=== PATIENT | female | born 1970 | race Caucasian/White ===

== ENCOUNTER → 2018-01-24 08:54 | Outpatient (CLI) | payer MEDICARE, OTHER, SELFPAY ==
--- NOTE | 2018-01-24 08:56 | MM_ITS ---
MM Dig screening mamm BI w/CAD CAD Screening COMPARISON: Digital mammograms with CAD 01/12/2017 INDICATION: There is no personal or family history of breast cancer TECHNIQUE: Standard CC and MLO images were obtained. R2 CAD reviewed. FINDINGS: The breasts are composed primarily of fat with minimal scattered fibroglandular densities throughout each breast. There are scattered benign-appearing calcifications in each breast. There is minimal arterial calcification right breast. There is no suspicious lesion and there are no suspicious microcalcifications. IMPRESSION: Fatty type breast parenchyma with no suspicious lesion seen BI-RADS Category: 2 Benign Finding(s) RECOMMENDED FOLLOW-UP: 1YR - 1 YEAR FOLLOW-UP (A letter has been sent to the patient regarding results of the study.)
== END ==
PROVIDERS: PCP Emergency Medicine; Visit Provider Emergency Medicine
DX: Z12.31 Encounter for screening mammogram for malignant neoplasm of breast (principal)
CPT/HCPCS: 77067

== ENCOUNTER → 2019-02-15 09:43 | Outpatient (CLI) | payer MEDICARE, OTHER, SELFPAY ==
--- NOTE | 2019-02-15 09:43 | MM_ITS ---
PROCEDURE: MM DIG SCREENING MAMM BI W/CAD Patient Age:48Y CLINICAL INDICATION: screening 48-year-old female screening mammogram no hormones no new complaints noncontributory family history COMPARISON: [facility] DIG MAMM-SCREEN ACE W/CAD from 01/12/2017 [facility] MM Dig screening mamm BI w/CAD from 01/24/2018 TECHNIQUE: Standard CC and MLO images were obtained. R2 CAD reviewed. Large breast requiring additional CC and MLO views bilaterally so as to imaging entire breast FINDINGS: A generalized fatty replacement with minimal fibroglandular elements bilaterally. Scattered benign round dense calcifications bilateral. No new suspicious or dominant mass, no suspicious calcifications. No significant change since previous studies. The bilateral follow-up in 1 year recommended IMPRESSION: Stable bilateral mammogram. Bilateral follow-up1 year recommended. Low-density breast generalized fatty replacement with benign appearing calcifications bilaterally BI-RAD Category: 2 Benign Finding(s) FOLLOW-UP: 1YR 1 Year Follow-up (A letter has been sent to the patient regarding results of the study.) Dictated by: Ulysses Vaz MD 02/19/2019 17:49 Electronically signed by Ulysses Vaz MD in [place] 02/19/2019 17:49
== END ==
PROVIDERS: PCP Emergency Medicine; Visit Provider Emergency Medicine
DX: Z12.31 Encounter for screening mammogram for malignant neoplasm of breast (principal)
CPT/HCPCS: 77067

== ENCOUNTER → 2023-02-04 10:16 | Outpatient (CLI) | payer MEDICARE, OTHER, SELFPAY ==
--- NOTE | 2023-02-04 10:19 | MM_ITS ---
PROCEDURE INFORMATION: Exam: MG Bilateral Screening 3D Mammography Exam date and time: 02/04/2023 10:25 AM Age: 52 years old Clinical indication: Screening mammogram TECHNIQUE: Imaging protocol: Bilateral Screening tomosynthesis and 2D mammography including computer-aided detection (CAD) when performed. COMPARISON: 1. MG MM DIG SCREENING MAMM BI W/CAD 02/15/2019 9:53 AM 2. MG [facility] MM Dig screening mamm BI w/CAD 01/24/2018 9:19 AM 3. MG [facility] DIG MAMM-SCREEN ACE W/CAD 01/12/2017 3:41 PM FINDINGS: MAMMOGRAPHY: Breast composition: There are scattered areas of fibroglandular density. Mass: None. Architectural distortion: No new or suspicious architectural distortion. Calcifications: No new or suspicious calcifications are present Asymmetric density: No new or suspicious asymmetric density is present Skin thickening: None. Axillary adenopathy: None. IMPRESSION: No mammographic evidence of malignancy. Recommend annual screening mammography unless otherwise clinically indicated. ASSESSMENT: BI-RADS category 1: Negative
== END ==
PROVIDERS: PCP Internal Medicine; Visit Provider Internal Medicine
DX: Z12.31 Encounter for screening mammogram for malignant neoplasm of breast (principal)
CPT/HCPCS: 77063; 77067

== ENCOUNTER 2023-06-26 10:51 | Inpatient (IN) | payer MEDICARE, OTHER, SELFPAY ==
[2023-06-26] VITALS (22 sets, daily range): BP systolic 89–143; BP diastolic 33–82; PULSE 110–129; RESP 16–32; TEMP 36.4–37; O2SAT 88–98; BMI 47.7; BMI 46.2; BMI 46.3
--- NOTE | 2023-06-26 10:28 | PC.NURSE ---
DR KO AT BEDSIDE
--- NOTE | 2023-06-26 10:31 | ECG_ITS ---
APPROVED REPORT Exam: Resting ECG HR:129 bpm ECG Measurements Heart Rate 129 AXES MD 159 P -66 QRSd 161 QRS -60 QT 368 T 110 QTc 444 Conclusion ECTOPIC ATRIAL TACHYCARDIA INTRAVENTRICULAR CONDUCTION DELAY [130+ ms QRS DURATION] LATERAL MYOCARDIAL INFARCTION , PROBABLY RECENT [40+ ms Q WAVE AND/OR ST/T Left bundle branch block with borderline excessive discordance Electronically signed by : GIDEON KO, 06/26/2023 12:41:47
--- NOTE | 2023-06-26 10:37 | CT_ITS ---
PROCEDURE INFORMATION: Exam: CTA Chest With Contrast Exam date and time: 06/26/2023 11:19 AM Age: 53 years old Clinical indication: Pain; Radiating; Additional info: Prev cp to back, hypoxic/tachy TECHNIQUE: Imaging protocol: Computed tomographic angiography of the chest with contrast. Exam focused on the arteries. 3D rendering (Not supervised by radiologist): MIP and/or 3D reconstructed images were created by the technologist. Radiation optimization: All CT scans at this facility use at least one of these dose optimization techniques: automated exposure control; mA and/or kV adjustment per patient size (includes targeted exams where dose is matched to clinical indication); or iterative reconstruction. Contrast material: ISOVUE; Contrast volume: 100 ml; Contrast route: INTRAVENOUS (IV); COMPARISON: No relevant prior studies available. FINDINGS: Pulmonary arteries: Normal. No pulmonary emboli. Aorta: Unremarkable. No aortic aneurysm. No aortic dissection. Lungs: There is interstitial prominence in both lungs likely representing a component of interstitial edema. In addition there are subtle hazy opacities in the right upper lobe which could represent developing pneumonia. Pleural spaces: Small right pleural effusion. No pneumothorax. Heart: Unremarkable. No cardiomegaly. No pericardial effusion. Coronary arteries: Calcified coronary artery disease. Lymph nodes: Unremarkable. No enlarged lymph nodes. Bones/joints: Chronic degenerative disc disease of the midthoracic spine. Soft tissues: Unremarkable. IMPRESSION: 1. No evidence of PE 2. Calcified coronary artery disease 3. Small right pleural effusion 4. Interstitial prominence throughout both lungs concerning for mild interstitial edema 5. Subtle hazy opacities in the right upper lobe concerning for pneumonia
--- NOTE | 2023-06-26 10:40 | PC.NURSE ---
DR KO SPEAKING WITH DR BECERRA
[2023-06-26 10:41] LABS: VBG HCO3 16.9 mmol/L (23-30); VBG Oxygen Saturation 70.3 % (50-70); VBG PCO2 32.6 mmol/L (35-51); VBG PH 7.33 mmol/L (7.31-7.41); VBG PO2 41.2 mmol/L (28-40); VBG Total CO2 17.9 mmol/L (23-27)
--- NOTE | 2023-06-26 10:41 | HMH.EDCP ---
Discharge Plan Disposition Patient Disposition: Admitted Chief Complaint: Shortness of Breath/Dyspnea Prescriptions Prescriptions: No Action metformin 500 mg tablet 500 mg PO BID citalopram 40 mg tablet 40 mg PO DAILY simvastatin 20 mg tablet 20 mg PO DAILY levothyroxine 150 mcg tablet 150 mcg PO DAILY norethindrone acetate 5 mg tablet 5 mg PO DAILY ibuprofen 600 mg tablet 600 mg PO Q6HP PRN (Reason: Arthritis) Patient Comments: GIVE 1 TABLET BY MOUTH WITH FOOD EVERY 6 HOURS NEEDED bupropion HCl 300 mg tablet extended release 24 hr 300 mg PO DAILY lactulose 10 gram/15 mL solution 30 ml PO BID Patient Comments: GIVE 30ML BY MOUTH TWICE A DAY NEEDED FOR CONSTIPATION Icy Hot 30-10 % cream 1 applic TOPICAL BIDP PRN (Reason: Arthritis) Patient Comments: APPLY TO AFFECTED AREAS 2 TIMES A DAY NEEDED insulin glargine [Lantus Solostar U-100 Insulin] 100 unit/mL (3 mL) insulin pen 7 unit SQ DAILY Patient Comments: Inject 7 unit subcutaneously once a day Referrals Follow up/Referrals: Foreign Cotter DO [Primary Care Provider] - See instructions Clinical Impressions Clinical Impression: ACS (acute coronary syndrome), Pneumonia, Hyperosmolar hyperglycemic state (HHS), Acute hypoxic respiratory failure Discharge ED Provider: Cortes Hussein HPI General Chief Complaint: Shortness of Breath/Dyspnea Stated Complaint: SOA/ possible stemi Time Seen by Provider: 06/26/23 10:51 History of Present Illness HPI narrative: Patient is a 53-year-old female with past medical history of hypertension, hyperlipidemia, insulin-dependent diabetes who presents emergency department for evaluation of shortness of breath and chest pain. Patient had some chest pain on Tuesday, there was associated back pain. Since then she has not had chest pain however she has had persistent shortness of breath. She lives at [facility] and she was found to have pulse ox in the 50s at [facility], upon EMS arrival pulse ox was in the 80s requiring nonrebreather to get to greater than 90%. IV access obtained and patient was transferred here for continued evaluation. Patient denies current chest pain, abdominal pain, acute rashes or arthralgias, other symptoms at this time with the exception of her shortness of breath. She intermittently is compliant with her insulin and takes 7 units daily. She has taken her insulin this morning. Related Data Home Medications Medication Instructions Recorded Confirmed bupropion HCl 300 mg 24 hr tablet, 300 mg PO DAILY 06/26/23 06/26/23 extended release citalopram 40 mg tablet 40 mg PO DAILY 06/26/23 06/26/23 ibuprofen 600 mg tablet 600 mg PO Q6HP PRN Arthritis 06/26/23 06/26/23 insulin glargine 100 unit/mL (3 7 unit SQ DAILY 06/26/23 06/26/23 mL) subcutaneous pen (Lantus Solostar U-100 Insulin) lactulose 10 gram/15 mL oral 30 ml PO BID 06/26/23 06/26/23 solution levothyroxine 150 mcg tablet 150 mcg PO DAILY 06/26/23 06/26/23 metformin 500 mg tablet 500 mg PO BID 06/26/23 06/26/23 methyl salicylate 30 %-menthol 10 1 applic topical BIDP PRN Arthritis 06/26/23 06/26/23 % topical cream (Icy Hot) norethindrone acetate 5 mg tablet 5 mg PO DAILY 06/26/23 06/26/23 simvastatin 20 mg tablet 20 mg PO DAILY 06/26/23 06/26/23 Allergies Allergy/AdvReac Type Severity Reaction Status Date / Time No Known Allergies Allergy Verified 06/26/23 11:01 [facility] Disclaimer: The information contained in this section may have been updated after the patient was seen, as this information can be updated by other users. Medical History (Updated 06/26/23 @ 12:30 by Cortes Hussein MD) History of anemia Depressed Arthritis Hypothyroid Diabetes Social History Smoking Status: Light tobacco smoker alcohol intake: never current occupational status: other Travel in the last 8 weeks: None ROS Obtained: Yes Systems reviewed as appropriate & no additional complaints except as documented Physical Exam General General appearance: alert and in no apparent distress Head Head exam: atraumatic and normocephalic Eye Eye exam: Present PERRL and EOMI ENT ENT exam: Present mucous membranes moist Neck Neck exam: Present normal inspection Chest Chest inspection: Present normal inspection and symmetric chest wall rise Respiratory Respiratory exam: Present normal lung sounds bilaterally and other (Tachypneic); Absent respiratory distress Cardiovascular Cardiovascular exam: Present normal rhythm and tachycardia Abdominal Exam Abdominal exam: Present soft; Absent tenderness Extremities Exam Extremities exam: Present normal inspection and other (No pitting edema) Neurological Exam Neurological exam: Present alert Psychiatric Psychiatric exam: Present normal affect Skin Skin exam: Present warm and dry HEART Score HEART Score HEART Score assessment performed?: Yes History (anamnesis): Moderately suspicious ECG: Non-specific disturbance Age: 45-65 years Risk factors: 1-2 risk factors Troponin: > 3x normal limit HEART Score: 6 Procedures Miscellaneous Procedure Procedure Performed: Indication: Shortness of breath Identified cardiac views: Parasternal long and parasternal short axis Findings: Cardiac activity present, left ventricular hypokinesis present, no large pericardial effusion. Impression: -From above Images were saved to permanent archive The study was technically adequate CPT: 02884 This study was performed by me, and I personally interpreted all images/videos. Based on my clinical judgement, these images were adequate and did necessitate further imaging. Critical Care Critical Care Time Critical Care Time: Yes Attestation: On 06/26/23, the high probability of a clinically significant, sudden or life threatening deterioration of the following system(s) required my full and direct attention, intervention and personal management. The time I documented below is in addition to time spent performing reported procedures but includes the following listed in this critical care notation. Total Time Total Critical Care Time: 65 Medical Decision Making Paramjit Inquiry Pt receiving controlled substance: No Vital Signs Vital Signs: 06/26/23 10:51 06/26/23 11:00 06/26/23 11:31 Temperature 97.6 F Temperature Source Axillary Pulse Rate 116 H Pulse Rate [Right] 128 H Respiratory Rate 29 H 32 H 31 H Blood Pressure 89/58 L Blood Pressure [Right Arm] 104/78 L Blood Pressure Mean 67 Blood Pressure Mean [Right Arm] 86 Blood Pressure Source [Right Arm] Automatic Cuff 02 Sat by Pulse Oximetry 98 95 Oxygen Delivery Method Non-Rebreather 06/26/23 11:40 Temperature Temperature Source Pulse Rate 115 H Pulse Rate [Right] Respiratory Rate 32 H Blood Pressure 106/72 L Blood Pressure [Right Arm] Blood Pressure Mean Blood Pressure Mean [Right Arm] Blood Pressure Source [Right Arm] 02 Sat by Pulse Oximetry 92 L Oxygen Delivery Method Lab Data Labs: Lab Results 06/26/23 10:30: WBC 16.9 H, RBC 5.04, Hgb 15.3, Hct 50.0 H, MCV 99.2 H, MCH 30.4, MCHC 30.7 L, RDW 13.5, Plt Count 234, MPV 9.8, Neut % (Auto) 81.8 H, Lymph % (Auto) 13.5, [place] % (Auto) 3.8, Eos % (Auto) 0.6, Baso % (Auto) 0.4, Neut # (Auto) 13.8 H, Lymph # (Auto) 2.3, [place] # (Auto) 0.6, Eos # (Auto) 0.1, Baso # (Auto) 0.1, Total Counted 100, Neutrophils % (Manual) 83 H, Band Neutrophils % 5.0, Lymphocytes % (Manual) 7 L, Monocytes % (Manual) 5, Platelet Estimate Normal, RBC Morphology Normal, PT 11.5, INR 1.07, APTT 27.7, Sodium 127 L, Potassium 5.7 H, Chloride 95 L, Carbon Dioxide 20 L, Anion Gap 17.7 H, BUN 24 H, Creatinine 1.00, Estimated Creat Clear 56, Estimated GFR 58 L, Est GFR ( Amer) 70, Glucose 747 H*, Calcium 9.7, Total Bilirubin 1.5 H, AST 225 H, ALT 62, Alkaline Phosphatase 96, Troponin I 53.10 H, Total Protein 6.7, Albumin 3.8, Globulin 2.9, Albumin/Globulin Ratio 1.3, Lipase 70, Acetone Level Small 06/26/23 10:37: VBG pH 7.33, VBG pCO2 32.6 L, VBG pO2 41.2 H, VBG HCO3 16.9 L, VBG Total CO2 17.9 L, VBG O2 Saturation 70.3 H, VBG Base Excess -9.0 L, VBG Lactic Acid 3.9 H 06/26/23 10:44: Hemoglobin A1c 12.8 H, Phosphorus 5.6 H, Magnesium 1.6, Ammonia < 9 L 06/26/23 11:09: Urine RBC None, Urine WBC 3-5, Ur Squamous Epith Cells Occasional, Urine Bacteria 2+ 06/26/23 10:30 06/26/23 10:30 Response Orders (Tests/Meds): ED MEDICATIONS Generic Name Dose Route Start Last Admin Trade Name Freq PRN Reason Stop Dose Admin Sodium Chloride 1,000 mls @ 150 mls/hr 06/26/23 13:00 Sod Chlor 0.9% 1000ml Bag IV 07/26/23 12:59 .Q6H40M [facility] Insulin Human Regular 100 unit 101 mls @ 12.12 mls/hr 06/26/23 11:00 06/26/23 11:31 / Sodium Chloride IV 07/26/23 10:59 12 unit/hr .Q8H20M [facility] 12.12 mls/hr Administration Protocol 12 UNIT/HR Sodium Chloride 2,000 mls @ 999 mls/hr 06/26/23 11:33 Sod Chlor 0.9% 1000ml Bag IV 06/26/23 13:32 .Q2H1M ONE Heparin Sodium/Dextrose 500 mls @ 20 mls/hr 06/26/23 11:45 06/26/23 11:42 Heparin 25,000 Units In D5w 500ml Premix IV 07/26/23 11:44 20 mls/hr .Q25H [facility] Administration 1,000 UNITS/HR Ceftriaxone Sodium 1 gm/ 50 mls @ 100 mls/hr 06/26/23 12:30 Sodium Chloride IV 07/06/23 12:29 Q24H [facility] Azithromycin 500 mg/ Sodium 250 mls @ 250 mls/hr 06/26/23 12:25 Chloride IV 06/26/23 12:26 ONCE ONE Nitroglycerin 0.4 mg 06/26/23 10:37 Nitroglycerin 0.4mg Sl Tablet SL 06/27/23 10:38 Q5MINP PRN Chest Pain Discontinued Medications Generic Name Dose Route Start Last Admin Trade Name Freq PRN Reason Stop Dose Admin Aspirin 324 mg 06/26/23 10:37 06/26/23 10:47 Aspirin 81mg Chewable Tablet PO 06/26/23 10:38 162 mg ONCE ONE Administration Aspirin 81 mg 06/26/23 10:44 06/26/23 10:47 Aspirin 81mg Chewable Tablet PO 06/26/23 10:45 Not Given ONCE ONE Heparin Sodium (Porcine) 4,000 unit 06/26/23 11:45 06/26/23 11:42 Heparin Sodium 5,000 Unit/Ml Vial IV 06/26/23 11:46 4,000 unit ONCE ONE Administration Lactated Ringer's 1,000 mls @ 999 mls/hr 06/26/23 10:41 06/26/23 10:47 Lactated Ringer's 1000 Ml Bag IV 06/26/23 11:41 999 mls/hr .Q1H1M ONE Administration Sodium Chloride 2,000 mls @ 999 mls/hr 06/26/23 11:00 Sod Chlor 0.9% 1000ml Bag IV 07/26/23 10:59 .Q2H1M RACHEL Iopamidol 100 ml 06/26/23 11:29 06/26/23 11:31 Iopamidol-370 (76%);100ml Bottle IV 06/26/23 11:30 100 ml ONCE ONE Administration Miscellaneous 1 each 06/26/23 11:45 Heparin Drip Consult NOTAPPLIC 07/26/23 11:44 CONSULT PHARMACY [facility] Sodium Chloride 50 ml 06/26/23 11:29 06/26/23 11:30 0.9 % Sodium Chloride 50 Ml Vial IV 06/26/23 11:30 50 ml ONCE ONE Administration Sodium Chloride 10 ml 06/26/23 11:29 06/26/23 11:30 Sodium Chloride 0.9% 10ml Syr (Rad Only) IV 06/26/23 11:30 10 ml ONCE ONE Administration ORDERS Category Date Time Status CT angio chest - dissection Stat Cat Scan 06/26/23 10:37 Completed Cardiology Consult [Consult to Cardiology] [CONS] Cons 06/26/23 11:51 Active Routine POCUS Point of Care (ER Only) Stat Exams 06/26/23 11:43 Ordered Acetone, Serum (Rapid) Stat Lab 06/26/23 10:30 Completed Ammonia Stat Lab 06/26/23 10:44 Completed Complete Blood Count Auto Diff Stat Lab 06/26/23 10:30 Completed Comprehensive Metabolic Panel Stat Lab 06/26/23 10:30 Completed Hemoglobin A1C Stat Lab 06/26/23 10:44 Completed Lipase Stat Lab 06/26/23 10:30 Completed Magnesium Stat Lab 06/26/23 10:44 Completed PT INR [Prothrombin Time INR] Stat Lab 06/26/23 10:30 Completed PTT Heparin (inpatient only) Stat Lab 06/26/23 10:30 Completed Phosphorous Stat Lab 06/26/23 10:44 Completed Troponin I Q3H Lab 06/26/23 10:30 Completed Troponin I Q3H Lab 06/26/23 13:45 Ordered Troponin I Q3H Lab 06/26/23 16:45 Ordered UA [Urinalysis and Microscopic] Stat Lab 06/26/23 11:09 Results Blood Culture Stat Micro 06/26/23 10:45 Received Urine Culture Stat Micro 06/26/23 11:09 Received Venous Blood Gas Routine RT 06/26/23 10:37 Completed CA echo doppler complete Stat Y 06/26/23 11:51 Ordered ECG Data Tracing #1: ECG Narrative: Independently interpreted by me, rate is 129, rhythm is regular, left bundle branch block, negative Sgarbossa, QTc 444. Tracing #2: ECG Narrative: Independently interpreted by me, rate is 116, rhythm is regular, left bundle branch block, positive Sgarbossa in the anterior lateral leads. MDM Narrative Medical Decision Narrative: In summary patient is a 53-year-old female past medical history described above who presents emergency department for evaluation of shortness of breath. Patient is hemodynamically stable nontoxic-appearing upon arrival, tachycardic, tachypneic, on nonrebreather saturating 99%. Oxygen will be de-escalated to nasal cannula. Fingerstick blood glucose reads high. Differential includes DKA, aortic dissection, pulmonary embolism, ACS, among others. Workup will be conducted with hematologic labs, CTA chest, EKG, serial troponins, VBG, urinalysis. Initial inventions include crystalloid bolus, aspirin half dose given that patient had aspirin half dose prior to arrival with EMS. VBG interpreted by me, lactate 3.86, glucose 739, pH 7.33, sodium 129.2. Given this I suspect that patient has HHS, corrected sodium within normal limits. HHS protocol will be initiated, 2 L crystalloid followed by maintenance, insulin infusion initiated. Troponin resulted at 53.1, given history of chest pain on Tuesday and none currently I suspect patient had ACS on Tuesday given significantly elevated troponin. Case was discussed with cardiology Dr. Lara, we will use judicious fluid resuscitation with 1 L crystalloid bolus rather than 2 and maintenance fluid given suspected LV dysfunction that will manifest. No acute indication for Computer Graphics Illustrator at this time given timeframe, no hemodynamic instability, no electrical instability currently. Patient will be started on heparin drip. CT imaging shows subtle hazy opacities in right upper lobe concerning for pneumonia for which patient will be started on ceftriaxone and azithromycin given acute hypoxic respiratory failure. There is a small right pleural effusion, no evidence of PE, no evidence of aortic dissection. Aggressive fluid resuscitation with sepsis bolus fluids will be deferred given patient has ACS and this will likely be deleterious to her condition. The case was discussed with hospital medicine who admit the patient their service for continued evaluation at this time.
[2023-06-26 10:42] LABS: Lactate Venous 3.9 mmol/L (0.4-2.0)
[2023-06-26] MEDS: LACTATED RINGERS 1000ML 1,000 ML 999 ML IV (10:47)
[2023-06-26] MEDS: ASPIRIN 81MG CHEWABLE TABLET 324 MG PO (10:47)
[2023-06-26 10:48] LABS: Chloride 95 mmol/L (98-107)
[2023-06-26 10:49] LABS: Potassium 5.7 mmoL/L (3.5-5.1); Sodium 127 mmol/L (136-145)
[2023-06-26 10:51] LABS: Alanine Aminotransferase 62 U/L (12-78); Aspartate Amino Transferase 225 U/L (14-36); Blood Urea Nitrogen 24 mg/dl (7-17); Creatinine Clearance Estimated 56 mL/min (50-200); Estimated Glomerular Filt Rate 58 ml/min (>60); GFR (African American) 70 ML/MIN (>60)
[2023-06-26 10:52] LABS: Albumin Level 3.8 g/dl (3.5-5.0); Albumin/Globulin Ratio 1.3 (1.1-1.8); Alkaline Phosphatase 96 U/L (38-126); Anion Gap 17.7 mEq/L (5-15); Bilirubin,Total 1.5 mg/dl (0.2-1.3); Calcium 9.7 mg/dl (8.4-10.2); Carbon Dioxide 20 mmol/L (22.0-30.0); Globulin 2.9 g/dL (1.3-3.2); Total Protein,Serum 6.7 g/dl (6.3-8.2)
[2023-06-26 10:55] LABS: Basophils # 0.1 K/mm3 (0-0.2); Basophils % 0.4 % (0.1-2.0); Eosinophils # 0.1 K/mm3 (0.0-0.4); Eosinophils % 0.6 % (0.1-12.0); Hemoglobin 15.3 g/dL (12.2-16.2); Lymphocytes # 2.3 K/mm3 (0.7-4.5); Lymphocytes % 13.5 % (10-50); Mean Corpuscular HGB Conc 30.7 g/dL (31.8-35.4); Mean Corpuscular Hemoglobin 30.4 pg (27.0-31.2); Mean Corpuscular Volume 99.2 fl (81-99); Mean Platelet Volume 9.8 fl (7.4-10.4); Monocytes # 0.6 K/mm3 (0.1-1.0); Monocytes % 3.8 % (1.7-9.3); Neutrophils # 13.8 K/mm3 (1.8-7.8); Neutrophils % 81.8 % (37.0-80.0); Platelet Count 234 K/mm3 (142-424); Red Blood Count 5.04 M/mm3 (4.20-5.40); Red Cell Distribution Width 13.5 % (11.5-17.5); White Blood Count 16.9 K/mm3 (4.8-10.8)
[2023-06-26 10:57] LABS: MANUAL DIFFERENTIAL MANUAL DIFFERENTIAL (MANUAL DIFF)
[2023-06-26 10:58] LABS: Acetone, Serum (Rapid) Small (None Detect)
[2023-06-26 10:59] LABS: Phosphorous 5.6 mg/dl (2.5-4.5)
[2023-06-26 11:00] LABS: Glucose 747 mg/dl (74-100)
[2023-06-26 11:00] LABS: Magnesium 1.6 mg/dl (1.6-2.3)
--- NOTE | 2023-06-26 11:05 | PC.NURSE ---
Pt gone to RAD via wheelchair
[2023-06-26 11:13] LABS: Microscopic, Urine URINE MICROSCOPIC (MICROSCOPIC)
[2023-06-26 11:19] LABS: Appearance,Urine CLEAR (Clear); Bilirubin,Urine Negative (Negative); Blood, Urine TRACE-I (Negative); Color,Urine YELLOW (Yellow); Glucose,Urine (UA) 3+ (Negative); Ketones,Urine 1+ (Negative); Leukocyte Esterase,Urine TRACE (Negative); Nitrate,Urine POSITIVE (Negative); Protein,Urine Negative (Negative); Specific Gravity, Urine <= 1.005 (1.005-1.030); Urobilinogen,Urine 0.2 EU/dl (0.2)
[2023-06-26 11:20] LABS: Ammonia < 9 umol/L (9-30)
[2023-06-26 11:20] LABS: Lipase 70 U/L (23-300)
[2023-06-26] MEDS: SODIUM CHLORIDE 0.9% 10ML SYR (RAD ONLY) 10 ML IV (11:30)
[2023-06-26] MEDS: 0.9 % SODIUM CHLORIDE 50 ML VIAL IV (11:30)
[2023-06-26 11:31] LABS: Lymphocytes % 7 % (10-50); Monocytes % 5 % (2-9); Neutrophils % 83 % (42-76); Total Cells Counted 100
[2023-06-26] MEDS: IOPAMIDOL-370 (76%);100ML BOTTLE 100 ML IV (11:31)
[2023-06-26] MEDS: INSULIN REGULAR, HUMAN 100 UNIT in 0.9 % SODIUM CHLORIDE 100 ML 12.1199999999999992 UNIT IV ×2 (11:31→16:08)
[2023-06-26 11:32] LABS: Platelet Estimate Normal; RBC Morphology Normal
--- NOTE | 2023-06-26 11:35 | PC.NURSE ---
Pt returned to room
[2023-06-26 11:37] LABS: Bacteria,Urine 2+ /lpf; Squamous Epithelial Cell,Urine Occasional #/hpf (0-5)
--- NOTE | 2023-06-26 11:37 | ECG_ITS ---
APPROVED REPORT Exam: Resting ECG HR:116 bpm ECG Measurements Heart Rate 116 AXES GA 144 P -17 QRSd 166 QRS -60 QT 353 T 114 QTc 422 Conclusion SINUS TACHYCARDIA INTRAVENTRICULAR CONDUCTION DELAY [130+ ms QRS DURATION] LATERAL MYOCARDIAL INFARCTION , OF INDETERMINATE AGE [40+ ms Q WAVE AND/OR ST/T ABNORMALITY IN I/aVL/V5/V6] ABNORMAL ECG Electronically signed by : GIDEON KO, 06/26/2023 12:40:17
[2023-06-26] MEDS: HEPARIN 25,000 UNITS/D5W 500 ML 20 UNIT IV (11:42)
[2023-06-26] MEDS: HEPARIN SODIUM 5,000 UNIT/ML VIAL 4000 UNIT IV ×2 (11:42→19:14)
--- NOTE | 2023-06-26 11:47 | PC.NURSE ---
Pilar from [facility] called asking for an update on pt. Pilar was advised that pt would be getting admitted and if they needed further information the embedded software manager could call for an update. Pilar also advised, I checked her sugar this morning and it was 455. I also gave her a shot. When asked Pilar advised the shot was a, Amaral syringe
[2023-06-26 11:50] LABS: INR 1.07 (0.9-1.1); Prothrombin Time 11.5 seconds (10.1-12.5)
[2023-06-26 12:03] LABS: PTT Heparin (inpatient only) 27.7 Seconds (23.6-34.0)
[2023-06-26 12:04] LABS: Hemoglobin A1C 12.8 % (4.0-6.0)
--- NOTE | 2023-06-26 12:36 | PC.NURSE ---
CHAINER NOTIFIED OF ADMISSION
--- NOTE | 2023-06-26 12:44 | PC.NURSE ---
Dr. Hussein at BS to update pt on current POC
--- NOTE | 2023-06-26 12:44 | PC.NURSE ---
rechecked glucose. [address] Hussein notified.
--- NOTE | 2023-06-26 12:47 | PC.NURSE ---
waiting on orders from Dr Carlson. ER notified and will go get pt once orders are placed. Dr Carlson notified.
--- NOTE | 2023-06-26 12:47 | PC.NURSE ---
report given to evans carrillo
[2023-06-26] MEDS: CEFTRIAXONE 1 GM 1 GM in 0.9 % SODIUM CHLORIDE 50 ML IV (12:51)
--- NOTE | 2023-06-26 12:51 | PC.NURSE ---
Confirmed with Raffaele in Pharmacy compatibility with ABX, rocephin and azithromycin are y site compatibility with heparin gtt.
--- NOTE | 2023-06-26 13:10 | PC.NURSE ---
Pt arrived to the floor at this time via stretcher.
[2023-06-26] MEDS: INSULIN REGULAR, HUMAN 100 UNIT in 0.9 % SODIUM CHLORIDE 100 ML 14.1400000000000006 UNIT IV (13:15)
--- NOTE | 2023-06-26 13:19 | P.CONPHA_ITS ---
Pharmacy Intervention Comments: MEDICATION RECONCILIATION COMPLETED ON PATIENT USING MAR FROM [facility]. -PAULO MOYA, NUSRATD
--- NOTE | 2023-06-26 13:19 | HMH.PHAINT1 ---
Pharmacy Intervention Comments: MEDICATION RECONCILIATION COMPLETED ON PATIENT USING MAR FROM ASSISTED. -PAULO MOYA, NUSRATD
--- NOTE | 2023-06-26 13:22 | PC.NURSE ---
Ok to give normal saline at 75 ml/hr instead of 150 ml/hr per dr. reza due to plueral effusions and pneumonia
[2023-06-26] MEDS: AZITHROMYCIN 500 MG in 0.9 % SODIUM CHLORIDE 250 ML 250 MG IV (13:37)
[2023-06-26] MEDS: 0.9 % SODIUM CHLORIDE 1000ML 1,000 ML 75 ML IV (13:38)
[2023-06-26 13:59] LABS: POC Glucose,Bedside 452 (70-110)
[2023-06-26 14:13] LABS: POC Glucose,Bedside 367 (70-110)
[2023-06-26 14:23] LABS: Anion Gap 17.3 mEq/L (5-15); Blood Urea Nitrogen 23 mg/dl (7-17); Calcium 9.8 mg/dl (8.4-10.2); Carbon Dioxide 23 mmol/L (22.0-30.0); Chloride 96 mmol/L (98-107); Creatinine Clearance Estimated 70 mL/min (50-200); Estimated Glomerular Filt Rate 75 ml/min (>60); GFR (African American) 91 ML/MIN (>60); Glucose 357 mg/dl (74-100); Magnesium 1.7 mg/dl (1.6-2.3); Phosphorous 4.7 mg/dl (2.5-4.5); Potassium 4.3 mmoL/L (3.5-5.1); Sodium 132 mmol/L (136-145)
[2023-06-26 14:37] LABS: Reflex Lactic Add Lactic Reflex
[2023-06-26 15:20] LABS: Lactic Acid Follow Up (RFLX 1) 4.4 mmol/L (0.7-2.1)
[2023-06-26 16:18] LABS: POC Glucose,Bedside 233 (70-110)
[2023-06-26 16:18] LABS: POC Glucose,Bedside 304 (70-110)
[2023-06-26 16:43] LABS: Procalcitonin 0.424 ng/mL (0.0-2.0)
[2023-06-26] MEDS: CEFEPIME HCL 2 GM in 0.9 % SODIUM CHLORIDE 100 ML IV (16:46)
[2023-06-26] MEDS: VANCOMYCIN CONSULT REQUEST 1 EACH NOTAPPLIC (16:52)
[2023-06-26 17:05] LABS: Reflex Lactic (2 hrs) Add Lactic Reflex
[2023-06-26 17:26] LABS: Chloride 102 mmol/L (98-107); Sodium 134 mmol/L (136-145)
[2023-06-26 17:29] LABS: Blood Urea Nitrogen 23 mg/dl (7-17); Carbon Dioxide 24 mmol/L (22.0-30.0); Creatinine Clearance Estimated 70 mL/min (50-200); Estimated Glomerular Filt Rate 75 ml/min (>60); GFR (African American) 91 ML/MIN (>60); Phosphorous 3.7 mg/dl (2.5-4.5)
[2023-06-26 17:30] LABS: Calcium 9.7 mg/dl (8.4-10.2); Glucose 112 mg/dl (74-100); Magnesium 1.7 mg/dl (1.6-2.3)
[2023-06-26 17:34] LABS: POC Glucose,Bedside 148 (70-110)
[2023-06-26] MEDS: VANCOMYCIN HCL 2,500 MG in 0.9 % SODIUM CHLORIDE 250 ML 125 MG IV (17:51)
--- NOTE | 2023-06-26 17:59 | PC.NURSE ---
attempted to call Dr Carlson at 17:59 and 1817 to report critical values. was able to reach him at 1826 with new orders placed.
[2023-06-26 18:27] LABS: Lactic Acid Follow up (RFLX 2) 5.8 mmol/L (0.7-2.1)
[2023-06-26 18:50] LABS: PTT Heparin (inpatient only) 30.6 Seconds (23.6-34.0)
[2023-06-26 18:59] LABS: POC Glucose,Bedside 125 (70-110)
[2023-06-26 18:59] LABS: POC Glucose,Bedside 156 (70-110)
--- NOTE | 2023-06-26 19:00 | PC.NURSE ---
erika called with overnight pharmacy. she said to increase to 1,350 units/hr. rate of 27ml/hr for heparin drop. 4,000 unit bolus as well.
[2023-06-26] MEDS: D5W/0.9% NaCl w/20mEq KCL 1,000 ML 75 ML IV (20:27)
[2023-06-26] MEDS: 0.9% NaCl w/20mEq KCL 1,000 ML 150 ML IV (20:36)
[2023-06-26 20:49] LABS: POC Glucose,Bedside 162 (70-110)
[2023-06-26 21:58] LABS: Chloride 111 mmol/L (98-107); Potassium 5.4 mmoL/L (3.5-5.1); Sodium 135 mmol/L (136-145)
[2023-06-26 22:00] LABS: Blood Urea Nitrogen 23 mg/dl (7-17); Creatinine Clearance Estimated 80 mL/min (50-200); Estimated Glomerular Filt Rate 88 ml/min (>60); GFR (African American) 106 ML/MIN (>60)
[2023-06-26 22:01] LABS: Anion Gap 11.4 mEq/L (5-15); Calcium 9.3 mg/dl (8.4-10.2); Carbon Dioxide 18 mmol/L (22.0-30.0); Glucose 162 mg/dl (74-100); Magnesium 1.6 mg/dl (1.6-2.3); Phosphorous 3.7 mg/dl (2.5-4.5)
[2023-06-26 22:25] LABS: POC Glucose,Bedside 164 (70-110)
[2023-06-26] MEDS: INSULIN GLARGINE 100 UNITS/ML 3ML FLEXPEN 10 UNIT SQ (22:42)
[2023-06-27] VITALS (35 sets, daily range): BP systolic 81–139; BP diastolic 52–85; PULSE 60–142; RESP 16–31; TEMP 36.6–37.2; O2SAT 4–100; BMI 46.3
[2023-06-27 00:49] LABS: POC Glucose,Bedside 171 (70-110)
[2023-06-27 00:49] LABS: POC Glucose,Bedside 176 (70-110)
--- NOTE | 2023-06-27 01:43 | ECG_ITS ---
APPROVED REPORT Exam: Resting ECG HR:120 bpm ECG Measurements Heart Rate 120 AXES VA 164 P -2 QRSd 151 QRS -69 QT 296 T 104 QTc 367 Conclusion SINUS TACHYCARDIA INTRAVENTRICULAR CONDUCTION DELAY [130+ ms QRS DURATION] LATERAL MYOCARDIAL INFARCTION , PROBABLY RECENT [40+ ms Q WAVE AND/OR ST/T ABNORMALITY IN I/aVL/V5/V6] ACUTE [place] UNCONFIRMED REPORT Electronically signed by : Adelso Munoz MD 06/28/2023 21:37:20
--- NOTE | 2023-06-27 02:00 | ECG_ITS ---
APPROVED REPORT Exam: Resting ECG HR:62 bpm ECG Measurements Heart Rate 62 AXES OH 318 P 64 QRSd 153 QRS -79 QT 269 T 0 QTc 274 Conclusion SINUS RHYTHM WITH FIRST DEGREE AV BLOCK INTRAVENTRICULAR CONDUCTION DELAY [130+ ms QRS DURATION] LATERAL MYOCARDIAL INFARCTION , OF INDETERMINATE AGE [40+ ms Q WAVE AND/OR ST/T ABNORMALITY IN I/aVL/V5/V6] ABNORMAL ECG UNCONFIRMED REPORT Electronically signed by : Adelso Munoz MD 06/28/2023 21:36:53
--- NOTE | 2023-06-27 02:49 | EXP.RR ---
Acute Rapid Response Note Subjective Date Responded: 06/27/23 Time Responded: 02:49 Provider Note: bedside RN called for patient evaluation. patient found to be diaphoretic, clammy and pale. New EKG was ordered with repeated troponin. EKG showed ST elevation om aVL V5-V6. troponin around 50. patient does not have chest pain. anion gap was closed around 9.10p. cardiology was notified. patient is outside the 48 hrs windows of her first chest pain episode. Therefore is hard to determine if this a new STEMI or superimposed.,or part of the first. was also consulted for transfer to a highest level of care. patient does not qualify for emergency cath. therefore was placed on medicine bed waiting list. discussed with cardiology business systems manager at . they recommended [facility]. add aspirin and statin patient continue on heparin continuos infusion. On vancomycin and cefepime DKA resolved. Continue cardiac monitoring last VS 110/68 HR 120 93% O2 sat @4L NC. CTA from earlier does not showed signs of PE. mild interstitial edema. Objective Findings: Vital Signs - Last 4 Hours Temperature 98.4 F 06/26/23 20:00 Temperature Source Oral 06/26/23 20:00 Pulse Rate 110 H 06/27/23 00:00 Respiratory Rate 22 06/26/23 20:00 Blood Pressure 143/62 H 06/26/23 20:00 Blood Pressure Mean 89 06/26/23 20:00 Blood Pressure Source Automatic Cuff 06/26/23 20:00 Blood Pressure Position Sitting 06/26/23 19:09 02 Sat by Pulse Oximetry 91 L 06/26/23 20:00 Oxygen Delivery Method Nasal Cannula 06/26/23 20:37 Oxygen Flow Rate (LPM) 2 06/26/23 20:37 Lab Results for Past 12 Hours 06/27/23 02:00: Troponin I 50.30 H 06/27/23 00:42: POC Glucose 176 H 06/26/23 22:18: POC Glucose 164 H 06/26/23 21:30: Sodium 135 L, Potassium 5.4 H, Chloride 111 H, Carbon Dioxide 18 L, Anion Gap 11.4, BUN 23 H, Creatinine 0.70, Estimated Creat Clear 80, Estimated GFR 88, Est GFR ( Amer) 106, Glucose 162 H D, Calcium 9.3, Phosphorus 3.7, Magnesium 1.6 06/26/23 21:19: POC Glucose 171 H 06/26/23 20:05: POC Glucose 162 H 06/26/23 18:51: POC Glucose 125 H 06/26/23 18:10: APTT 30.6 06/26/23 17:56: POC Glucose 156 H 06/26/23 17:16: POC Glucose 148 H 06/26/23 17:10: Sodium 134 L, Potassium 5.0, Chloride 102, Carbon Dioxide 24, Anion Gap 13.0, BUN 23 H, Creatinine 0.80, Estimated Creat Clear 70, Estimated GFR 75, Est GFR ( Amer) 91, Glucose 112 H D, Lactate 5.8 H, Calcium 9.7, Phosphorus 3.7, Magnesium 1.7, Troponin I 49.20 H 06/26/23 16:05: POC Glucose 233 H 06/26/23 15:02: POC Glucose 304 H* 06/26/23 14:55: Lactate 4.4 H 06/26/23 13:30: Sodium 132 L, Potassium 4.3 D, Chloride 96 L, Carbon Dioxide 23, Anion Gap 17.3 H, BUN 23 H, Creatinine 0.80, Estimated Creat Clear 70, Estimated GFR 75, Est GFR ( Amer) 91 D, Glucose 357 H D, Calcium 9.8, Phosphorus 4.7 H, Magnesium 1.7, Troponin I 45.40 H, Procalcitonin 0.424 My Orders Category Date Time Status Diabetic Diet Diet 06/27/23 Breakfast Active PTT Heparin (inpatient only) Stat Lab 06/27/23 02:30 Received Trop I [Troponin I] Stat Lab 06/27/23 02:00 Completed 0.9% NaCl w/20mEq KCL [KCL 20 mEq in NS 1,000 ml IV Med 06/26/23 20:45 Discontinued Soln] 1,000 ml IV 150 mls/hr D5W/0.9% NaCl w/20mEq KCL [KCL 20 mEq in D5W-NS] 1,000 Med 06/26/23 20:15 Discontinued ml IV 75 mls/hr Insulin Glargine,Hum.rec.anlog [Lantus Solostar 100 Med 06/26/23 22:27 Once Units/mL 3mL flexpen] 10 unit SQ ONCE ONE Insulin Lispro [humaLOG 100 units/mL 3mL vial (SSI)] Med 06/27/23 06:00 Ordered See Protocol SQ ACHS 12-lead EKG Request [ECG Request] Stat Y 06/27/23 01:43 Ordered ECG Data Tracing #1: Attestation EKG: I reviewed this ECG and interpreted as documented below: ECG initial impression date: 06/27/23 ECG initial impression time: 02:11 Arrhythmias present: sinus tach Ischemic changes: acute STEMI and ST elevation Conduction abnormalities present: LBBB EKG compared to prior tracings: there are no significant changes Other Other Findings: troponin 50.3 Rapid Response Exam General General appearance: alert, obtunded and obese Head Head exam: atraumatic, normocephalic and normal inspection Eye Eye exam: Present normal appearance, PERRL and EOMI ENT ENT exam: Present normal exam Neck Neck exam: Present normal inspection and full ROM Chest Chest inspection: Present normal inspection and symmetric chest wall rise Respiratory Respiratory exam: Present normal lung sounds bilaterally Expanded Respiratory Exam Location: Left: rales and Right: rales Cardiovascular Cardiovascular exam: Present tachycardia and normal heart sounds Abdominal Exam Abdominal exam: Present soft and distention External exam: Present normal external exam Extremities Exam Extremities exam: Present normal inspection, full ROM and edema Back Exam Back exam: Present normal inspection Neurological Exam Neurological exam: Present alert Psychiatric Psychiatric exam: Present flat affect Skin Skin exam: Present diaphoresis and pallor; Absent normal color RR Procedures/Assess/Plan (1) ACS (acute coronary syndrome): Status: Acute (2) Hyperosmolar hyperglycemic state (HHS): Status: Acute (3) Acute hypoxic respiratory failure: Status: Acute (4) UTI (urinary tract infection): Status: Acute Qualifiers: Hematuria presence: without hematuria Urinary tract infection type: site unspecified Qualified Code(s): N39.0 - Urinary tract infection, site not specified Assessment and plan all Dx Assessment and Plan for all problems:: dd aspirin and statin will give her lasix 40mg one time dose patient continue on heparin continuos infusion. On vancomycin and cefepime DKA resolved. continue monitoring glucose. started lantus 10units baseline, on sliding scale Continue cardiac monitoring
[2023-06-27 02:56] LABS: PTT Heparin (inpatient only) 39.3 Seconds (23.6-34.0)
[2023-06-27] MEDS: HEPARIN SODIUM 5,000 UNIT/ML VIAL 4000 UNIT IV (03:36)
[2023-06-27] MEDS: HEPARIN 25,000 UNITS/D5W 500 ML 34 UNIT IV ×2 (03:37→09:22)
[2023-06-27] MEDS: FUROSEMIDE 40MG/4ML VIAL 40 MG IV ×2 (04:05→15:38)
[2023-06-27] MEDS: CEFEPIME HCL 2 GM in 0.9 % SODIUM CHLORIDE 100 ML IV ×3 (04:05→17:11)
--- NOTE | 2023-06-27 04:46 | PC.NURSE ---
@0130 THIS RN NOTIFIED ELECTROSTATIC PAINTER THAT PT IS DIAPHOREITC, CLAMMY, AND COLD; FSBS STABLE @ 176 ELECTROSTATIC PAINTER ORDERED STAT EKG EKG RESULTS GIVEN TO ELECTROSTATIC PAINTER; ELECTROSTATIC PAINTER NOTIFIED HERNAN OF RESULTS @ 0214 AND HERNAN GAVE A VERBAL ORDER TO HAVE PT TX TO [facility] [place] @ 0250 @0322 [facility] GAVE THIS RN NEW ORDERS D/T PTT RESULTS
[2023-06-27] MEDS: DEFINITY US ECHO CONTRAST 2ML INJ 2 MG IV (07:23)
--- NOTE | 2023-06-27 08:06 | HMH.PHAHEP ---
[facility] Pharmacy Heparin Dosing Demographic Data Admission date:: 06/26/23 Date: 06/27/23 Time: 08:06 Allergies Allergy/AdvReac Type Severity Reaction Status Date / Time No Known Allergies Allergy Verified 06/26/23 11:01 Height: 1.65 m Weight: 126.08 kg Indication Medication therapy:: Heparin Current Indications:: ACS-LOW DOSE PROTOCOL Current Active Problems (Updated 06/27/23 @ 13:47 by Marissa Mullins APRN) Heart failure with reduced ejection fraction (Acute) Dyspnea (Acute) STEMI (ST elevation myocardial infarction) (Acute) Pleural effusion on right (Acute) UTI (urinary tract infection) (Acute) Acute hypoxic respiratory failure (Acute) Hyperosmolar hyperglycemic state (HHS) (Acute) Pneumonia (Acute) ACS (acute coronary syndrome) (Acute) CVA?: No Bleeding problem?: No Kidney disease?: No [place]?: Yes Desired PTT range:: 50-75 seconds Comments:: BASELINE PTT: 27.7 SECONDS Labs Anticoagulation Lab Results:: 06/26/23 10:30 Hgb 15.3 Hct 50.0 H Plt Count 234 Monitoring Dose Monitor 1: Date: 06/26/23 Time: 11:42 PTT Result:: 27.7 SECONDS (BASELINE) Infusion Rate:: RECOMMEND INITIATING HEPARIN DRIP AT 1000 UNITS/HOUR = 20 ML/HOUR AND BOLUSED 4000 UNITS IV HEPARIN. Dose Monitor 2: Date: 06/26/23 Time: 17:45 PTT Result:: 30.6 SECONDS Infusion Rate:: CONSUELO RECOMMENDED INCREASING HEPARIN DRIP TO 1350 UNITS/HOUR = 27 ML/HOUR AND BOLUSING 4000 UNITS HEPARIN IV. Dose Monitor 3: Date: 06/27/23 Time: 01:00 PTT Result:: 39.3 SECONDS Infusion Rate:: CONSUELO RECOMMENDED INCREASING HEPARIN DRIP TO 1700 UNITS/HOUR = 34 ML/HOUR AND BOLUSING 4000 UNITS HEPARIN IV. Dose Monitor 4: Date: 06/27/23 Time: 09:30 PTT Result:: 57.0 SECONDS Infusion Rate:: RECOMMENDED CONTINUING CURRENT HEPARIN DRIP RATE OF 1700 UNITS/HOUR = 34 ML/HOUR. Core Measures Is INR > or = 2 at discharge?: No Most Recent Labs:: Laboratory Results - last 24 hr 06/26/23 10:30: WBC 16.9 H, RBC 5.04, Hgb 15.3, Hct 50.0 H, MCV 99.2 H, MCH 30.4, MCHC 30.7 L, RDW 13.5, Plt Count 234, MPV 9.8, Neut % (Auto) 81.8 H, Lymph % (Auto) 13.5, [place] % (Auto) 3.8, Eos % (Auto) 0.6, Baso % (Auto) 0.4, Neut # (Auto) 13.8 H, Lymph # (Auto) 2.3, [place] # (Auto) 0.6, Eos # (Auto) 0.1, Baso # (Auto) 0.1, Total Counted 100, Neutrophils % (Manual) 83 H, Band Neutrophils % 5.0, Lymphocytes % (Manual) 7 L, Monocytes % (Manual) 5, Platelet Estimate Normal, RBC Morphology Normal, PT 11.5, INR 1.07, APTT 27.7, Sodium 127 L, Potassium 5.7 H, Chloride 95 L, Carbon Dioxide 20 L, Anion Gap 17.7 H, BUN 24 H, Creatinine 1.00, Estimated Creat Clear 56, Estimated GFR 58 L, Est GFR ( Amer) 70, Glucose 747 H*, Calcium 9.7, Total Bilirubin 1.5 H, AST 225 H, ALT 62, Alkaline Phosphatase 96, Troponin I 53.10 H, Total Protein 6.7, Albumin 3.8, Globulin 2.9, Albumin/Globulin Ratio 1.3, Lipase 70, Acetone Level Small 06/26/23 10:37: VBG pH 7.33, VBG pCO2 32.6 L, VBG pO2 41.2 H, VBG HCO3 16.9 L, VBG Total CO2 17.9 L, VBG O2 Saturation 70.3 H, VBG Base Excess -9.0 L, VBG Lactic Acid 3.9 H 06/26/23 10:44: Hemoglobin A1c 12.8 H, Phosphorus 5.6 H, Magnesium 1.6, Ammonia < 9 L 06/26/23 11:09: Urine Color Yellow, Urine Appearance Clear, Urine pH 6.0, Ur Specific [place] <= 1.005, Urine Protein Negative, Urine Glucose (UA) 3+, Urine Ketones 1+, Urine Blood Trace-i, Urine Nitrate Positive, Urine Bilirubin Negative, Urine Urobilinogen 0.2, Ur Leukocyte Esterase Trace, Urine RBC None, Urine WBC 3-5, Ur Squamous Epith Cells Occasional, Urine Bacteria 2+ 06/26/23 13:17: POC Glucose 452 H* 06/26/23 13:30: Sodium 132 L, Potassium 4.3 D, Chloride 96 L, Carbon Dioxide 23, Anion Gap 17.3 H, BUN 23 H, Creatinine 0.80, Estimated Creat Clear 70, Estimated GFR 75, Est GFR ( Amer) 91 D, Glucose 357 H D, Calcium 9.8, Phosphorus 4.7 H, Magnesium 1.7, Troponin I 45.40 H, Procalcitonin 0.424 06/26/23 14:04: POC Glucose 367 H* 06/26/23 14:55: Lactate 4.4 H 06/26/23 15:02: POC Glucose 304 H* 06/26/23 16:05: POC Glucose 233 H 06/26/23 17:10: Sodium 134 L, Potassium 5.0, Chloride 102, Carbon Dioxide 24, Anion Gap 13.0, BUN 23 H, Creatinine 0.80, Estimated Creat Clear 70, Estimated GFR 75, Est GFR ( Amer) 91, Glucose 112 H D, Lactate 5.8 H, Calcium 9.7, Phosphorus 3.7, Magnesium 1.7, Troponin I 49.20 H 06/26/23 17:16: POC Glucose 148 H 06/26/23 17:56: POC Glucose 156 H 06/26/23 18:10: APTT 30.6 06/26/23 18:51: POC Glucose 125 H 06/26/23 20:05: POC Glucose 162 H 06/26/23 21:19: POC Glucose 171 H 06/26/23 21:30: Sodium 135 L, Potassium 5.4 H, Chloride 111 H, Carbon Dioxide 18 L, Anion Gap 11.4, BUN 23 H, Creatinine 0.70, Estimated Creat Clear 80, Estimated GFR 88, Est GFR ( Amer) 106, Glucose 162 H D, Calcium 9.3, Phosphorus 3.7, Magnesium 1.6 06/26/23 22:18: POC Glucose 164 H 06/27/23 00:42: POC Glucose 176 H 06/27/23 02:00: Troponin I 50.30 H 06/27/23 02:30: APTT 39.3 H If INR was < than 2.0 why was therapy stopped?: 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 Were Heparin and Warfarin started on the same day?: No
[2023-06-27] MEDS: humaLOG 100 UNITS/ML 3ML VIAL (SSI) SQ ×4 (08:16→21:35)
[2023-06-27] MEDS: VANCOMYCIN/WATER FOR INJ (PEG) 1.5 GM/300 ML PIGGYBACK IV (08:16)
--- NOTE | 2023-06-27 08:22 | PC.NURSE ---
THIS PT TOLD THIS RN THAT SHE IS HAVING CP 04/30; DAYSHIFT RN NOTIFIED BY THIS RN
--- NOTE | 2023-06-27 08:26 | EXP.HP ---
History of Present Illness *Admission Date: 06/26/23 *Reason for visit:: not feeling well, nausea vomiting [facility] Disclaimer: The information contained in this section may have been updated after the patient was seen, as this information can be updated by other users. Medical History (Updated 06/27/23 @ 03:16 by Boris Chinchilla APRN) History of anemia Depressed Arthritis Hypothyroid Diabetes Social History (Updated 06/26/23 @ 12:30 by Cortes Hussein MD) Smoking Status: Light tobacco smoker alcohol intake: never current occupational status: other Travel in the last 8 weeks: None Review of Systems Review of Systems Review of systems:: pertinent systems reviewed and negative unless documented below Meds Home Medications and Allergies Home Medications Medication Instructions Recorded Confirmed Type bupropion HCl 150 mg 24 hr tablet, 150 mg PO DAILY 06/26/23 06/26/23 History extended release citalopram 40 mg tablet 40 mg PO DAILY 06/26/23 06/26/23 History ibuprofen 600 mg tablet 600 mg PO Q6HP PRN Mild Pain 06/26/23 06/26/23 History (Scale Score 1-4) insulin glargine 100 unit/mL (3 7 unit SQ DAILY 06/26/23 06/26/23 History mL) subcutaneous pen (Lantus Solostar U-100 Insulin) lactulose 10 gram/15 mL oral 30 ml PO BIDP PRN Constipation 06/26/23 06/26/23 History solution levothyroxine 175 mcg tablet 175 mcg PO DAILY 06/26/23 06/26/23 History metformin 500 mg tablet 500 mg PO BIDWMEAL 06/26/23 06/26/23 History norethindrone acetate 5 mg tablet 5 mg PO DAILY 06/26/23 06/26/23 History simvastatin 20 mg tablet 20 mg PO HS 06/26/23 06/26/23 History New Prescriptions to Start Prescriptions: Allergies Allergy/AdvReac Type Severity Reaction Status Date / Time No Known Allergies Allergy Verified 06/26/23 11:01 Exam Data for Last 24 hours Vital signs and Labs for Last 24 Hours: Temp Pulse Resp BP Pulse Ox O2 Del Method O2 Flow Rate 99 F 118 H 16 95/69 L 95 Nasal Cannula 4 06/27/23 04:00 06/27/23 06:00 06/27/23 06:00 06/27/23 06:00 06/27/23 06:00 06/27/23 06:00 06/27/23 04:00 Laboratory Results - last 24 hr 06/26/23 10:30: WBC 16.9 H, RBC 5.04, Hgb 15.3, Hct 50.0 H, MCV 99.2 H, MCH 30.4, MCHC 30.7 L, RDW 13.5, Plt Count 234, MPV 9.8, Neut % (Auto) 81.8 H, Lymph % (Auto) 13.5, [place] % (Auto) 3.8, Eos % (Auto) 0.6, Baso % (Auto) 0.4, Neut # (Auto) 13.8 H, Lymph # (Auto) 2.3, [place] # (Auto) 0.6, Eos # (Auto) 0.1, Baso # (Auto) 0.1, Total Counted 100, Neutrophils % (Manual) 83 H, Band Neutrophils % 5.0, Lymphocytes % (Manual) 7 L, Monocytes % (Manual) 5, Platelet Estimate Normal, RBC Morphology Normal, PT 11.5, INR 1.07, APTT 27.7, Sodium 127 L, Potassium 5.7 H, Chloride 95 L, Carbon Dioxide 20 L, Anion Gap 17.7 H, BUN 24 H, Creatinine 1.00, Estimated Creat Clear 56, Estimated GFR 58 L, Est GFR ( Amer) 70, Glucose 747 H*, Calcium 9.7, Total Bilirubin 1.5 H, AST 225 H, ALT 62, Alkaline Phosphatase 96, Troponin I 53.10 H, Total Protein 6.7, Albumin 3.8, Globulin 2.9, Albumin/Globulin Ratio 1.3, Lipase 70, Acetone Level Small 06/26/23 10:37: VBG pH 7.33, VBG pCO2 32.6 L, VBG pO2 41.2 H, VBG HCO3 16.9 L, VBG Total CO2 17.9 L, VBG O2 Saturation 70.3 H, VBG Base Excess -9.0 L, VBG Lactic Acid 3.9 H 06/26/23 10:44: Hemoglobin A1c 12.8 H, Phosphorus 5.6 H, Magnesium 1.6, Ammonia < 9 L 06/26/23 11:09: Urine Color Yellow, Urine Appearance Clear, Urine pH 6.0, Ur Specific [place] <= 1.005, Urine Protein Negative, Urine Glucose (UA) 3+, Urine Ketones 1+, Urine Blood Trace-i, Urine Nitrate Positive, Urine Bilirubin Negative, Urine Urobilinogen 0.2, Ur Leukocyte Esterase Trace, Urine RBC None, Urine WBC 3-5, Ur Squamous Epith Cells Occasional, Urine Bacteria 2+ 06/26/23 13:17: POC Glucose 452 H* 06/26/23 13:30: Sodium 132 L, Potassium 4.3 D, Chloride 96 L, Carbon Dioxide 23, Anion Gap 17.3 H, BUN 23 H, Creatinine 0.80, Estimated Creat Clear 70, Estimated GFR 75, Est GFR ( Amer) 91 D, Glucose 357 H D, Calcium 9.8, Phosphorus 4.7 H, Magnesium 1.7, Troponin I 45.40 H, Procalcitonin 0.424 06/26/23 14:04: POC Glucose 367 H* 06/26/23 14:55: Lactate 4.4 H 06/26/23 15:02: POC Glucose 304 H* 06/26/23 16:05: POC Glucose 233 H 06/26/23 17:10: Sodium 134 L, Potassium 5.0, Chloride 102, Carbon Dioxide 24, Anion Gap 13.0, BUN 23 H, Creatinine 0.80, Estimated Creat Clear 70, Estimated GFR 75, Est GFR ( Amer) 91, Glucose 112 H D, Lactate 5.8 H, Calcium 9.7, Phosphorus 3.7, Magnesium 1.7, Troponin I 49.20 H 06/26/23 17:16: POC Glucose 148 H 06/26/23 17:56: POC Glucose 156 H 06/26/23 18:10: APTT 30.6 06/26/23 18:51: POC Glucose 125 H 06/26/23 20:05: POC Glucose 162 H 06/26/23 21:19: POC Glucose 171 H 06/26/23 21:30: Sodium 135 L, Potassium 5.4 H, Chloride 111 H, Carbon Dioxide 18 L, Anion Gap 11.4, BUN 23 H, Creatinine 0.70, Estimated Creat Clear 80, Estimated GFR 88, Est GFR ( Amer) 106, Glucose 162 H D, Calcium 9.3, Phosphorus 3.7, Magnesium 1.6 06/26/23 22:18: POC Glucose 164 H 06/27/23 00:42: POC Glucose 176 H 06/27/23 02:00: Troponin I 50.30 H 06/27/23 02:30: APTT 39.3 H I & O for Last 24 hours: Intake & Output 06/24/23 06/25/23 06/26/23 06/27/23 23:59 23:59 23:59 23:59 Intake Total 1050.131 / 1050.131 Output Total 0 / 0 1050 / 1050 Balance 1050.131 / 1050.131 -1050 / -1050 Weight 126.099 kg 126.08 kg Constitutional Comments: dry mucous membranes *Routine HEENT Exam Head: Present normocephalic Eye: Present EOMI and PERRL ENT: Present mucous membranes moist *Routine Neck Exam Neck: Present supple; Absent lymphadenopathy *Routine Respiratory Exam Respiratory: Present CTA bilaterally *Routine Cardiovascular Exam Cardiovascular: Present tachycardia *Routine Abdominal Exam Abdominal: Present soft and normoactive bowel sounds; Absent tenderness *Routine Rectal Exam Rectal:: deferred *Routine Genitalia Exam Genitalia:: deferred *Routine Extremities Exam Extremities: Absent cyanosis, clubbing or edema *Routine Skin Exam Skin: Present warm; Absent rash *Routine Neurological Exam Neurological: Present alert and oriented X3 Assessment and Plan *Assessment and plan (1) UTI (urinary tract infection): Status: Acute Qualifiers: Hematuria presence: without hematuria Urinary tract infection type: site unspecified Qualified Code(s): N39.0 - Urinary tract infection, site not specified Category: Medical Code(s): N39.0 - Urinary tract infection, site not specified (2) Acute hypoxic respiratory failure: Status: Acute Category: Medical Code(s): J96.01 - Acute respiratory failure with hypoxia (3) Hyperosmolar hyperglycemic state (HHS): Status: Acute Category: Medical Code(s): E11.00 - Type 2 diabetes mellitus with hyperosmolarity without nonketotic hyperglycemic-hyperosmolar coma (NKHHC) (4) Pneumonia: Status: Acute Category: Medical Code(s): J18.9 - Pneumonia, unspecified organism (5) ACS (acute coronary syndrome): Status: Acute Category: Medical Code(s): I24.9 - Acute ischemic heart disease, unspecified Plan Patient is a 53-year-old female who presents to the hospital due to complaints of shortness of breath dyspnea. Patient has past medical history of hypertension hyperlipidemia diabetes mellitus, CAD. According to patient she had chest pains on Tuesday which resolved however she started feeling short of breath after that. Patient mention she has not been compliant with diabetic medications. At time of my evaluation patient denies chest pain nausea vomiting diarrhea constipation dysuria fevers and chills. She endorses shortness of breath with exertion. On further evaluation patient was found to have been HHS and elevated troponin. 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
[2023-06-27 08:28] LABS: POC Glucose,Bedside 313 (70-110)
[2023-06-27] MEDS: MIDODRINE HCL 5 MG TABLET PO ×3 (09:23→21:35)
[2023-06-27] MEDS: LEVOTHYROXINE 175MCG (0.175MG) TAB 175 MCG PO (09:23)
--- NOTE | 2023-06-27 09:54 | P.CONS_ITS ---
History of Present Illness History of present illness: Ms. Denton is a 53-year-old female with no significant smoking history, no prior respiratory complaints, not using oxygen at baseline presented to the ER with worsening respiratory distress and chest discomfort and pulmonary was called for further evaluation and management. Patient is patient is a scheduled on resident, found to be hypoxic with O2 sats at 50% initially needing nonrebreather to get her sats to 90% and above. [facility] Disclaimer: The information contained in this section may have been updated after the patient was seen, as this information can be updated by other users. Medical History (Updated 06/27/23 @ 11:10 by Giulia Salas MD) Pleural effusion on right History of anemia Depressed Arthritis Hypothyroid Diabetes Social History (Updated 06/26/23 @ 12:30 by Cortes Hussein MD) Smoking Status: Light tobacco smoker alcohol intake: never current occupational status: other Travel in the last 8 weeks: None Review of Systems Constitutional Constitutional: Reports anorexia and Reports fatigue Eyes Eyes: Denies eye discharge, Denies dry eyes, Denies irritation and Denies itchy eyes ENT Ears, Nose, Mouth, and Throat: Denies epistaxis, Denies facial pain, Denies lip swelling and Denies throat swelling *Cardiovascular Cardiovascular: Reports dyspnea, Reports dyspnea on exertion and Reports orthopnea *Respiratory Respiratory: Denies change in phlegm color, Reports chest congestion, Reports cough, Reports dyspnea, Reports dyspnea on exertion, Denies excessive phlegm production, Denies hemoptysis, Denies pain on inspiration, Denies pain with cough and Denies wheezing *Gastrointestinal Gastrointestinal: Denies abdominal pain, Denies belching and Denies cramping *Musculoskeletal Musculoskeletal: Reports back pain, Reports myalgias and Reports other (No small joint swelling or Pain) Psychiatric Psychiatric: Denies homicidal ideation and Denies suicidal ideation Endocrine Endocrine: Reports fatigue and Denies heat intolerance Hematologic/Lymphatic Hematologic/Lymphatic: Denies easy bleeding and Denies lymphadenopathy Allergic/Immunologic Allergic/Immunologic: Denies itchy eyes, Denies lip swelling, Denies throat swelling and Denies wheezing Pulmonology Exam Inpatient Vital signs and Labs for Last 24 Hours: Temp Pulse Resp BP Pulse Ox O2 Del Method O2 Flow Rate 98.2 F 111 H 22 115/80 96 Nasal Cannula 4 06/27/23 08:47 06/27/23 09:30 06/27/23 09:30 06/27/23 09:30 06/27/23 08:00 06/27/23 09:44 06/27/23 09:44 Laboratory Results - last 24 hr 06/26/23 10:30: WBC 16.9 H, RBC 5.04, Hgb 15.3, Hct 50.0 H, MCV 99.2 H, MCH 30.4, MCHC 30.7 L, RDW 13.5, Plt Count 234, MPV 9.8, Neut % (Auto) 81.8 H, Lymph % (Auto) 13.5, [place] % (Auto) 3.8, Eos % (Auto) 0.6, Baso % (Auto) 0.4, Neut # (Auto) 13.8 H, Lymph # (Auto) 2.3, [place] # (Auto) 0.6, Eos # (Auto) 0.1, Baso # (Auto) 0.1, Total Counted 100, Neutrophils % (Manual) 83 H, Band Neutrophils % 5.0, Lymphocytes % (Manual) 7 L, Monocytes % (Manual) 5, Platelet Estimate Normal, RBC Morphology Normal, PT 11.5, INR 1.07, APTT 27.7, Sodium 127 L, P otassium 5.7 H, Chloride 95 L, Carbon Dioxide 20 L, Anion Gap 17.7 H, BUN 24 H, Creatinine 1.00, Estimated Creat Clear 56, Estimated GFR 58 L, Est GFR ( Amer) 70, Glucose 747 H*, Calcium 9.7, Total Bilirubin 1.5 H, AST 225 H, ALT 62, Alkaline Phosphatase 96, Troponin I 53.10 H, Total Protein 6.7, Albumin 3.8, Globulin 2.9, Albumin/Globulin Ratio 1.3, Lipase 70, Acetone Level Small 06/26/23 10:37: VBG pH 7.33, VBG pCO2 32.6 L, VBG pO2 41.2 H, VBG HCO3 16.9 L, V BG Total CO2 17.9 L, VBG O2 Saturation 70.3 H, VBG Base Excess -9.0 L, VBG Lactic Acid 3.9 H 06/26/23 10:44: Hemoglobin A1c 12.8 H, Phosphorus 5.6 H, Magnesium 1.6, Ammonia < 9 L 06/26/23 11:09: Urine Color Yellow, Urine Appearance Clear, Urine pH 6.0, Ur Specific [place] <= 1.005, Urine Protein Negative, Urine Glucose (UA) 3+, Urine Ketones 1+, Urine Blood Trace-i, Urine Nitrate Positive, Urine Bilirubin Negative, Urine Urobilinogen 0.2, Ur Leukocyte Esterase Trace, Urine RBC None, Urine WBC 3-5, Ur Squamous Epith Cells Occasional, Urine Bacteria 2+ 06/26/23 13:17: POC Glucose 452 H* 06/26/23 13:30: Sodium 132 L, Potassium 4.3 D, Chloride 96 L, Carbon Dioxide 23, Anion Gap 17.3 H, BUN 23 H, Creatinine 0.80, Estimated Creat Clear 70, Estimated GFR 75, Est GFR ( Amer) 91 D, Glucose 357 H D, Calcium 9.8, P hosphorus 4.7 H, Magnesium 1.7, Troponin I 45.40 H, Procalcitonin 0.424 06/26/23 14:04: POC Glucose 367 H* 06/26/23 14:55: Lactate 4.4 H 06/26/23 15:02: POC Glucose 304 H* 06/26/23 16:05: POC Glucose 233 H 06/26/23 17:10: Sodium 134 L, Potassium 5.0, Chloride 102, Carbon Dioxide 24, Anion Gap 13.0, BUN 23 H, Creatinine 0.80, Estimated Creat Clear 70, Estimated GFR 75, Est GFR ( Amer) 91, Glucose 112 H D, Lactate 5.8 H, Calcium 9.7, Phosphorus 3.7, Magnesium 1.7, Troponin I 49.20 H 06/26/23 17:16: POC Glucose 148 H 06/26/23 17:56: POC Glucose 156 H 06/26/23 18:10: APTT 30.6 06/26/23 18:51: POC Glucose 125 H 06/26/23 20:05: POC Glucose 162 H 06/26/23 21:19: POC Glucose 171 H 06/26/23 21:30: Sodium 135 L, Potassium 5.4 H, Chloride 111 H, Carbon Dioxide 18 L, Anion Gap 11.4, BUN 23 H, Creatinine 0.70, Estimated Creat Clear 80, Estimated GFR 88, Est GFR ( Amer) 106, Glucose 162 H D, Calcium 9.3, Phosphorus 3.7, Magnesium 1.6 06/26/23 22:18: POC Glucose 164 H 06/27/23 00:42: POC Glucose 176 H 06/27/23 02:00: Troponin I 50.30 H 06/27/23 02:30: APTT 39.3 H 06/27/23 08:10: POC Glucose 313 H* I & O for Labs for Last 24 Hours: Intake & Output 06/24/23 06/25/23 06/26/23 06/27/23 23:59 23:59 23:59 23:59 Intake Total 1050.131 / 3282.896 8455 / 1108 Output Total 0 / 0 1050 / 1050 Balance 1050.131 / 1050.131 58 / 58 Weight 278 lb 277 lb 15.341 oz Constitutional: Present moderate distress Head: Present normocephalic and atraumatic ENT: Present normal exam, normal oropharynx and mucous membranes moist Neck: Present normal inspection and full ROM Respiratory: Present respiratory distress, crackles, diminished air movement and able to speak in complete sentences; Absent prolonged expiratory phase, rhonchi or wheezes Cardiac: Present S1/S2, Tachycardia and radial pulses present GI: Present soft and distention; Absent tenderness or guarding Rectal (female): Present deferred (female): Present deferred Skin: Present intact; Absent cyanosis or jaundice Neuro: Present alert, awake and oriented x 3 Extremities: Present normal inspection; Absent clubbing or cyanosis Psychiatric: Present normal affect and cooperative Meds Home Medications and Allergies Home Medications Medication Instructions Recorded Confirmed Type bupropion HCl 150 mg 24 hr tablet, 150 mg PO DAILY 06/26/23 06/26/23 History extended release citalopram 40 mg tablet 40 mg PO DAILY 06/26/23 06/26/23 History ibuprofen 600 mg tablet 600 mg PO Q6HP PRN Mild Pain 06/26/23 06/26/23 History (Scale Score 1-4) insulin glargine 100 unit/mL (3 7 unit SQ DAILY 06/26/23 06/26/23 History mL) subcutaneous pen (Lantus Solostar U-100 Insulin) lactulose 10 gram/15 mL oral 30 ml PO BIDP PRN Constipation 06/26/23 06/26/23 History solution levothyroxine 175 mcg tablet 175 mcg PO DAILY 06/26/23 06/26/23 History metformin 500 mg tablet 500 mg PO BIDWMEAL 06/26/23 06/26/23 History norethindrone acetate 5 mg tablet 5 mg PO DAILY 06/26/23 06/26/23 History simvastatin 20 mg tablet 20 mg PO HS 06/26/23 06/26/23 History New Prescriptions to Start Prescriptions: Allergies Allergy/AdvReac Type Severity Reaction Status Date / Time No Known Allergies Allergy Verified 06/26/23 11:01 Results Laboratory Findings 06/26/23 10:30 06/27/23 09:15 PT/INR, D-dimer PT 11.5 seconds (10.1-12.5) 06/26/23 10:30 INR 1.07 (0.9-1.1) 06/26/23 10:30 Abnormal lab findings: Abnormal Labs 06/26/23 06/26/23 06/26/23 10:30 10:37 10:44 WBC 16.9 H Hct 50.0 H MCV 99.2 H MCHC 30.7 L Neut % (Auto) 81.8 H Neut # (Auto) 13.8 H Neutrophils % (Manual) 83 H Lymphocytes % (Manual) 7 L APTT VBG pCO2 32.6 L VBG pO2 41.2 H VBG HCO3 16.9 L VBG Total CO2 17.9 L VBG O2 Saturation 70.3 H VBG Base Excess -9.0 L VBG Lactic Acid 3.9 H Sodium 127 L Potassium 5.7 H Chloride 95 L Carbon Dioxide 20 L Anion Gap 17.7 H BUN 24 H Estimated GFR 58 L Glucose 747 H* POC Glucose Hemoglobin A1c 12.8 H Lactate Phosphorus 5.6 H Total Bilirubin 1.5 H AST 225 H Ammonia < 9 L Troponin I 53.10 H 06/26/23 06/26/23 06/26/23 13:17 13:30 14:04 WBC Hct MCV MCHC Neut % (Auto) Neut # (Auto) Neutrophils % (Manual) Lymphocytes % (Manual) APTT VBG pCO2 VBG pO2 VBG HCO3 VBG Total CO2 VBG O2 Saturation VBG Base Excess VBG Lactic Acid Sodium 132 L Potassium Chloride 96 L Carbon Dioxide Anion Gap 17.3 H BUN 23 H Estimated GFR Glucose 357 H D POC Glucose 452 H* 367 H* Hemoglobin A1c Lactate Phosphorus 4.7 H Total Bilirubin AST Ammonia Troponin I 45.40 H 06/26/23 06/26/23 06/26/23 14:55 15:02 16:05 WBC Hct MCV MCHC Neut % (Auto) Neut # (Auto) Neutrophils % (Manual) Lymphocytes % (Manual) APTT VBG pCO2 VBG pO2 VBG HCO3 VBG Total CO2 VBG O2 Saturation VBG Base Excess VBG Lactic Acid Sodium Potassium Chloride Carbon Dioxide Anion Gap BUN Estimated GFR Glucose POC Glucose 304 H* 233 H Hemoglobin A1c Lactate 4.4 H Phosphorus Total Bilirubin AST Ammonia Troponin I 06/26/23 06/26/23 06/26/23 17:10 17:16 17:56 WBC Hct MCV MCHC Neut % (Auto) Neut # (Auto) Neutrophils % (Manual) Lymphocytes % (Manual) APTT VBG pCO2 VBG pO2 VBG HCO3 VBG Total CO2 VBG O2 Saturation VBG Base Excess VBG Lactic Acid Sodium 134 L Potassium Chloride Carbon Dioxide Anion Gap BUN 23 H Estimated GFR Glucose 112 H D POC Glucose 148 H 156 H Hemoglobin A1c Lactate 5.8 H Phosphorus Total Bilirubin AST Ammonia Troponin I 49.20 H 06/26/23 06/26/23 06/26/23 18:51 20:05 21:19 WBC Hct MCV MCHC Neut % (Auto) Neut # (Auto) Neutrophils % (Manual) Lymphocytes % (Manual) APTT VBG pCO2 VBG pO2 VBG HCO3 VBG Total CO2 VBG O2 Saturation VBG Base Excess VBG Lactic Acid Sodium Potassium Chloride Carbon Dioxide Anion Gap BUN Estimated GFR Glucose POC Glucose 125 H 162 H 171 H Hemoglobin A1c Lactate Phosphorus Total Bilirubin AST Ammonia Troponin I 06/26/23 06/26/23 06/27/23 21:30 22:18 00:42 WBC Hct MCV MCHC Neut % (Auto) Neut # (Auto) Neutrophils % (Manual) Lymphocytes % (Manual) APTT VBG pCO2 VBG pO2 VBG HCO3 VBG Total CO2 VBG O2 Saturation VBG Base Excess VBG Lactic Acid Sodium 135 L Potassium 5.4 H Chloride 111 H Carbon Dioxide 18 L Anion Gap BUN 23 H Estimated GFR Glucose 162 H D POC Glucose 164 H 176 H Hemoglobin A1c Lactate Phosphorus Total Bilirubin AST Ammonia Troponin I 06/27/23 06/27/23 06/27/23 02:00 02:30 08:10 WBC Hct MCV MCHC Neut % (Auto) Neut # (Auto) Neutrophils % (Manual) Lymphocytes % (Manual) APTT 39.3 H VBG pCO2 VBG pO2 VBG HCO3 VBG Total CO2 VBG O2 Saturation VBG Base Excess VBG Lactic Acid Sodium Potassium Chloride Carbon Dioxide Anion Gap BUN Estimated GFR Glucose POC Glucose 313 H* Hemoglobin A1c Lactate Phosphorus Total Bilirubin AST Ammonia Troponin I 50.30 H Assessment and Plan *Assessment and plan (1) Acute hypoxic respiratory failure: Status: Acute Category: Medical Code(s): J96.01 - Acute respiratory failure with hypoxia (2) Pneumonia: Status: Acute Category: Medical Code(s): J18.9 - Pneumonia, unspecified organism (3) Pleural effusion on right: Status: Acute Category: Medical Code(s): J90 - Pleural effusion, not elsewhere classified Plan Ms. Denton is a 53-year-old female with no significant smoking history, no prior respiratory complaints, not using oxygen at baseline presented to the ER with worsening respiratory distress and chest discomfort and pulmonary was called for further evaluation and management. Patient is patient is a scheduled on resident, found to be hypoxic with O2 sats at 50% initially needing nonrebreather to get her sats to 90% and above. CTA upon admission reviewed, no evidence of pulmonary embolism, small right pleural effusion along with groundglass opacities. No dense consolidation/airspace disease appreciated. Afebrile afebrile. Neutrophilic leukocytosis upon admission. Tachycardia. VBG upon admission did not show any evidence of hypoxic/hypercarbic respiratory failure. Patient glucose was significantly elevated upon admission with no evidence of acidosis and she was initiated on HHS protocol. Patient was also initiated on heparin drip for NSTEMI. Cardiology following. Examination patient appeared to be in moderate respiratory distress. Bibasilar crackles on auscultation. No significant wheezing appreciated. Plan: Abx can be weaned to Ceftriaxone and Azithromycin from pulmonary stand point Duo Nrbs Q 6 PRN Continue NC oxygen supplementation to maintain O2 sat goal of 90 to 95% Follow with comprehensive respiratory viral PCR panel F/U MRSA PCR and sputum Gram stain culture sensitivities # Thank you for involving pulmonary in this patient care. Will continue to follow.
[2023-06-27 10:18] LABS: Anion Gap 14.7 mEq/L (5-15); Blood Urea Nitrogen 25 mg/dl (7-17); Calcium 8.3 mg/dl (8.4-10.2); Carbon Dioxide 20 mmol/L (22.0-30.0); Chloride 102 mmol/L (98-107); Creatinine Clearance Estimated 70 mL/min (50-200); Estimated Glomerular Filt Rate 75 ml/min (>60); GFR (African American) 91 ML/MIN (>60); Glucose 329 mg/dl (74-100); Magnesium 1.5 mg/dl (1.6-2.3); Phosphorous 4.3 mg/dl (2.5-4.5); Potassium 4.7 mmoL/L (3.5-5.1); Sodium 132 mmol/L (136-145)
[2023-06-27 10:31] LABS: Adenovirus,PCR Not Detected (NotDetected); Bordetella Pertussis Not Detected (NotDetected); Chlamydophila Pneumoniae, PCR Not Detected (NotDetected); Coronavirus 19, PCR Not Detected (NotDetected); Coronavirus 229E Not Detected (NotDetected); Coronavirus NL63 Not Detected (NotDetected); Coronavirus OC43 Not Detected (NotDetected); Coronovirus HKU1,PCR Not Detected (NotDetected); Human Metapneumovirus Not Detected (NotDetected); Influenza A, PCR Not Detected (NotDetected); Influenza AH1, 2009 Not Detected (NotDetected); Influenza AH1, PCR Not Detected (NotDetected); Influenza AH3,PCR Not Detected (NotDetected); Influenza B, PCR Not Detected (NotDetected); Mycoplasma Pneumoniae, PCR Not Detected (NotDetected); Parainfluenza 1, PCR Not Detected (NotDetected); Parainfluenza 2, PCR Not Detected (NotDetected); Parainfluenza 3, PCR Not Detected (NotDetected); Parainfluenza 4, PCR Not Detected (NotDetected); Respiratory Syncytial Virus Not Detected (NotDetected); Rhinovirus/Enterovirus Not Detected (NotDetected)
--- NOTE | 2023-06-27 10:31 | PC.NURSE ---
1030 Called and spoke with [facility] in pharmacy. pt PTT is 57.0. no change in heparin drip at this time. drip to remain at 1700units
--- NOTE | 2023-06-27 11:00 | EXP.CARD.CON ---
History of Present Illness History of Present Illness Consult date: 06/27/23 Requesting physician: Diana Carlson Consult reason: chest pain Chief complaint: shortness of breath History of present illness: This is a 53-year-old white female with past medical history of hypertension, hyperlipidemia and diabetes mellitus who presented to emergency department with complaints of shortness of breath. Patient reports she started having pain in between shouldeblades on Tuesday which eventually resolved. Patient states on Tuesday she started having shortness of breath which progressed throughout the weekend prompting her to go to the emergency department. Upon presentation to ER initial fingerstick read as high, other labs as follow: WBC 16.9, hemoglobin 15.3, sodium 127, potassium 5.7, creatinine 1, glucose 747, total bili 1.5 and AST 225. HHS protocol was initiated. Initial troponin was elevated at 53.1. Chest CTA obtained and was negative for PE with mild interstitial edema and RUL opacity concerning for pneumonia. Patient was admitted for HHS and late presentation stemi. Patient currently on Hep drip. Echo is pending. [facility] Disclaimer: The information contained in this section may have been updated after the patient was seen, as this information can be updated by other users. Medical History (Updated 06/27/23 @ 13:47 by Marisas Mullins APRN) Pleural effusion on right History of anemia Depressed Arthritis Hypothyroid Diabetes Social History (Updated 06/26/23 @ 12:30 by Cortes Hussein MD) Smoking Status: Light tobacco smoker alcohol intake: never current occupational status: other Travel in the last 8 weeks: None Review of Systems Review of Systems Review of systems:: pertinent systems reviewed and negative unless documented below *Cardiovascular Cardiovascular: Reports dyspnea *Respiratory Respiratory: Reports dyspnea Exam Data for Last 24 hours Vital signs and Labs for Last 24 Hours: Temp Pulse Resp BP Pulse Ox O2 Del Method O2 Flow Rate 98.2 F 114 H 26 H 93/67 L 94 L Nasal Cannula 4 06/27/23 08:47 06/27/23 10:00 06/27/23 10:00 06/27/23 10:00 06/27/23 09:30 06/27/23 09:44 06/27/23 09:44 Laboratory Results - last 24 hr 06/26/23 10:30: Total Counted 100, Neutrophils % (Manual) 83 H, Band Neutrophils % 5.0, Lymphocytes % (Manual) 7 L, Monocytes % (Manual) 5, Platelet Estimate Normal, RBC Morphology Normal, PT 11.5, INR 1.07, APTT 27.7, Glucose 747 H*, Troponin I 53.10 H, Lipase 70 06/26/23 10:44: Hemoglobin A1c 12.8 H, Phosphorus 5.6 H, Magnesium 1.6, Ammonia < 9 L 06/26/23 11:09: Urine Color Yellow, Urine Appearance Clear, Urine pH 6.0, Ur Specific [place] <= 1.005, Urine Protein Negative, Urine Glucose (UA) 3+, Urine Ketones 1+, Urine Blood Trace-i, Urine Nitrate Positive, Urine Bilirubin Negative, Urine Urobilinogen 0.2, Ur Leukocyte Esterase Trace, Urine RBC None, Urine WBC 3-5, Ur Squamous Epith Cells Occasional, Urine Bacteria 2+ 06/26/23 13:17: POC Glucose 452 H* 06/26/23 13:30: Sodium 132 L, Potassium 4.3 D, Chloride 96 L, Carbon Dioxide 23, Anion Gap 17.3 H, BUN 23 H, Creatinine 0.80, Estimated Creat Clear 70, Estimated GFR 75, Est GFR ( Amer) 91 D, Glucose 357 H D, Calcium 9.8, Phosphorus 4.7 H, Magnesium 1.7, Troponin I 45.40 H, Procalcitonin 0.424 06/26/23 14:04: POC Glucose 367 H* 06/26/23 14:55: Lactate 4.4 H 06/26/23 15:02: POC Glucose 304 H* 06/26/23 16:05: POC Glucose 233 H 06/26/23 17:10: Sodium 134 L, Potassium 5.0, Chloride 102, Carbon Dioxide 24, Anion Gap 13.0, BUN 23 H, Creatinine 0.80, Estimated Creat Clear 70, Estimated GFR 75, Est GFR ( Amer) 91, Glucose 112 H D, Lactate 5.8 H, Calcium 9.7, Phosphorus 3.7, Magnesium 1.7, Troponin I 49.20 H 06/26/23 17:16: POC Glucose 148 H 06/26/23 17:56: POC Glucose 156 H 06/26/23 18:10: APTT 30.6 06/26/23 18:51: POC Glucose 125 H 06/26/23 20:05: POC Glucose 162 H 06/26/23 21:19: POC Glucose 171 H 06/26/23 21:30: Sodium 135 L, Potassium 5.4 H, Chloride 111 H, Carbon Dioxide 18 L, Anion Gap 11.4, BUN 23 H, Creatinine 0.70, Estimated Creat Clear 80, Estimated GFR 88, Est GFR ( Amer) 106, Glucose 162 H D, Calcium 9.3, Phosphorus 3.7, Magnesium 1.6 06/26/23 22:18: POC Glucose 164 H 06/27/23 00:42: POC Glucose 176 H 06/27/23 02:00: Troponin I 50.30 H 06/27/23 02:30: APTT 39.3 H 06/27/23 08:10: POC Glucose 313 H* 06/27/23 09:15: APTT 57.0 H*, Sodium 132 L, Potassium 4.7, Chloride 102, Carbon Dioxide 20 L, Anion Gap 14.7, BUN 25 H, Creatinine 0.80, Estimated Creat Clear 70, Estimated GFR 75, Est GFR ( Amer) 91, Glucose 329 H D, Calcium 8.3 L, Phosphorus 4.3, Magnesium 1.5 L I & O for Last 24 hours: Intake & Output 06/24/23 06/25/23 06/26/23 06/27/23 23:59 23:59 23:59 23:59 Intake Total 1050.131 / 2297.577 5965 / 1108 Output Total 0 / 0 1050 / 1050 Balance 1050.131 / 1050.131 58 / 58 Weight 278 lb 277 lb 15.341 oz Constitutional Constitutional: no acute distress *Routine Respiratory Exam Respiratory: Present CTA bilaterally and symmetric chest movement *Routine Cardiovascular Exam Cardiovascular: Present RRR, Normal S1 and Normal S2; Absent murmur *Routine Abdominal Exam Abdominal: Present soft and normoactive bowel sounds; Absent tenderness *Routine Extremities Exam Extremities: Present full ROM and normal capillary refill; Absent edema *Routine Skin Exam Skin: Present intact, dry and warm Detailed Neck Exam: Thyroids Thyroid: Absent bruit Meds Home Medications and Allergies Home Medications Medication Instructions Recorded Confirmed Type bupropion HCl 150 mg 24 hr tablet, 150 mg PO DAILY 06/26/23 06/26/23 History extended release citalopram 40 mg tablet 40 mg PO DAILY 06/26/23 06/26/23 History ibuprofen 600 mg tablet 600 mg PO Q6HP PRN Mild Pain 06/26/23 06/26/23 History (Scale Score 1-4) insulin glargine 100 unit/mL (3 7 unit SQ DAILY 06/26/23 06/26/23 History mL) subcutaneous pen (Lantus Solostar U-100 Insulin) lactulose 10 gram/15 mL oral 30 ml PO BIDP PRN Constipation 06/26/23 06/26/23 History solution levothyroxine 175 mcg tablet 175 mcg PO DAILY 06/26/23 06/26/23 History metformin 500 mg tablet 500 mg PO BIDWMEAL 06/26/23 06/26/23 History norethindrone acetate 5 mg tablet 5 mg PO DAILY 06/26/23 06/26/23 History simvastatin 20 mg tablet 20 mg PO HS 06/26/23 06/26/23 History New Prescriptions to Start Prescriptions: Allergies Allergy/AdvReac Type Severity Reaction Status Date / Time No Known Allergies Allergy Verified 06/26/23 11:01 Assessment and Plan *Assessment and plan (1) STEMI (ST elevation myocardial infarction): Status: Acute Category: Medical Code(s): I21.3 - ST elevation (STEMI) myocardial infarction of unspecified site (2) Dyspnea: Status: Acute Category: Medical Code(s): R06.00 - Dyspnea, unspecified (3) Heart failure with reduced ejection fraction: Status: Acute Category: Medical Code(s): I50.20 - Unspecified systolic (congestive) heart failure Plan Late presentation STEMI -Troponin 53.10 -EKG reviewed, significant ST changes noted -On Hep drip -C pending. Discussed risks vs. benefits with patient, she is agreeable Acute HFrEF -Dyspnea -Preliminary Echo shows an estimated EF of 20-25% with wall motion abnormalities noted. Official read is pending. CV summary: Patient was taken to [facility] for late presentation stemi and received one JUAN JOSE to LAD. Patient also underwent a right sided heart cath, see report. Patient will be started on milrinone and bumex drips for acute heart failure.
[2023-06-27 11:11] LABS: Basophils % 0.4 % (0.1-2.0); Eosinophils # 0.1 K/mm3 (0.0-0.4); Eosinophils % 1.2 % (0.1-12.0); Hematocrit 37.3 % (37.0-47.0); Hemoglobin 12.4 g/dL (12.2-16.2); Lymphocytes # 2.3 K/mm3 (0.7-4.5); Lymphocytes % 18.2 % (10-50); Mean Corpuscular HGB Conc 33.4 g/dL (31.8-35.4); Mean Corpuscular Hemoglobin 30.9 pg (27.0-31.2); Mean Corpuscular Volume 92.6 fl (81-99); Mean Platelet Volume 9.3 fl (7.4-10.4); Monocytes # 0.4 K/mm3 (0.1-1.0); Monocytes % 3.4 % (1.7-9.3); Neutrophils # 9.5 K/mm3 (1.8-7.8); Neutrophils % 76.9 % (37.0-80.0); Platelet Count 172 K/mm3 (142-424); Red Blood Count 4.03 M/mm3 (4.20-5.40); Red Cell Distribution Width 13.9 % (11.5-17.5); White Blood Count 12.4 K/mm3 (4.8-10.8)
--- NOTE | 2023-06-27 11:39 | P.PN_ITS ---
Subjective *Date: 06/27/23 *Time: 11:39 Interval history: patient is seen at bedside, she denied active chest pain, SOB, N/V, she had Chest pains last night and troponin elevation on heparin drip Exam Data for Last 24 hours Vital signs and Labs for Last 24 Hours: Temp Pulse Resp BP Pulse Ox O2 Del Method O2 Flow Rate 98.2 F 110 H 24 103/70 L 92 L Nasal Cannula 4 06/27/23 08:47 06/27/23 11:00 06/27/23 11:00 06/27/23 11:00 06/27/23 11:00 06/27/23 11:05 06/27/23 11:05 Laboratory Results - last 24 hr 06/26/23 10:30: PT 11.5, INR 1.07, APTT 27.7 06/26/23 10:44: Hemoglobin A1c 12.8 H 06/26/23 11:09: Urine Color Yellow, Urine Appearance Clear, Urine pH 6.0, Ur Specific [place] <= 1.005, Urine Protein Negative, Urine Glucose (UA) 3+, Urine Ketones 1+, Urine Blood Trace-i, Urine Nitrate Positive, Urine Bilirubin Negative, Urine Urobilinogen 0.2, Ur Leukocyte Esterase Trace 06/26/23 13:17: POC Glucose 452 H* 06/26/23 13:30: Sodium 132 L, Potassium 4.3 D, Chloride 96 L, Carbon Dioxide 23, Anion Gap 17.3 H, BUN 23 H, Creatinine 0.80, Estimated Creat Clear 70, Estimated GFR 75, Est GFR ( Amer) 91 D, Glucose 357 H D, Calcium 9.8, Phosphorus 4.7 H, Magnesium 1.7, Troponin I 45.40 H, Procalcitonin 0.424 06/26/23 14:04: POC Glucose 367 H* 06/26/23 14:55: Lactate 4.4 H 06/26/23 15:02: POC Glucose 304 H* 06/26/23 16:05: POC Glucose 233 H 06/26/23 17:10: Sodium 134 L, Potassium 5.0, Chloride 102, Carbon Dioxide 24, Anion Gap 13.0, BUN 23 H, Creatinine 0.80, Estimated Creat Clear 70, Estimated GFR 75, Est GFR ( Amer) 91, Glucose 112 H D, Lactate 5.8 H, Calcium 9.7, Phosphorus 3.7, Magnesium 1.7, Troponin I 49.20 H 06/26/23 17:16: POC Glucose 148 H 06/26/23 17:56: POC Glucose 156 H 06/26/23 18:10: APTT 30.6 06/26/23 18:51: POC Glucose 125 H 06/26/23 20:05: POC Glucose 162 H 06/26/23 21:19: POC Glucose 171 H 06/26/23 21:30: Sodium 135 L, Potassium 5.4 H, Chloride 111 H, Carbon Dioxide 18 L, Anion Gap 11.4, BUN 23 H, Creatinine 0.70, Estimated Creat Clear 80, Estimated GFR 88, Est GFR ( Amer) 106, Glucose 162 H D, Calcium 9.3, Phosphorus 3.7, Magnesium 1.6 06/26/23 22:18: POC Glucose 164 H 06/27/23 00:42: POC Glucose 176 H 06/27/23 02:00: Troponin I 50.30 H 06/27/23 02:30: APTT 39.3 H 06/27/23 08:10: POC Glucose 313 H* 06/27/23 09:15: APTT 57.0 H*, Sodium 132 L, Potassium 4.7, Chloride 102, Carbon Dioxide 20 L, Anion Gap 14.7, BUN 25 H, Creatinine 0.80, Estimated Creat Clear 70, Estimated GFR 75, Est GFR ( Amer) 91, Glucose 329 H D, Calcium 8.3 L, Phosphorus 4.3, Magnesium 1.5 L 06/27/23 10:55: WBC 12.4 H D, RBC 4.03 L, Hgb 12.4, Hct 37.3, MCV 92.6, MCH 30.9, MCHC 33.4, RDW 13.9, Plt Count 172 D, MPV 9.3, Neut % (Auto) 76.9, Lymph % (Auto) 18.2, [place] % (Auto) 3.4, Eos % (Auto) 1.2, Baso % (Auto) 0.4, Neut # (Auto) 9.5 H, Lymph # (Auto) 2.3, [place] # (Auto) 0.4, Eos # (Auto) 0.1, Baso # (Auto) 0.0 I & O for Last 24 hours: Intake & Output 06/24/23 06/25/23 06/26/23 06/27/23 23:59 23:59 23:59 23:59 Intake Total 1050.131 / 7878.380 9061 / 1328 Output Total 0 / 0 1050 / 1050 Balance 1050.131 / 1050.131 278 / 278 Weight 126.099 kg 126.08 kg Constitutional Constitutional: no acute distress *Routine HEENT Exam Head: Present normocephalic Eye: Present EOMI and PERRL ENT: Present mucous membranes moist *Routine Neck Exam Neck: Present supple; Absent lymphadenopathy *Routine Respiratory Exam Respiratory: Present CTA bilaterally *Routine Cardiovascular Exam Cardiovascular: Present RRR *Routine Abdominal Exam Abdominal: Present soft and normoactive bowel sounds; Absent tenderness *Routine Extremities Exam Extremities: Absent cyanosis, clubbing or edema *Routine Skin Exam Skin: Present warm; Absent rash *Routine Neurological Exam Neurological: Present alert and oriented X3 Assessment and Plan *Assessment and plan (1) UTI (urinary tract infection): Status: Acute Qualifiers: Hematuria presence: without hematuria Urinary tract infection type: site unspecified Qualified Code(s): N39.0 - Urinary tract infection, site not specified Category: Medical Code(s): N39.0 - Urinary tract infection, site not specified (2) Acute hypoxic respiratory failure: Status: Acute Category: Medical Code(s): J96.01 - Acute respiratory failure with hypoxia (3) Hyperosmolar hyperglycemic state (HHS): Status: Acute Category: Medical Code(s): E11.00 - Type 2 diabetes mellitus with hyperosmolarity without nonketotic hyperglycemic-hyperosmolar coma (NKHHC) (4) Pneumonia: Status: Acute Category: Medical Code(s): J18.9 - Pneumonia, unspecified organism (5) ACS (acute coronary syndrome): Status: Acute Category: Medical Code(s): I24.9 - Acute ischemic heart disease, unspecified Plan Patient is a 53-year-old female who presents to the hospital due to complaints of shortness of breath dyspnea. Patient has past medical history of hypertension hyperlipidemia diabetes mellitus, CAD. According to patient she had chest pains on Tuesday which resolved however she started feeling short of breath after that. Patient mention she has not been compliant with diabetic medications. At time of my evaluation patient denies chest pain nausea vomiting diarrhea constipation dysuria fevers and chills. She endorses shortness of breath with exertion. On further evaluation patient was found to have been HHS and elevated troponin. 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 results Lactic acidosis Monitor Acute hypoxic respiratory failure satting less than 90% on room air - improving Right upper lobe opacity concerning for pneumonia Interstitial edema Leukocytosis, hypotension, lactic acidosis suspect severe sepsis present on admission - improved UA suggestive of UTI Started vancomycin, cefepime, wean to azithromycin and rocephin Check blood cultures, urine culture - pending Check PCT - pending Wean oxygen as tolerated, currently on 2 L nasal cannula Consult pulmonary DVT prophylaxis-heparin plan for cardiac cath today, wean down o2 needs, f/u on echo, cosnult PT/OT
[2023-06-27 11:50] LABS: POC Glucose,Bedside 328 (70-110)
--- NOTE | 2023-06-27 11:51 | CA_ITS ---
APPROVED REPORT EXAM: Comprehensive 2D, Doppler, and color-flow Echocardiogram Suction Plate Carrier Cleaner: Char Peterson CRT Ht: 5 ft 4 in Wt: 278lbs BSA: 2.25 BP: 95/69 mmHg Indications: Chest Pain, Shortness of Breath, Diabetes, Hyperlipidemia, Hypertension/HDD M-Mode Dimensions RVDd 2.22 cm (0.9-2.6) LA Diam 2.26 cm (1.9-4.0) LVDd 6.59 cm (3.5-5.7) LVDs 5.20 cm (3.5-5.7) IVSd 1.04 cm (0.6-1.1) PWd 0.84 cm (0.6-1.1) EF (Teich) 41.90% FS 21.10% EDV (Teich) 222.80 mL TAPSE 2.00 (<1.7) ESV (Teich) 129.50 mL LV Diastology E Decel Time 90 (160-240 msec) E/A Ratio 2.19 MED A' 7.50 cm/s LAT A' 8.20 cm/s Aortic Valve AI PHT 304.00 ms AO Peak GR. 5.00 mmHg Mitral Valve MV E Max Vivek. 79.0 (40-130 cm/s) MV A Velocity 36.0 (40-130 cm/s) E/A Ratio 2.19 MV PHT 26.0 ms Pulmonary Valve PV Peak Velocity 113.0 (50-150 cm/s) Tricuspid Valve TR P. Velocity 126.00 cm/s RAP Estimate 10.00 mmHg RVSP 16.30 mmHg Left Ventricle The left ventricle is normal size. Left ventricular systolic function is severely decreased. There is increased LV wall thickness. There is severe global hypokinesis present. The septal, anteroseptal, and inferoseptal LV acosta are akinetic. Grade 3 diastolic dysfunction. No left ventricle thrombus noted on this study. LVEF is 25%. Right Ventricle The right ventricle is normal size. The right ventricular systolic function is normal. Atria Left atrium is mildly dilated. The right atrium size is normal. There is no Doppler evidence of interatrial shunt. Aortic Valve The aortic valve opens well. There is no aortic valvular stenosis. Trace aortic regurgitation. Mitral Valve The mitral valve is normal in structure. No evidence of mitral valve stenosis. Trace mitral regurgitation. Tricuspid Valve The tricuspid valve leaflets are thin and pliable. There is insufficient TR jet to estimate RVSP. Pulmonic Valve The pulmonary valve is normal in structure. Trace pulmonic regurgitation. Great Vessels The aortic root is normal in size. The ascending aorta is normal in size. IVC is normal in size and collapses >50% with inspiration. Pericardium There is no pericardial effusion. Other Information Study Quality: Technically Difficult Conclusion Technically difficult study due to poor accoustic windows. Severely reduced LV systolic function (LVEF 25%). The septal, anteroseptal, and inferoseptal LV acosta are akinetic. Mild LA dilation. No significant valvular stenosis or regurgitation. Electronically signed by : Demetria Dinero MD 06/28/2023 21:40:12
--- NOTE | 2023-06-27 11:54 | HMH.PTEV ---
Physical Therapy Evaluation Rehab PT IP Evaluation Start: 06/27/23 10:09 Freq: ONCE Status: Active Protocol: Document 06/27/23 11:32 TESSAWALTER (Rec: 06/27/23 11:53 TESSAWALTER [id number]) Subjective/History History History Pt is a 53 y/o female who presented to [facility] on 06/26/23 with complaint of dyspnea. Per history & physical note, according to the patient she had chest pains on Tuesday which resolved however she started feeling short of breath after that. Patient mentioned she has not been compliant with diabetic medications. At time of my evaluation patient denies chest pain nausea vomiting diarrhea constipation dysuria fevers and chills. She endorses shortness of breath with exertion. On further evaluation patient was found to have been HHS and elevated troponin. Medical History: History of anemia, Depressed, Arthritis, Hypothyroid, Diabetes Subjective Subjective Pt reports she feels short of breath, deniess nausea or dizziness. Pt required rest breaks to provide subjective history due to dyspnea. Pt reports she resides at [facility] and is independent with all ADLs and ambulation. Denies use of an AD or recent falls. Pt denies use of supplemental oxygen at baseline, currently on 4L NC. Pt's oxygen saturation and HR fluctuating througout the evaluation, nursing stated pt was getting a heart cath today , therefore ambulation assessment held at this time. Will assess at next appropriate time. New diagnosis of cancer in past 12 No months? Rehab PT IP Eval Objective Appearance Patient Behavior Appropriate,Cooperative Patient Orientation Place,Name,Birthday Difficulty following instructions none Speech Pattern Clear,Appropriate Balance Ability to Arise Able, uses arms to help Sitting Balance Steady, safe Standing Balance Steady, wide stance Dynamic Sitting Balance Ability Good Dynamic Standing Balance Ability Good Transfers Bed Transfer Ability Supervision/Stand by Sit to Stand Bed Transfer Ability Contact Guard/Hand Hold Rehab PT IP prob,goals,plan Problems Date of Evaluation: 06/27/23 PT IP Problems Transfers,Gait,Balance,Self care,Safety Rehab Potential Rehab Potential Good Equipment Needs Assistive Devices Rolling / Wheeled Walker Plan PT Intervention Plan Transfers,Gait,Balance,Self care,Safety,Therapeutic Exercise PT Plan Frequency BID Duration LOS Discharge Goals Bed Transfer Ability Independent Sit to Stand Chair Transfer Ability Supervision/Stand by Ambulation Assistive Device None Ambulation Distance (feet) 30 Discharge Plan PT Discharge Plan Pt will benefit from skilled PT while at [facility] to improve overall strength, endurance and mobility. Pt is currently most appropriate to discharge back to [facility] with HHPT to address muscular strength and endurance once deemed medically stable by MD. PT to assess ambulation ability s/p [facility] cath at next available/ appropriate time and determine if there are any further needs such as DME. Eval Complexity Eval Charge Codes 79092 - Moderate Complexity PHYSICIAN CERTIFICATION: I certify the specified therapy services for Bernice Denton (Dottie) are required, authorized, and reviewed every 30 days.
--- NOTE | 2023-06-27 12:01 | HMH.OTEV ---
OT Inpatient Evaluation Rehab OT IP Evaluation Start: 06/27/23 10:09 Freq: ONCE Status: Active Protocol: Document 06/27/23 11:53 GALEMERIDEN (Rec: 06/27/23 12:01 [facility] [id number]) Rehab OT IP Assessment Subjective History Pt oriented x 2 on arrival. Pt agreeable to engage in therapy evaluation. Pt admitted on 06/26/23 due to DKA, PNA, and ACS. History and Physical: Patient is a 53-year-old female who presents to the hospital due to complaints of shortness of breath dyspnea. Patient has past medical history of hypertension hyperlipidemia diabetes mellitus, CAD. According to patient she had chest pains on Tuesday which resolved however she started feeling short of breath after that. Patient mention she has not been compliant with diabetic medications. At time of my evaluation patient denies chest pain nausea vomiting diarrhea constipation dysuria fevers and chills. She endorses shortness of breath with exertion. On further evaluation patient was found to have been HHS and elevated troponin. Subjective I still just can't breath, but they said my lungs are good. Pt resting in bed. Pt reports prior to being in the hosptial, she lived at [facility]. Pt claims normally she is independent with functional transfers and ADL independence. She normally does not require any type of AE during functional transfers . Pt is normally not on o2, but is currently on 4L. Pt was dependent upon staff for most IADLs, but she was able to clean her room . Objective Patient Orientation Person,Birthday Right Upper Extremity Gross ROM WFL Left Upper Extremity Gross ROM WFL Bed Mobility bed mobility-scooting,bed mobility - supine/sit Assist Level Supervision/Stand by Transfer Training Sit/Stand Transfer Assist Level Contact Guard/Hand Hold Rehab OT IP prob,goals,plan Problems Date of Evaluation: 06/27/23 OT IP Problems Bed Mobility,Transfers,Balance ,Self care,Safety Rehab Potential Rehab Potential Good Equipment Needs Assistive Devices Rolling / Wheeled Walker Plan OT intervention Plan Bed Mobility,Transfers,Balance ,Self care,Safety,Therapeutic Exercise OT Plan Frequency Daily Duration LOS Discharge Goals Bed Mobility Ability Standby Assistance Sit to Stand Chair Transfer Ability Contact Guard/Hand Hold Chair Transfer Ability Contact Guard/Hand Hold Chair Transfer Technique Sit to/from Ambulatory Chair Transfer Assistive Devices Rolling Walker Feeding Ability Assist with Tray Set Up Lower Body Dressing Ability Contact Guard Upper Body Dressing Ability Standby Assistance Bathing Ability Contact Guard Performing Toilet Hygiene Ability Standby Assistance Overall Commode/Toilet Transfer Ability Standby Assistance Commode/Toilet Transfer Technique Sit to/from Ambulatory Commode/Toilet Transfer Assistive Grab Bars Devices Oral Care Assist Standby Assistance Decrease in Endurance Yes Discharge Plan OT Discharge Plan Pt will benefit from skilled OT while at [facility] to improve overall strength, endurance, functional transfers, and ADL independence. Pt is [facility] to address deficits once deemed medically stable by MD. OT to assess functional transfer ability s/p hearth cath at next available/ appropriate time and determine if there are any further needs such as DME. Eval Complexity Eval Charge Codes 39362 - Moderate Complexity PHYSICIAN CERTIFICATION: I certify the specified therapy services for Bernice KayliePayton) Bertin are required, authorized, and reviewed every 30 days.
--- NOTE | 2023-06-27 12:28 | IR_ITS ---
APPROVED REPORT Patient Location: Inpatient Data Technical Lead: RAMU Nina RT (R) PROCEDURES Right heart catheterization Selective coronary angiogram Drug-eluting stent deployment to the ostial proximal mid left anterior descending artery Intravascular ultrasound to the LAD INDICATION Delayed presentation to an acute anterior ST elevation myocardial infarction, Coronary artery disease Informed consent was obtained prior to the procedure. COMPLICATIONS NONE Estimated Blood Loss: LESS THAN 10 ML TECHNIQUE One percent lidocaine used to anesthetize the right anterior aspect of the wrist. The right radial artery was accessed via the Seldinger technique. A 6 Ghanaian sheath was placed in the right radial artery. 2.5 mg of Verapamil, 800 mcg of nitroglycerin, 1mg Lidocaine and 5000 U Heparin were given through the arterial sheath. The papa catheter was also used to perform selective coronary angiogram. At the end of the diagnostic angiogram therapeutic heparin was administered giving a therapeutic ACT and the guide catheter was placed in the left main artery followed by Choice PT extra-support wire pushing through the occluded LAD. A 2.5 x 12 mm noncompliant balloon was deployed in the proximal and mid LAD which restored flow. A 3 mm x 38 mm Michael frontier stent was placed in the ostial proximal portion of the LAD and deployed at 20 patrick. An additional 2.5 x 12 mm [place] frontier stent was deployed distal to the for stent yet still overlapping and deployed at 20 patrick. 40 mcg of intracoronary nitroglycerin was administered. Intravascular ultrasound probe was advanced which demonstrated there was good mid to distal transitioning and apposition of the stent however the proximal portion was under deployed. A 4 mm x 8 mm noncompliant balloon was placed in the ostial proximal segment deployed at 20 patrick to post dilate. An additional 3.25 x 15 mm noncompliant balloon was deployed at 24 patrick in the proximal to midportion to further dilate the stent and give better stent expansion. At the end of the procedure 1% lidocaine was used anesthetize the right anterior aspect of the neck the right internal jugular vein was accessed via the center technique and a 7 Ghanaian sheath is placed in the right internal jugular vein. Right heart catheterization was performed. At the end the procedure the apparatus was removed the sheath was removed and hemostasis was achieved using manual pressure and the right IJ and the right radial sheath was removed with good hemostasis being achieved via TR banding patient was transferred to the postoperative in stable addition ANGIOGRAPHIC RESULTS The left main artery Normal The left anterior descending artery Initially ostially thrombosed. Following revascularization there was wide patency of the ostial proximal mid segment accompanied by ALVINA II flow distally. The circumflex artery Nondominant large normal. M moderate sized ramus intermedius originates off the distal left main artery and is patent The right coronary artery Dominant normal The ALMAZAN ventriculogram reveals Was not performed The left ventricular end-diastolic pressure Not measured Right atrial pressure 20 mmHg Pulmonary pressure 55/45 mmHg Pulmonary artery occlusion pressure 40 mmHg Right atrial saturation 33% Pulmonary artery saturation 31% Aortic saturation 86% Hemoglobin 15.3 Cardiac output 2.6 L/min Cardiac index 1.1 IMPRESSION Late presentation to the hospital with an acute anterior ST elevation myocardial infarction Cardiogenic shock Successful stenting of the ostial proximal mid LAD 1% occlusion reduced to 0% with 1 drug-eluting stent initially with ALVINA 0 flow accompanied by ALVINA II flow at the end of stenting IVUS guided percutaneous revascularization Elevated pulmonary pressures consistent with cardiogenic shock PLAN 1. Effient 10 mg daily plus aspirin 81 mg daily 2. Supportive care 3. Diuresis 4. Recommend transferring the patient to [facility] for possible mechanical support should patient's symptoms and numbers continue to deteriorate 5. Start Entresto once hemodynamically stable 6. Tight glycemic control 7. LDL less than 55 to proceed with high intensity statin Electronically signed by : Monroe Lara MD 06/27/2023 15:40:08
[2023-06-27] MEDS: SODIUM CHLORIDE 3% 15ML NEB 3 ML IH (13:08)
--- NOTE | 2023-06-27 14:13 | PC.NURSE ---
pt off unit with Pavan from laboratory tech [id number]
[2023-06-27] MEDS: VERAPAMIL 2.5MG/ML 2ML VIAL 2.5 MG IV (14:37)
[2023-06-27] MEDS: LIDOCAINE 1% 10ML MDV 20 ML IJ (14:37)
[2023-06-27] MEDS: NITROGLYCERIN 800MCG/8ML SYR (CATH LAB) 800 MCG IA (14:37)
[2023-06-27] MEDS: diphenhydrAMINE 50MG/ML VIAL 50 MG IV (14:37)
[2023-06-27] MEDS: HEPARIN 1,000 UNITS/ML 10ML VIAL (CATH LAB) 10000 UNIT IV (14:37)
[2023-06-27] MEDS: 0.9 % SODIUM CHLORIDE 500 ML 25 ML IV (14:38)
[2023-06-27] MEDS: HEPARIN 1,000 UNITS/500ML NS (CATH LAB) 3000 UNIT IV (14:38)
[2023-06-27] MEDS: MIDAZOLAM HCL 1MG/1ML 5ML VIAL 1 MG IV (14:39)
[2023-06-27] MEDS: FENTANYL 100MCG/2ML VIAL 50 MCG IV (14:39)
[2023-06-27] MEDS: PRASUGREL 10MG TAB 60 MG PO (15:43)
[2023-06-27] MEDS: IOPAMIDOL-370 (76%);100ML BOTTLE 130 ML IV (16:00)
[2023-06-27 16:02] LABS: CATHL Activated Clotting Time 306 SEC (74-125); CATHL Arterial O2 SAT 32 % (90-100); CATHL Venous O2 SAT 33 % (75-80)
[2023-06-27] MEDS: BUMETANIDE 10 MG in 0.9 % SODIUM CHLORIDE 60 ML IV (17:11)
[2023-06-27] MEDS: MILRINONE LACTATE 20 MG in 0.9 % SODIUM CHLORIDE 80 ML 4.73000000000000043 MG IV (17:11)
[2023-06-27 17:23] LABS: POC Glucose,Bedside 288 (70-110)
[2023-06-27] MEDS: PRAVASTATIN 40MG TAB 40 MG PO (21:35)
[2023-06-27] MEDS: VANCOMYCIN HCL 2,000 MG in 0.9 % SODIUM CHLORIDE 250 ML 125 MG IV (21:35)
[2023-06-27 23:53] LABS: POC Glucose,Bedside 368 (70-110)
[2023-06-28] VITALS (24 sets, daily range): BP systolic 99–149; BP diastolic 38–80; PULSE 104–120; RESP 18–29; TEMP 36.4–37.3; O2SAT 92–109; BMI 44.5
[2023-06-28] MEDS: CEFEPIME HCL 2 GM in 0.9 % SODIUM CHLORIDE 100 ML IV ×3 (01:11→16:08)
[2023-06-28] MEDS: BUMETANIDE 10 MG in 0.9 % SODIUM CHLORIDE 60 ML IV ×3 (01:11→22:03)
--- NOTE | 2023-06-28 03:23 | PC.NURSE ---
[facility] called for update on pt status. Currently no beds available at this time.
[2023-06-28] MEDS: humaLOG 100 UNITS/ML 3ML VIAL (SSI) SQ ×4 (06:19→20:41)
[2023-06-28] MEDS: LEVOTHYROXINE 175MCG (0.175MG) TAB 175 MCG PO (06:19)
[2023-06-28 06:22] LABS: POC Glucose,Bedside 340 (70-110)
[2023-06-28 06:43] LABS: Basophils # 0.1 K/mm3 (0-0.2); Basophils % 0.4 % (0.1-2.0); Eosinophils % 0.2 % (0.1-12.0); Hematocrit 38.9 % (37.0-47.0); Hemoglobin 12.5 g/dL (12.2-16.2); Lymphocytes # 1.7 K/mm3 (0.7-4.5); Lymphocytes % 16.5 % (10-50); Mean Corpuscular HGB Conc 32.1 g/dL (31.8-35.4); Mean Corpuscular Hemoglobin 30.4 pg (27.0-31.2); Mean Corpuscular Volume 94.9 fl (81-99); Mean Platelet Volume 8.7 fl (7.4-10.4); Monocytes # 0.5 K/mm3 (0.1-1.0); Monocytes % 4.7 % (1.7-9.3); Neutrophils % 78.1 % (37.0-80.0); Platelet Count 187 K/mm3 (142-424); Red Cell Distribution Width 13.8 % (11.5-17.5); White Blood Count 10.3 K/mm3 (4.8-10.8)
[2023-06-28 06:55] LABS: Anion Gap 11.1 mEq/L (5-15); Blood Urea Nitrogen 24 mg/dl (7-17); Calcium 7.9 mg/dl (8.4-10.2); Carbon Dioxide 26 mmol/L (22.0-30.0); Chloride 101 mmol/L (98-107); Creatinine Clearance Estimated 56 mL/min (50-200); Estimated Glomerular Filt Rate 58 ml/min (>60); GFR (African American) 70 ML/MIN (>60); Glucose 337 mg/dl (74-100); Potassium 3.1 mmoL/L (3.5-5.1); Sodium 135 mmol/L (136-145)
[2023-06-28] MEDS: CITALOPRAM 40MG TABLET 40 MG PO (07:47)
[2023-06-28] MEDS: MIDODRINE HCL 5 MG TABLET PO (07:47)
[2023-06-28] MEDS: buPROPion HCl SR 150MG TAB 150 MG PO (07:47)
[2023-06-28] MEDS: PRASUGREL 10MG TAB 10 MG PO (07:48)
[2023-06-28] MEDS: ASPIRIN EC 81MG TABLET 81 MG PO (07:48)
--- NOTE | 2023-06-28 08:01 | P.PN_ITS ---
Subjective *Date: 06/28/23 *Time: 16:36 Interval history: Patient states she is feeling some better today. Really wants to get home to her cat. Weaned to room air during morning rounds. No nausea or vomiting. Tolerating p.o. intake. Getting up to the bathroom with minimal assistance. Afebrile and hemodynamically stable. Medical Exam Vital signs and Labs for Last 24 Hours: Vital Signs Temp Pulse Pulse Resp BP BP Pulse Ox 06/28/23 06:59 06/28/23 06:00 115 H 28 H 113/74 95 06/28/23 05:00 06/28/23 05:00 114 H 26 H 113/74 95 06/28/23 04:00 06/28/23 04:00 99 F 117 H 26 H 113/77 96 06/28/23 03:00 06/28/23 03:00 116 H 28 H 116/68 95 06/28/23 02:00 113 H 26 H 101/60 L 95 06/28/23 01:00 115 H 29 H 114/67 95 06/28/23 01:00 06/28/23 00:00 114 H 06/28/23 00:00 06/28/23 00:00 98.7 F 113 H 28 H 110/63 95 06/27/23 23:00 117 H 29 H 113/69 94 L 06/27/23 23:00 117 H 29 H 113/69 94 L 06/27/23 23:00 06/27/23 22:00 112 H 31 H 110/68 98 06/27/23 22:00 112 H 31 H 110/68 98 06/27/23 21:00 122 H 31 H 110/70 95 06/27/23 21:00 06/27/23 21:00 122 H 31 H 110/70 95 06/27/23 20:00 112 H 30 H 109/52 L 100 06/27/23 20:00 142 H 06/27/23 20:00 06/27/23 20:00 98.8 F 132 H 30 H 109/52 L 100 06/27/23 19:00 125 H 20 109/62 L 95 06/27/23 18:57 06/27/23 18:30 120 H 18 109/75 L 97 06/27/23 18:00 118 H 20 115/77 100 06/27/23 17:30 120 H 18 116/84 100 06/27/23 17:00 115 H 18 114/85 100 06/27/23 17:00 06/27/23 16:45 119 H 20 114/77 90 L 06/27/23 16:30 122 H 18 118/82 94 L 06/27/23 16:15 125 H 91 L 06/27/23 16:10 115 H 20 123/79 91 L 06/27/23 16:00 110 H 06/27/23 15:55 98 F 116 H 18 136/70 95 06/27/23 15:50 98 F 112 H 16 139/72 96 06/27/23 15:48 98 F 114 H 16 125/70 88 L 06/27/23 15:48 98 F 114 H 114 H 16 125/70 4 L 06/27/23 15:45 98 F 114 H 123/74 88 L 06/27/23 14:00 107 H 20 103/54 L 99 06/27/23 13:51 06/27/23 13:08 121 H 18 06/27/23 13:00 114 H 20 96/67 L 98 06/27/23 12:00 60 06/27/23 12:00 63 97 06/27/23 12:00 63 22 96/67 L 93 L 06/27/23 11:56 97.9 F 06/27/23 11:05 06/27/23 11:00 110 H 24 103/70 L 92 L 06/27/23 10:00 114 H 26 H 93/67 L 06/27/23 09:44 06/27/23 09:30 111 H 94 L 06/27/23 09:30 111 H 22 115/80 06/27/23 08:47 98.2 F O2 Del Method O2 Flow Rate 06/28/23 06:59 Nasal Cannula 06/28/23 06:00 Nasal Cannula 4 06/28/23 05:00 Nasal Cannula 06/28/23 05:00 Nasal Cannula 4 06/28/23 04:00 Nasal Cannula 4 06/28/23 04:00 Nasal Cannula 4 06/28/23 03:00 Nasal Cannula 06/28/23 03:00 Nasal Cannula 4 06/28/23 02:00 Nasal Cannula 4 06/28/23 01:00 Nasal Cannula 4 06/28/23 01:00 Nasal Cannula 06/28/23 00:00 06/28/23 00:00 Nasal Cannula 4 06/28/23 00:00 Nasal Cannula 06/27/23 23:00 Nasal Cannula 4 06/27/23 23:00 Nasal Cannula 4 06/27/23 23:00 Nasal Cannula 06/27/23 22:00 Nasal Cannula 4 06/27/23 22:00 Nasal Cannula 4 06/27/23 21:00 Nasal Cannula 2 06/27/23 21:00 Nasal Cannula 2 06/27/23 21:00 Nasal Cannula 2 06/27/23 20:00 Nasal Cannula 2 06/27/23 20:00 06/27/23 20:00 Nasal Cannula 2 06/27/23 20:00 Nasal Cannula 2 06/27/23 19:00 Nasal Cannula 2 06/27/23 18:57 Nasal Cannula 2 06/27/23 18:30 Nasal Cannula 2 06/27/23 18:00 Nasal Cannula 2 06/27/23 17:30 Nasal Cannula 2 06/27/23 17:00 Nasal Cannula 2 06/27/23 17:00 Nasal Cannula 2 06/27/23 16:45 Room Air 06/27/23 16:30 Room Air 06/27/23 16:15 Room Air 06/27/23 16:10 Room Air 06/27/23 16:00 06/27/23 15:55 Nasal Cannula 4 06/27/23 15:50 Nasal Cannula 4 06/27/23 15:48 Nasal Cannula 4 06/27/23 15:48 Nasal Cannula 88 06/27/23 15:45 Nasal Cannula 4 06/27/23 14:00 Nasal Cannula 4 06/27/23 13:51 Nasal Cannula 4 06/27/23 13:08 06/27/23 13:00 Nasal Cannula 4 06/27/23 12:00 06/27/23 12:00 Nasal Cannula 4 06/27/23 12:00 Nasal Cannula 4 06/27/23 11:56 06/27/23 11:05 Nasal Cannula 4 06/27/23 11:00 Nasal Cannula 2 06/27/23 10:00 06/27/23 09:44 Nasal Cannula 4 06/27/23 09:30 Nasal Cannula 4 06/27/23 09:30 06/27/23 08:47 Intake and Output 06/27/23 06/28/23 06/28/23 23:59 07:59 15:59 Intake Total 595.676 / 2021.676 580 / 580 Output Total 3816 / 5783 2033 Balance -3220.324 / -3761.324 -1454 / -1454 Intake: Intake, Oral Amount 480 / 960 Intake, Total IV Amount 115.676 / 1061.676 580 / 580 Bumetanide 10 mg In 0.9 % 110 / 110 Sodium Chloride 60 ml @ 1 MG/HR 10 mls/hr IV .Q10H RACHEL Rx#: [id number] Cefepime HCl 2 gm In 0.9 % 100 / 200 100 / 100 Sodium Chloride 100 ml @ 200 mls/hr IV Q8H RACHEL Rx#:[id number] Milrinone Lactate 20 mg In 0.9 52 / 52 % Sodium Chloride 80 ml @ 0.125 MCG/KG/MIN 4.728 mls/hr IV . [id number] RACHEL Rx#:[id number] Vancomycin HCl 2,000 mg In 0.9 250 / 250 % Sodium Chloride 250 ml @ 125 mls/hr IV Q12H RCAHEL Rx#:[id number] Output: Output, Urine Amount 3816 / 5783 2033 Other: Number of Unmeasured Voids 0 0 Weight 121.245 kg Patient Weight 06/28/23 23:59 Weight 121.245 kg Laboratory Results - last 24 hr 06/27/23 08:10: POC Glucose 313 H* 06/27/23 09:15: APTT 57.0 H*, Sodium 132 L, Potassium 4.7, Chloride 102, Carbon Dioxide 20 L, Anion Gap 14.7, BUN 25 H, Creatinine 0.80, Estimated Creat Clear 70, Estimated GFR 75, Est GFR ( Amer) 91, Glucose 329 H D, Calcium 8.3 L, Phosphorus 4.3, Magnesium 1.5 L 06/27/23 10:24: Chlamy pneumoniae PCR Not detected, Adenovirus (PCR) Not detected, B. pertussis DNA (PCR) Not detected, Coronavirus OC43 (PCR) Not detected, Coronavirus HKU1 (PCR) Not detected, Coronavirus 229E (PCR) Not detected, SARS-CoV-2 (PCR) Not detected, Coronavirus NL63 (PCR) Not detected, Human Metapneumovir PCR Not detected, Influenza A (H1) PCR Not detected, Influ A (H1N1/09) PCR Not detected, Influenza A (H3) PCR Not detected, Influenza Type A (PCR) Not detected, Influenza Type B (PCR) Not detected, M. pneumoniae (PCR) Not detected, Parainfluenza 1 (PCR) Not detected, Parainfluenza 2 (PCR) Not detected, Parainfluenza 3 (PCR) Not detected, Parainfluenza 4 (PCR) Not detected, RSV (PCR) Not detected, Entero/Rhino (PCR) Not detected 06/27/23 10:55: WBC 12.4 H D, RBC 4.03 L, Hgb 12.4, Hct 37.3, MCV 92.6, MCH 30.9, MCHC 33.4, RDW 13.9, Plt Count 172 D, MPV 9.3, Neut % (Auto) 76.9, Lymph % (Auto) 18.2, [place] % (Auto) 3.4, Eos % (Auto) 1.2, Baso % (Auto) 0.4, Neut # (Auto) 9.5 H, Lymph # (Auto) 2.3, [place] # (Auto) 0.4, Eos # (Auto) 0.1, Baso # (Auto) 0.0 06/27/23 11:37: POC Glucose 328 H* 06/27/23 15:12: Activated Clotting Time 306 H*, ABG O2 Sat (Measured) 32 L, POC VBG O2 Sat (Og) 33 L 06/27/23 17:14: POC Glucose 288 H 06/27/23 21:28: POC Glucose 368 H* 06/28/23 05:43: WBC 10.3, RBC 4.10 L, Hgb 12.5, Hct 38.9, MCV 94.9, MCH 30.4, MCHC 32.1, RDW 13.8, Plt Count 187, MPV 8.7, Neut % (Auto) 78.1, Lymph % (Auto) 16.5, [place] % (Auto) 4.7, Eos % (Auto) 0.2, Baso % (Auto) 0.4, Neut # (Auto) 8.0 H, Lymph # (Auto) 1.7, [place] # (Auto) 0.5, Eos # (Auto) 0.0, Baso # (Auto) 0.1, Sodium 135 L, Potassium 3.1 L D, Chloride 101, Carbon Dioxide 26, Anion Gap 11.1, BUN 24 H, Creatinine 1.00 D, Estimated Creat Clear 56, Estimated GFR 58 L , Est GFR ( Amer) 70 D, Glucose 337 H, Calcium 7.9 L 06/28/23 06:15: POC Glucose 340 H* I & O for Labs for Last 24 Hours: Intake & Output 06/25/23 06/26/23 06/27/23 06/28/23 23:59 23:59 23:59 23:59 Intake Total 1050.131 / 6760.960 9180.676 / 2021.676 580 / 580 Output Total 0 / 0 5316 / 5783 2033 Balance 1050.131 / 1050.131 -3294.324 / -3761.324 -1454 / -1454 Weight 126.099 kg 126.08 kg 121.245 kg Microbiology Reports for the Last 24 Hours: Microbiology 06/26/23 10:44 Blood Blood Culture - Preliminary Constitutional: Present no acute distress, morbidly obese, chronically ill appearing and cooperative Head: Present atraumatic and normocephalic ENT: Present normal exam Comment:: Poor dentition Respiratory: Present crackles (Mild bilateral bases posterior lung valdivia) and normal respiratory effort; Absent rhonchi or wheezes Cardiac: Present Regular Rhythm and Tachycardia GI: Present soft and normal bowel sounds; Absent distention or tenderness Extremities: Present normal inspection, full ROM and edema (1+ edema to knees) Skin: Present intact; Absent erythema Neuro: Present Grossly Intact, alert, awake, oriented x 3 and moves all extremities Assessment and Plan *Assessment and plan (1) STEMI (ST elevation myocardial infarction): Status: Acute Category: Medical Code(s): I21.3 - ST elevation (STEMI) myocardial infarction of unspecified site (2) Hyperosmolar hyperglycemic state (HHS): Status: Acute Category: Medical Code(s): E11.00 - Type 2 diabetes mellitus with hyperosmolarity without nonketotic hyperglycemic-hyperosmolar coma (NKHHC) (3) Pleural effusion on right: Status: Acute Category: Medical Code(s): J90 - Pleural effusion, not elsewhere classified (4) Heart failure with reduced ejection fraction: Status: Acute Category: Medical Code(s): I50.20 - Unspecified systolic (congestive) heart failure (5) ACS (acute coronary syndrome): Status: Acute Category: Medical Code(s): I24.9 - Acute ischemic heart disease, unspecified (6) UTI (urinary tract infection): Status: Acute Qualifiers: Hematuria presence: without hematuria Urinary tract infection type: site unspecified Qualified Code(s): N39.0 - Urinary tract infection, site not specified Category: Medical Code(s): N39.0 - Urinary tract infection, site not specified (7) Acute hypoxic respiratory failure: Status: Acute Category: Medical Code(s): J96.01 - Acute respiratory failure with hypoxia (8) Pneumonia: Status: Acute Category: Medical Code(s): J18.9 - Pneumonia, unspecified organism (9) Dyspnea: Status: Acute Category: Medical Code(s): R06.00 - Dyspnea, unspecified (10) Class 3 obesity: Status: Chronic Category: Medical Code(s): E66.01 - Morbid (severe) obesity due to excess calories (11) Gram-positive bacteremia: Status: Acute Category: Medical Code(s): R78.81 - Bacteremia Plan Patient is a 53-year-old female who presents to the hospital due to complaints of shortness of breath dyspnea. Patient has past medical history of hypertension hyperlipidemia diabetes mellitus, CAD. According to patient she had chest pains on Tuesday which resolved however she started feeling short of breath after that. Patient mentions she has not been compliant with diabetic medications. Patient admitted for HHS, late presentation of STEMI, respiratory failure. Found to be in cardiogenic shock with acute heart failure with reduced ejection fraction and pulmonary edema. Her HHS is improving. Status post cath on 06/26 with successful stenting. Continues to require ICU level care due to milrinone drip and Bumex drip. Anticipate discharge in the coming days if continues to progress at current rate. Prognosis fair, condition serious. Pulmonology and cardiology assisting with care. Problems addressed as follows: HHS/DKA Uncontrolled diabetes -A1c 12.8 - Transitioned to basal bolus regimen. Will initiate long-acting Lantus this morning with 15 units. Continue 25 units nightly. Continue sliding scale as needed, required 40 units yesterday -Adjust needs pending daily insulin requirements. Morning glucose of 337, goal less than 150 Late presentation of STEMI Acute heart failure with reduced ejection fraction/ischemic cardiomyopathy Pulmonary edema -Cardiology consulted, assisting with care. Discussed case today. Continue Bumex drip as patient is still frankly volume overloaded. No bump in creatinine yet. Creatinine 1.0, BUN 24. Repeat CBC, CMP, magnesium ordered for the morning. -Potassium low at 3.1, will replace orally. Repeat BMP at 5 PM -Troponin peaked at 53 - Left heart cath 06/27/2023: Successful stenting of the ostial proximal mid LAD with 1 drug-eluting stent. - Continue Effient 10 mg daily plus aspirin 81 mg daily. Statin on hold awaiting liver enzymes. No beta-zion at this time due to low cardiac output state. - Preliminary Echo shows an estimated EF of 20-25% with wall motion abnormalities noted. Official read is pending. May necessitate LifeVest -Will continue Beckham for strict monitoring of output with diuresis. Anticipate discharge of Beckham tomorrow Bacteremia: - Blood cultures positive for gram-positive cocci. Unclear the significance. In the setting of her presentation with DKA, STEMI, hypotension, will continue vancomycin IV. Monitoring for toxicity. -Repeat blood cultures pending Hypothyroid: Continue levothyroxine 175 mcg daily Suspected pneumonia versus pulmonary edema -CT of chest with right upper lobe opacity. Pulmonology was consulted. Will continue ceftriaxone and azithromycin to cover for community-acquired pneumonia for 3 days. -Discussed case with pulmonology, wean oxygen as tolerated. Weaned to room air today. Continue DuoNebs every 6 hours as needed Full code Diabetic diet DVT prophylaxis-heparin
[2023-06-28] MEDS: MILRINONE LACTATE 20 MG in 0.9 % SODIUM CHLORIDE 80 ML 4.73000000000000043 MG IV (08:15)
--- NOTE | 2023-06-28 08:29 | SW/DCPLANNER ---
Addendum entered by Lexis Davidson 07/01/23 11:07: I have updated Elke Jackson that patient will return today. Addendum entered by Lexis Davidson 06/29/23 12:06: Elke Jackson was onsite to evaluate this patient today. Elke stated that patient can return once medically stable for discharge w/ emmett LifeVest. Addendum entered by Lexisnayana Davidson 06/28/23 10:30: Per patient is now on RA and will not require transfer. Patient may be able to return to [facility] once medically stable for discharge. Discharge date is unknown at this time. I will continue to follow up w/ MD baljinder and Pérez Jackson. Original Note: This patient currently resides at [facility]. I have updated Elke Jackson that patient may require a transfer or need placement at time of discharge. Discharge date is unknown at this time.
[2023-06-28] MEDS: KCl 10mEq/100ml 100 ML 100 MEQ IV ×3 (09:00→11:17)
[2023-06-28] MEDS: VANCOMYCIN HCL 2,000 MG in 0.9 % SODIUM CHLORIDE 250 ML 125 MG IV ×2 (09:00→20:48)
[2023-06-28] MEDS: INSULIN GLARGINE 100 UNITS/ML 3ML FLEXPEN 15 UNIT SQ (09:00)
[2023-06-28] MEDS: POTASSIUM CHLORIDE 20MEQ TAB 20 MEQ PO ×3 (09:39→20:40)
--- NOTE | 2023-06-28 09:39 | EXP.CARD.PN ---
Subjective Subjective Date: 06/28/23 Time: 08:00 Principal diagnosis: Late presentation STEMI Interval history: Patient is status post left heart catheterization yesterday see report below. Patient reports she is feeling okay denies chest pain or shortness of breath patient is asking to take a shower this morning. Patient remains on milrinone and Bumex drip and has diuresed over 4 L. Exam Data for Last 24 hours Vital signs and Labs for Last 24 Hours: Temp Pulse Resp BP Pulse Ox O2 Del Method O2 Flow Rate 97.6 F 115 H 28 H 113/74 95 Nasal Cannula 4 06/28/23 08:00 06/28/23 06:00 06/28/23 06:00 06/28/23 06:00 06/28/23 06:00 06/28/23 06:59 06/28/23 06:00 Laboratory Results - last 24 hr 06/27/23 09:15: APTT 57.0 H*, Sodium 132 L, Potassium 4.7, Chloride 102, Carbon Dioxide 20 L, Anion Gap 14.7, BUN 25 H, Creatinine 0.80, Estimated Creat Clear 70, Estimated GFR 75, Est GFR ( Amer) 91, Glucose 329 H D, Calcium 8.3 L, Phosphorus 4.3, Magnesium 1.5 L 06/27/23 10:24: Chlamy pneumoniae PCR Not detected, Adenovirus (PCR) Not detected, B. pertussis DNA (PCR) Not detected, Coronavirus OC43 (PCR) Not detected, Coronavirus HKU1 (PCR) Not detected, Coronavirus 229E (PCR) Not detected, SARS-CoV-2 (PCR) Not detected, Coronavirus NL63 (PCR) Not detected, Human Metapneumovir PCR Not detected, Influenza A (H1) PCR Not detected, Influ A (H1N1/09) PCR Not detected, Influenza A (H3) PCR Not detected, Influenza Type A (PCR) Not detected, Influenza Type B (PCR) Not detected, M. pneumoniae (PCR) Not detected, Parainfluenza 1 (PCR) Not detected, Parainfluenza 2 (PCR) Not detected, Parainfluenza 3 (PCR) Not detected, Parainfluenza 4 (PCR) Not detected, RSV (PCR) Not detected, Entero/Rhino (PCR) Not detected 06/27/23 10:55: WBC 12.4 H D, RBC 4.03 L, Hgb 12.4, Hct 37.3, MCV 92.6, MCH 30.9, MCHC 33.4, RDW 13.9, Plt Count 172 D, MPV 9.3, Neut % (Auto) 76.9, Lymph % (Auto) 18.2, [place] % (Auto) 3.4, Eos % (Auto) 1.2, Baso % (Auto) 0.4, Neut # (Auto) 9.5 H, Lymph # (Auto) 2.3, [place] # (Auto) 0.4, Eos # (Auto) 0.1, Baso # (Auto) 0.0 06/27/23 11:37: POC Glucose 328 H* 06/27/23 15:12: Activated Clotting Time 306 H*, ABG O2 Sat (Measured) 32 L, POC VBG O2 Sat (Og) 33 L 06/27/23 17:14: POC Glucose 288 H 06/27/23 21:28: POC Glucose 368 H* 06/28/23 05:43: WBC 10.3, RBC 4.10 L, Hgb 12.5, Hct 38.9, MCV 94.9, MCH 30.4, MCHC 32.1, RDW 13.8, Plt Count 187, MPV 8.7, Neut % (Auto) 78.1, Lymph % (Auto) 16.5, [place] % (Auto) 4.7, Eos % (Auto) 0.2, Baso % (Auto) 0.4, Neut # (Auto) 8.0 H, Lymph # (Auto) 1.7, [place] # (Auto) 0.5, Eos # (Auto) 0.0, Baso # (Auto) 0.1, Sodium 135 L, Potassium 3.1 L D, Chloride 101, Carbon Dioxide 26, Anion Gap 11.1, BUN 24 H, Creatinine 1.00 D, Estimated Creat Clear 56, Estimated GFR 58 L, Est GFR ( Amer) 70 D, Glucose 337 H, Calcium 7.9 L 06/28/23 06:15: POC Glucose 340 H* I & O for Last 24 hours: Intake & Output 06/25/23 06/26/23 06/27/23 06/28/23 23:59 23:59 23:59 23:59 Intake Total 1050.131 / 9549.035 3388.676 / 2021.676 645.589 / 645.589 Output Total 0 / 0 5316 / 5783 2033 Balance 1050.131 / 1050.131 -3294.324 / -3761.324 -1388.411 / -1388.411 Weight 278 lb 277 lb 15.341 oz 267 lb 4.8 oz Microbiology Reports for the Last 24 Hours: Microbiology 06/26/23 10:44 Blood Blood Culture - Preliminary Constitutional Constitutional: no acute distress *Routine Respiratory Exam Respiratory: Present CTA bilaterally and symmetric chest movement *Routine Cardiovascular Exam Cardiovascular: Present RRR, Normal S1 and Normal S2 *Routine Abdominal Exam Abdominal: Present soft and normoactive bowel sounds; Absent tenderness *Routine Extremities Exam Extremities: Present full ROM and normal capillary refill; Absent edema *Routine Skin Exam Skin: Present intact, dry and warm Detailed Neck Exam: Thyroids Thyroid: Absent bruit Progress Note: A&P Assessment and plan (1) STEMI (ST elevation myocardial infarction): Status: Acute (2) Dyspnea: Status: Acute (3) Heart failure with reduced ejection fraction: Status: Acute Assessment and Plan Assessment and Plan for All Diagnoses:: Late presentation STEMI Troponin 53.10 EKG reviewed, significant ST changes noted [facility] 06/27/2023: Successful stenting of the ostial proximal mid LAD with 1 drug-eluting stent. Continue Effient 10 mg daily plus aspirin 81 mg daily. Statin on hold awaiting liver enzymes. No beta-zion at this time due to low cardiac output state. Acute HFrEF/ischemic cardiomyopathy CTA chest-small right pleural effusion with interstitial prominence throughout both lungs concerning for mild interstitial edema Preliminary Echo shows an estimated EF of 20-25% with wall motion abnormalities noted. Official read is pending. Continue milrinone and Bumex for diuresis Patient is diuresed over 4 L Patient will need LifeVest prior to discharge. Order has been placed. CTA chest -opacity in right upper lobe concerning for pneumonia Pulmonology is following. Will defer treatment and antibiotic selection to pulmonology. CV summary 06/28/2023: Patient is diuresing well. Will continue milrinone and Bumex drip. Liver enzymes are pending.
--- NOTE | 2023-06-28 09:41 | EXP.PULM.PN ---
Subjective *Date: 06/28/23 *Time: 16:22 Interval history: No acute respiratory events overnight. Patient denies any new respiratory complaints. Pulmonology Exam Inpatient Vital signs and Labs for Last 24 Hours: Temp Pulse Resp BP Pulse Ox O2 Del Method O2 Flow Rate 97.6 F 115 H 28 H 113/74 95 Nasal Cannula 4 06/28/23 08:00 06/28/23 06:00 06/28/23 06:00 06/28/23 06:00 06/28/23 06:00 06/28/23 06:59 06/28/23 06:00 Laboratory Results - last 24 hr 06/27/23 09:15: APTT 57.0 H*, Sodium 132 L, Potassium 4.7, Chloride 102, Carbon Dioxide 20 L, Anion Gap 14.7, BUN 25 H, Creatinine 0.80, Estimated Creat Clear 70, Estimated GFR 75, Est GFR ( Amer) 91, Glucose 329 H D, Calcium 8.3 L, Phosphorus 4.3, Magnesium 1.5 L 06/27/23 10:24: Chlamy pneumoniae PCR Not detected, Adenovirus (PCR) Not detected, B. pertussis DNA (PCR) Not detected, Coronavirus OC43 (PCR) Not detected, Coronavirus HKU1 (PCR) Not detected, Coronavirus 229E (PCR) Not detected, SARS-CoV-2 (PCR) Not detected, Coronavirus NL63 (PCR) Not detected, Human Metapneumovir PCR Not detected, Influenza A (H1) PCR Not detected, Influ A (H1N1/09) PCR Not detected, Influenza A (H3) PCR Not detected, Influenza Type A (PCR) Not detected, Influenza Type B (PCR) Not detected, M. pneumoniae (PCR) Not detected, Parainfluenza 1 (PCR) Not detected, Parainfluenza 2 (PCR) Not detected, Parainfluenza 3 (PCR) Not detected, Parainfluenza 4 (PCR) Not detected, RSV (PCR) Not detected, Entero/Rhino (PCR) Not detected 06/27/23 10:55: WBC 12.4 H D, RBC 4.03 L, Hgb 12.4, Hct 37.3, MCV 92.6, MCH 30.9, MCHC 33.4, RDW 13.9, Plt Count 172 D, MPV 9.3, Neut % (Auto) 76.9, Lymph % (Auto) 18.2, [place] % (Auto) 3.4, Eos % (Auto) 1.2, Baso % (Auto) 0.4, Neut # (Auto) 9.5 H, Lymph # (Auto) 2.3, [place] # (Auto) 0.4, Eos # (Auto) 0.1, Baso # (Auto) 0.0 06/27/23 11:37: POC Glucose 328 H* 06/27/23 15:12: Activated Clotting Time 306 H*, ABG O2 Sat (Measured) 32 L, POC VBG O2 Sat (Og) 33 L 06/27/23 17:14: POC Glucose 288 H 06/27/23 21:28: POC Glucose 368 H* 06/28/23 05:43: WBC 10.3, RBC 4.10 L, Hgb 12.5, Hct 38.9, MCV 94.9, MCH 30.4, MCHC 32.1, RDW 13.8, Plt Count 187, MPV 8.7, Neut % (Auto) 78.1, Lymph % (Auto) 16.5, [place] % (Auto) 4.7, Eos % (Auto) 0.2, Baso % (Auto) 0.4, Neut # (Auto) 8.0 H, Lymph # (Auto) 1.7, [place] # (Auto) 0.5, Eos # (Auto) 0.0, Baso # (Auto) 0.1, Sodium 135 L, Potassium 3.1 L D, Chloride 101, Carbon Dioxide 26, Anion Gap 11.1, BUN 24 H, Creatinine 1.00 D, Estimated Creat Clear 56, Estimated GFR 58 L, Est GFR ( Amer) 70 D, Glucose 337 H, Calcium 7.9 L 06/28/23 06:15: POC Glucose 340 H* Temp Pulse Resp BP Pulse Ox O2 Del Method O2 Flow Rate 98.2 F 111 H 22 115/80 96 Nasal Cannula 4 06/27/23 08:47 06/27/23 09:30 06/27/23 09:30 06/27/23 09:30 06/27/23 08:00 06/27/23 09:44 06/27/23 09:44 Laboratory Results - last 24 hr 06/26/23 10:30: WBC 16.9 H, RBC 5.04, Hgb 15.3, Hct 50.0 H, MCV 99.2 H, MCH 30.4, MCHC 30.7 L, RDW 13.5, Plt Count 234, MPV 9.8, Neut % (Auto) 81.8 H, Lymph % (Auto) 13.5, [place] % (Auto) 3.8, Eos % (Auto) 0.6, Baso % (Auto) 0.4, Neut # (Auto) 13.8 H, Lymph # (Auto) 2.3, [place] # (Auto) 0.6, Eos # (Auto) 0.1, Baso # (Auto) 0.1, Total Counted 100, Neutrophils % (Manual) 83 H, Band Neutrophils % 5.0, Lymphocytes % (Manual) 7 L, Monocytes % (Manual) 5, Platelet Estimate Normal, RBC Morphology Normal, PT 11.5, INR 1.07, APTT 27.7, Sodium 127 L, Potassium 5.7 H, Chloride 95 L, Carbon Dioxide 20 L, Anion Gap 17.7 H, BUN 24 H, Creatinine 1.00, Estimated Creat Clear 56, Estimated GFR 58 L, Est GFR ( Amer) 70, Glucose 747 H*, Calcium 9.7, Total Bilirubin 1.5 H, AST 225 H, ALT 62, Alkaline Phosphatase 96, Troponin I 53.10 H, Total Protein 6.7, Albumin 3.8, Globulin 2.9, Albumin/Globulin Ratio 1.3, Lipase 70, Acetone Level Small 06/26/23 10:37: VBG pH 7.33, VBG pCO2 32.6 L, VBG pO2 41.2 H, VBG HCO3 16.9 L, VBG Total CO2 17.9 L, VBG O2 Saturation 70.3 H, VBG Base Excess -9.0 L, VBG Lactic Acid 3.9 H 06/26/23 10:44: Hemoglobin A1c 12.8 H, Phosphorus 5.6 H, Magnesium 1.6, Ammonia < 9 L 06/26/23 11:09: Urine Color Yellow, Urine Appearance Clear, Urine pH 6.0, Ur Specific [place] <= 1.005, Urine Protein Negative, Urine Glucose (UA) 3+, Urine Ketones 1+, Urine Blood Trace-i, Urine Nitrate Positive, Urine Bilirubin Negative, Urine Urobilinogen 0.2, Ur Leukocyte Esterase Trace, Urine RBC None, Urine WBC 3-5, Ur Squamous Epith Cells Occasional, Urine Bacteria 2+ 06/26/23 13:17: POC Glucose 452 H* 06/26/23 13:30: Sodium 132 L, Potassium 4.3 D, Chloride 96 L, Carbon Dioxide 23, Anion Gap 17.3 H, BUN 23 H, Creatinine 0.80, Estimated Creat Clear 70, Estimated GFR 75, Est GFR ( Amer) 91 D, Glucose 357 H D, Calcium 9.8, Phosphorus 4.7 H, Magnesium 1.7, Troponin I 45.40 H, Procalcitonin 0.424 06/26/23 14:04: POC Glucose 367 H* 06/26/23 14:55: Lactate 4.4 H 06/26/23 15:02: POC Glucose 304 H* 06/26/23 16:05: POC Glucose 233 H 06/26/23 17:10: Sodium 134 L, Potassium 5.0, Chloride 102, Carbon Dioxide 24, Anion Gap 13.0, BUN 23 H, Creatinine 0.80, Estimated Creat Clear 70, Estimated GFR 75, Est GFR ( Amer) 91, Glucose 112 H D, Lactate 5.8 H, Calcium 9.7, Phosphorus 3.7, Magnesium 1.7, Troponin I 49.20 H 06/26/23 17:16: POC Glucose 148 H 06/26/23 17:56: POC Glucose 156 H 06/26/23 18:10: APTT 30.6 06/26/23 18:51: POC Glucose 125 H 06/26/23 20:05: POC Glucose 162 H 06/26/23 21:19: POC Glucose 171 H 06/26/23 21:30: Sodium 135 L, Potassium 5.4 H, Chloride 111 H, Carbon Dioxide 18 L, Anion Gap 11.4, BUN 23 H, Creatinine 0.70, Estimated Creat Clear 80, Estimated GFR 88, Est GFR ( Amer) 106, Glucose 162 H D, Calcium 9.3, Phosphorus 3.7, Magnesium 1.6 06/26/23 22:18: POC Glucose 164 H 06/27/23 00:42: POC Glucose 176 H 06/27/23 02:00: Troponin I 50.30 H 06/27/23 02:30: APTT 39.3 H 06/27/23 08:10: POC Glucose 313 H* I & O for Labs for Last 24 Hours: Intake & Output 06/25/23 06/26/23 06/27/23 06/28/23 23:59 23:59 23:59 23:59 Intake Total 1050.131 / 5454.520 2392.676 / 2021.676 645.589 / 645.589 Output Total 0 / 0 5316 / 5783 2033 Balance 1050.131 / 1050.131 -3294.324 / -3761.324 -1388.411 / -1388.411 Weight 278 lb 277 lb 15.341 oz 267 lb 4.8 oz Intake & Output 06/24/23 06/25/23 06/26/23 06/27/23 23:59 23:59 23:59 23:59 Intake Total 1050.131 / 9789.606 6616 / 1108 Output Total 0 / 0 1050 / 1050 Balance 1050.131 / 1050.131 58 / 58 Weight 278 lb 277 lb 15.341 oz Microbiology Reports for the Last 24 Hours: Microbiology 06/26/23 10:44 Blood Blood Culture - Preliminary Constitutional: Present moderate distress Head: Present normocephalic and atraumatic ENT: Present normal exam, normal oropharynx and mucous membranes moist Neck: Present normal inspection and full ROM Respiratory: Present respiratory distress, crackles, diminished air movement and able to speak in complete sentences; Absent prolonged expiratory phase, rhonchi or wheezes Cardiac: Present S1/S2, Tachycardia and radial pulses present GI: Present soft and distention; Absent tenderness or guarding Rectal (female): Present deferred (female): Present deferred Skin: Present intact; Absent cyanosis or jaundice Neuro: Present alert, awake and oriented x 3 Extremities: Present normal inspection; Absent clubbing or cyanosis Psychiatric: Present normal affect and cooperative Assessment and Plan *Assessment and plan (1) Acute hypoxic respiratory failure: Status: Acute Category: Medical Code(s): J96.01 - Acute respiratory failure with hypoxia (2) Pneumonia: Status: Acute Category: Medical Code(s): J18.9 - Pneumonia, unspecified organism (3) Pleural effusion on right: Status: Acute Category: Medical Code(s): J90 - Pleural effusion, not elsewhere classified Plan Ms. Denton is a 53-year-old female with no significant smoking history, no prior respiratory complaints, not using oxygen at baseline presented to the ER with worsening respiratory distress and chest discomfort and pulmonary was called for further evaluation and management. Patient is patient is a scheduled on resident, found to be hypoxic with O2 sats at 50% initially needing nonrebreather to get her sats to 90% and above. CTA upon admission reviewed, no evidence of pulmonary embolism, small right pleural effusion along with groundglass opacities. No dense consolidation/airspace disease appreciated. Afebrile afebrile. Neutrophilic leukocytosis upon admission. Tachycardia. VBG upon admission did not show any evidence of hypoxic/hypercarbic respiratory failure. Patient glucose was significantly elevated upon admission with no evidence of acidosis and she was initiated on HHS protocol. Patient was also initiated on heparin drip for NSTEMI. Cardiology following. Initial Examination patient appeared to be in moderate respiratory distress. Bibasilar crackles on auscultation. No significant wheezing appreciated. Interval update: Comprehensive respiratory viral PCR panel negative No acute respiratory vents overnight. Weaned to room air this morning with saturations maintained at 90% and above. Continue to receive diuresis. Cardiology following. Plan: Abx can be weaned to Ceftriaxone and Azithromycin to cover CAP to complete a total of 3-day course Duo Nebs Q 6 PRN Continue NC oxygen supplementation as needed to maintain O2 sat goal of 90 to 95% # Thank you for involving pulmonary in this patient care. Will continue to follow.
[2023-06-28 10:08] LABS: Alanine Aminotransferase 42 U/L (12-78); Alkaline Phosphatase 104 U/L (38-126); Aspartate Amino Transferase 121 U/L (14-36); Bilirubin,Direct 0.5 mg/dl (0.0-0.4); Bilirubin,Indirect 0.5 mg/dL (0.0-0.9); Bilirubin,Unconjugated 0.6 mg/dL (0.0-1.1); Total Protein,Serum 5.5 g/dl (6.3-8.2)
[2023-06-28 11:57] LABS: POC Glucose,Bedside 440 (70-110)
--- NOTE | 2023-06-28 13:38 | HMH.SLDYSPHA ---
Speech & Language Evaluation Speech/Language Dysphagia Evaluation Start: 06/28/23 13:28 Freq: ONCE Status: Active Protocol: Document 06/28/23 13:28 AYSEADELIA (Rec: 06/28/23 13:35 [id number] Dysphagia Assess/Goals/Plan Assessment Date of Evaluation: 06/28/23 Evaluation Type Initial Certification Assessment/Problems dysphagia per MD order Does Patient Qualify for Service No Qualify/Failure Comment Based on clinical observations made at the bedside during the swallow evaluation, mastication/manipulation and swallowing appear to be WFL. No further skilled speech therapy services are warranted at this time. Recommendations PHYSICIAN CERTIFICATION: The specified therapy services are required, authorized, and reviewed every 30 days. Diet Recommendations Normal Liquid Type Recommendations Normal/Thin SL Swallow Guidelines Assist w/all meals,Standard Aspiration Prec.,Eat at slow rate Dysphagia Swallow Precautions/Strategies Small Bites and Sips,Alternate Liquids/Solids Plan Pt/Guardian verbally ack understanding Yes of dx/prognosis/goals G -code Required No Education Instructions provided Discussed CSE results, diet recommendations, compensatory strategies/aspiration precautions with pt, nursing, and care management all of which expressed understanding. Pt/Caregiver able to recall information Able to recall/restate Reinforcement needed No Speech & Language HPI History Present Illness Description of Patient Problem Patient is a 53-year-old female who presents to the hospital due to complaints of shortness of breath dyspnea. Patient has past medical history of hypertension hyperlipidemia diabetes mellitus, CAD. According to patient she had chest pains on Tuesday which resolved however she started feeling short of breath after that. Patient mention she has not been compliant with diabetic medications. At time of my evaluation patient denies chest pain nausea vomiting diarrhea constipation dysuria fevers and chills. She endorses shortness of breath with exertion. On further evaluation patient was found to have been HHS and elevated troponin. Chest CTA impressions reported small right pleural effusion and subtle hazy opacities in right upper lobe concerning for pna . Rehab Services Assessed Speech therapy Is this evaluation r/t stroke? No Language Primary Language Irish General Information General Current Food Consistancy Regular,Thin Liquids Dentition Poor Dentition Comment: easy to chew solids/mechanical soft Oxygen Status Room Air Patient Orientation Person,Place,Time,Situation Ability to Follow Directions Good Communication Ability Mild Impairment Dysphagia:Food Presentation Evaluation Food Type Pureed,Mechanical Soft,Liquid, Pudding Dysphagia Evaluation Summary Pt was seen sitting upright in her chair for her clinical bedside swallow evaluation eating lunch. She was A&Ox4. OPHTHALMOLOGIST observed pt eating lunch as well as typical CSE bolus administration involving thin liquids, pudding, pureed applesauce, and mechanical soft solid. Pt declined kristy johnson 2' no upper dentures in place. No overt s/sxs of aspiration were observed across trials observed. Pt was able to take consecutive sips of a thin liquid with an open cup and a straw with no signs of discomfort or distress. It is recommended that pt continue on easy to chew, regular solid diet and thin liquids. No further skilled speech therapy services are warranted at this time. Stroke Dysphagia Assessment PHYSICIAN CERTIFICATION: I certify the specified therapy services for Bernice Denton (Dottie) are required, authorized, and reviewed every 30 days.
[2023-06-28 16:50] LABS: POC Glucose,Bedside 469 (70-110)
--- NOTE | 2023-06-28 17:35 | PC.NURSE ---
Bumex and milrinone drip currently infusing. VS stable and patient weaned to room air. Patient laying down in bed and requesting to wear oxygen. !LNC applied for comfort. Lung sounds clear. FSBS in 400's during shift, md aware, additional insulin given per dr orders.
[2023-06-28 18:13] LABS: Chloride 94 mmol/L (98-107); Sodium 133 mmol/L (136-145)
[2023-06-28 18:14] LABS: Potassium 3.1 mmoL/L (3.5-5.1)
[2023-06-28 18:16] LABS: Anion Gap 12.1 mEq/L (5-15); Blood Urea Nitrogen 25 mg/dl (7-17); Carbon Dioxide 30 mmol/L (22.0-30.0); Creatinine Clearance Estimated 62 mL/min (50-200); Estimated Glomerular Filt Rate 65 ml/min (>60); GFR (African American) 79 ML/MIN (>60)
[2023-06-28 18:17] LABS: Glucose 343 mg/dl (74-100); Magnesium 1.8 mg/dl (1.6-2.3)
[2023-06-28 20:07] LABS: Vancomycin,Trough 17.9 ug/mL (5.0-10.0)
[2023-06-28] MEDS: PHA TO NURSING INSTRUCTION 1 EACH NOTAPPLIC (20:40)
[2023-06-28] MEDS: MAGNESIUM SULFATE IN WATER 2 GM/50 ML PIGGYBACK IV (20:40)
[2023-06-28] MEDS: POTASSIUM CHLORIDE 20MEQ TAB 40 MEQ PO (20:40)
[2023-06-28] MEDS: PRAVASTATIN 40MG TAB 40 MG PO (20:40)
[2023-06-28] MEDS: INSULIN GLARGINE 100 UNITS/ML 3ML FLEXPEN 30 UNIT SQ (20:41)
[2023-06-28 21:12] LABS: POC Glucose,Bedside 207 (70-110)
[2023-06-29] VITALS (15 sets, daily range): BP systolic 87–126; BP diastolic 42–74; PULSE 90–127; RESP 20–28; TEMP 36.4–37.2; O2SAT 94–98; BMI 44.3; BMI 44.0
[2023-06-29] MEDS: CEFEPIME HCL 2 GM in 0.9 % SODIUM CHLORIDE 100 ML IV ×2 (00:06→07:42)
[2023-06-29 02:27] LABS: Vancomycin,Peak 31.4 ug/ml (11-39)
[2023-06-29] MEDS: MILRINONE LACTATE 20 MG in 0.9 % SODIUM CHLORIDE 80 ML 4.73000000000000043 MG IV (04:47)
[2023-06-29 05:48] LABS: POC Glucose,Bedside 312 (70-110)
[2023-06-29 05:56] LABS: Basophils % 0.3 % (0.1-2.0); Eosinophils % 0.5 % (0.1-12.0); Hematocrit 38.3 % (37.0-47.0); Hemoglobin 12.3 g/dL (12.2-16.2); Lymphocytes # 2.1 K/mm3 (0.7-4.5); Mean Corpuscular HGB Conc 32.3 g/dL (31.8-35.4); Mean Corpuscular Hemoglobin 30.7 pg (27.0-31.2); Mean Corpuscular Volume 95.1 fl (81-99); Mean Platelet Volume 9.1 fl (7.4-10.4); Monocytes # 0.4 K/mm3 (0.1-1.0); Monocytes % 4.6 % (1.7-9.3); Neutrophils # 5.4 K/mm3 (1.8-7.8); Neutrophils % 68.6 % (37.0-80.0); Platelet Count 200 K/mm3 (142-424); Red Blood Count 4.02 M/mm3 (4.20-5.40); Red Cell Distribution Width 13.5 % (11.5-17.5); White Blood Count 7.9 K/mm3 (4.8-10.8)
[2023-06-29 06:04] LABS: Alanine Aminotransferase 47 U/L (12-78); Albumin Level 3.5 g/dl (3.5-5.0); Albumin/Globulin Ratio 1.1 (1.1-1.8); Alkaline Phosphatase 89 U/L (38-126); Anion Gap 12.2 mEq/L (5-15); Aspartate Amino Transferase 102 U/L (14-36); Bilirubin,Total 0.6 mg/dl (0.2-1.3); Blood Urea Nitrogen 23 mg/dl (7-17); Calcium 7.9 mg/dl (8.4-10.2); Carbon Dioxide 34 mmol/L (22.0-30.0); Chloride 93 mmol/L (98-107); Creatinine Clearance Estimated 70 mL/min (50-200); Estimated Glomerular Filt Rate 75 ml/min (>60); GFR (African American) 91 ML/MIN (>60); Globulin 3.3 g/dL (1.3-3.2); Glucose 256 mg/dl (74-100); Potassium 3.2 mmoL/L (3.5-5.1); Sodium 136 mmol/L (136-145); Total Protein,Serum 6.8 g/dl (6.3-8.2)
[2023-06-29] MEDS: humaLOG 100 UNITS/ML 3ML VIAL (SSI) SQ ×4 (06:11→20:52)
[2023-06-29] MEDS: LEVOTHYROXINE 175MCG (0.175MG) TAB 175 MCG PO (06:12)
[2023-06-29] MEDS: POTASSIUM CHLORIDE 20MEQ TAB 20 MEQ PO ×3 (07:42→20:51)
[2023-06-29] MEDS: CITALOPRAM 40MG TABLET 40 MG PO (07:42)
[2023-06-29] MEDS: ASPIRIN EC 81MG TABLET 81 MG PO (07:43)
[2023-06-29] MEDS: PRASUGREL 10MG TAB 10 MG PO (07:43)
[2023-06-29] MEDS: buPROPion HCl SR 150MG TAB 150 MG PO (07:43)
--- NOTE | 2023-06-29 08:05 | EXP.PHA.CONS ---
Pharmacy Consult Date: 06/29/23 Time: 08:05 Referring provider: DR GUALLPA Reason for Consult:: VANCOMYCIN PEAK AND TROUGH LEVELS OBTAINED. Allergies Allergy/AdvReac Type Severity Reaction Status Date / Time No Known Allergies Allergy Verified 06/26/23 11:01 Home Medications Medication Instructions Recorded Confirmed Type bupropion HCl 150 mg 24 hr tablet, 150 mg PO DAILY 06/26/23 06/26/23 History extended release citalopram 40 mg tablet 40 mg PO DAILY 06/26/23 06/26/23 History ibuprofen 600 mg tablet 600 mg PO Q6HP PRN Mild Pain 06/26/23 06/26/23 History (Scale Score 1-4) insulin glargine 100 unit/mL (3 7 unit SQ DAILY 06/26/23 06/26/23 History mL) subcutaneous pen (Lantus Solostar U-100 Insulin) lactulose 10 gram/15 mL oral 30 ml PO BIDP PRN Constipation 06/26/23 06/26/23 History solution levothyroxine 175 mcg tablet 175 mcg PO DAILY 06/26/23 06/26/23 History metformin 500 mg tablet 500 mg PO BIDWMEAL 06/26/23 06/26/23 History norethindrone acetate 5 mg tablet 5 mg PO DAILY 06/26/23 06/26/23 History simvastatin 20 mg tablet 20 mg PO HS 06/26/23 06/26/23 History New Prescriptions to Start Prescriptions: Height: 1.65 m Weight: 120.701 kg Laboratory Results:: Laboratory Results - last 24 hr 06/28/23 05:43: Total Bilirubin 1.0, Direct Bilirubin 0.5 H, Conjugated Bilirubin 0.0, Indirect Bilirubin 0.5, Unconjugated Bilirubin 0.6, AST 121 H D, ALT 42 D, Alkaline Phosphatase 104, Total Protein 5.5 L, Albumin 3.0 L 06/28/23 11:20: POC Glucose 440 H* 06/28/23 16:26: POC Glucose 469 H* 06/28/23 17:49: Sodium 133 L, Potassium 3.1 L, Chloride 94 L, Carbon Dioxide 30, Anion Gap 12.1, BUN 25 H, Creatinine 0.90, Estimated Creat Clear 62, Estimated GFR 65, Est GFR ( Amer) 79, Glucose 343 H, Calcium 8.0 L, Magnesium 1.8 D 06/28/23 19:24: Vancomycin Trough 17.9 H 06/28/23 20:36: POC Glucose 207 H 06/29/23 01:30: Vancomycin Peak 31.4 06/29/23 05:19: WBC 7.9, RBC 4.02 L, Hgb 12.3, Hct 38.3, MCV 95.1, MCH 30.7, MCHC 32.3, RDW 13.5, Plt Count 200, MPV 9.1, Neut % (Auto) 68.6, Lymph % (Auto) 26.0, [place] % (Auto) 4.6, Eos % (Auto) 0.5, Baso % (Auto) 0.3, Neut # (Auto) 5.4, Lymph # (Auto) 2.1, [place] # (Auto) 0.4, Eos # (Auto) 0.0, Baso # (Auto) 0.0, Sodium 136, Potassium 3.2 L, Chloride 93 L, Carbon Dioxide 34 H, Anion Gap 12.2, BUN 23 H, Creatinine 0.80, Estimated Creat Clear 70, Estimated GFR 75, Est GFR ( Amer) 91, Glucose 256 H D, Calcium 7.9 L, Magnesium 2.0 D, Total Bilirubin 0.6, AST 102 H, ALT 47, Alkaline Phosphatase 89, Total Protein 6.8, Albumin 3.5 D, Globulin 3.3 H, Albumin/Globulin Ratio 1.1 06/29/23 05:40: POC Glucose 312 H* Medical History: Medical History (Updated 06/28/23 @ 16:46 by Trever Guallpa MD) Pleural effusion on right History of anemia Depressed Arthritis Hypothyroid Diabetes Assessment and Plan Assessment and plan all Dx Assessment and Plan for all problems:: VANCOMYCIN PEAK AND TROUGH LEVELS OBTAINED. VANCOMYCIN TROUGH: 17.9 MCG/ML (06/28/23 19:24) VANCOMYCIN PEAK: 31.4 MCG/ML (06/29/23 01:30) RECOMMEND CONTINUING VANCOMYCIN 2000 MG IV Q12H.
--- NOTE | 2023-06-29 08:28 | EXP.PHA.PN ---
Subjective *Date: 06/29/23 *Time: 08:28 Medical Exam Vital signs and Labs for Last 24 Hours: Vital Signs Temp Pulse Pulse Resp BP Pulse Ox O2 Del Method 06/29/23 06:00 127 H 24 106/59 L 96 Nasal Cannula 06/29/23 05:00 102 H 25 H 96/52 L 98 Nasal Cannula 06/29/23 05:00 Nasal Cannula 06/29/23 04:00 100 H 06/29/23 04:00 98.9 F 94 H 24 91/49 L 98 Nasal Cannula 06/29/23 04:00 Nasal Cannula 06/29/23 03:00 Nasal Cannula 06/29/23 03:00 96 H 22 94 L Nasal Cannula 06/29/23 02:00 104 H 25 H 87/64 L 95 Nasal Cannula 06/29/23 01:00 113 H 20 107/65 L 94 L Nasal Cannula 06/29/23 01:00 Nasal Cannula 06/29/23 00:00 107 H 06/29/23 00:00 Nasal Cannula 06/29/23 00:00 98.9 F 113 H 28 H 107/50 L 94 L Nasal Cannula 06/28/23 23:00 104 H 18 100/38 L 94 L Nasal Cannula 06/28/23 23:00 Nasal Cannula 06/28/23 22:00 107 H 20 149/74 H 97 Nasal Cannula 06/28/23 21:00 Nasal Cannula 06/28/23 21:00 111 H 25 H 123/51 L 97 Nasal Cannula 06/28/23 20:00 Nasal Cannula 06/28/23 20:00 98.7 F 115 H 25 H 109/55 L 95 Nasal Cannula 06/28/23 20:00 120 H 06/28/23 19:00 112 H 26 H 102/64 L 93 L Nasal Cannula 06/28/23 18:37 Room Air 06/28/23 18:00 118 H 27 H 104/52 L 109 H Room Air 06/28/23 17:00 Room Air 06/28/23 17:00 110 H 24 134/63 98 Nasal Cannula 06/28/23 16:00 110 H 06/28/23 16:00 Room Air 06/28/23 16:00 99.2 F 06/28/23 15:00 Room Air 06/28/23 15:00 114 H 22 119/70 94 L Room Air 06/28/23 13:28 Room Air 06/28/23 13:00 117 H 24 99/58 L 95 Room Air 06/28/23 13:00 Room Air 06/28/23 12:00 110 H 06/28/23 12:00 106 H 26 H 117/55 L 94 L Room Air 06/28/23 11:55 98.5 F 06/28/23 11:53 Room Air 06/28/23 11:00 110 H 26 H 105/80 L 95 Room Air 06/28/23 11:00 Room Air 06/28/23 10:00 110 H 24 102/58 L 97 Nasal Cannula 06/28/23 09:00 Nasal Cannula 06/28/23 09:00 113 H 24 103/61 L 95 Nasal Cannula O2 Flow Rate 06/29/23 06:00 2 06/29/23 05:00 2 06/29/23 05:00 06/29/23 04:00 06/29/23 04:00 2 06/29/23 04:00 2 06/29/23 03:00 2 06/29/23 03:00 2 06/29/23 02:00 2 06/29/23 01:00 2 06/29/23 01:00 06/29/23 00:00 06/29/23 00:00 2 06/29/23 00:00 2 06/28/23 23:00 2 06/28/23 23:00 06/28/23 22:00 2 06/28/23 21:00 06/28/23 21:00 2 06/28/23 20:00 2 06/28/23 20:00 2 06/28/23 20:00 06/28/23 19:00 2 06/28/23 18:37 06/28/23 18:00 06/28/23 17:00 06/28/23 17:00 2 06/28/23 16:00 06/28/23 16:00 06/28/23 16:00 06/28/23 15:00 06/28/23 15:00 06/28/23 13:28 06/28/23 13:00 06/28/23 13:00 06/28/23 12:00 06/28/23 12:00 06/28/23 11:55 06/28/23 11:53 06/28/23 11:00 06/28/23 11:00 06/28/23 10:00 2 06/28/23 09:00 2 06/28/23 09:00 2 Intake and Output 06/28/23 06/29/23 06/29/23 23:59 07:59 15:59 Intake Total 200 / 2555.589 744.123 / 744.123 Output Total 1840 / 6857 2156 / 2156 Balance -1640 / -4301.411 -1411.877 / -1411.877 Intake: Intake, Total IV Amount 200 / 1595.589 744.123 / 744.123 Bumetanide 10 mg In 0.9 % 235 / 235 Sodium Chloride 60 ml @ 1 MG/HR 10 mls/hr IV .Q10H RACHEL Rx#: [id number] Cefepime HCl 2 gm In 0.9 % 100 / 300 100 / 100 Sodium Chloride 100 ml @ 200 mls/hr IV Q8H RACHEL Rx#:[id number] Milrinone Lactate 20 mg In 0.9 62 / 62 % Sodium Chloride 80 ml @ 0.125 MCG/KG/MIN 4.728 mls/hr IV . [id number] RACHEL Rx#:[id number] Vancomycin HCl 2,000 mg In 0.9 250 / 250 % Sodium Chloride 250 ml @ 125 mls/hr IV Q12H RACHEL Rx#:[id number] Output: Output, Urine Amount 1540 / 3882 2156 / 2156 Output, Urine Amount (Catheter) 300 / 2975 [place] 300 / 2975 Other: Number of Unmeasured Voids 0 Number of Bowel Movements 1 Weight 120.701 kg 120.701 kg Patient Weight 06/29/23 23:59 Weight 120.701 kg Laboratory Results - last 24 hr 06/28/23 05:43: Total Bilirubin 1.0, Direct Bilirubin 0.5 H, Conjugated Bilirubin 0.0, Indirect Bilirubin 0.5, Unconjugated Bilirubin 0.6, AST 121 H D, ALT 42 D, Alkaline Phosphatase 104, Total Protein 5.5 L, Albumin 3.0 L 06/28/23 11:20: POC Glucose 440 H* 06/28/23 16:26: POC Glucose 469 H* 06/28/23 17:49: Sodium 133 L, Potassium 3.1 L, Chloride 94 L, Carbon Dioxide 30, Anion Gap 12.1, BUN 25 H, Creatinine 0.90, Estimated Creat Clear 62, Estimated GFR 65, Est GFR ( Amer) 79, Glucose 343 H, Calcium 8.0 L, Magnesium 1.8 D 06/28/23 19:24: Vancomycin Trough 17.9 H 06/28/23 20:36: POC Glucose 207 H 06/29/23 01:30: Vancomycin Peak 31.4 06/29/23 05:19: WBC 7.9, RBC 4.02 L, Hgb 12.3, Hct 38.3, MCV 95.1, MCH 30.7, MCHC 32.3, RDW 13.5, Plt Count 200, MPV 9.1, Neut % (Auto) 68.6, Lymph % (Auto) 26.0, [place] % (Auto) 4.6, Eos % (Auto) 0.5, Baso % (Auto) 0.3, Neut # (Auto) 5.4, Lymph # (Auto) 2.1, [place] # (Auto) 0.4, Eos # (Auto) 0.0, Baso # (Auto) 0.0, Sodium 136, Potassium 3.2 L, Chloride 93 L, Carbon Dioxide 34 H, Anion Gap 12.2, BUN 23 H, Creatinine 0.80, Estimated Creat Clear 70, Estimated GFR 75, Est GFR ( Amer) 91, Glucose 256 H D, Calcium 7.9 L, Magnesium 2.0 D, Total Bilirubin 0.6, AST 102 H, ALT 47, Alkaline Phosphatase 89, Total Protein 6.8, Albumin 3.5 D, Globulin 3.3 H, Albumin/Globulin Ratio 1.1 06/29/23 05:40: POC Glucose 312 H* I & O for Labs for Last 24 Hours: Intake & Output 06/26/23 06/27/23 06/28/23 06/29/23 23:59 23:59 23:59 23:59 Intake Total 1050.131 / 8163.243 4888.676 / 2020.676 2555.589 / 2555.589 744.123 / 744.123 Output Total 0 / 0 5316 / 5783 6549 / 6857 2156 / 2156 Balance 1050.131 / 1050.131 -3294.324 / -3761.324 -3993.411 / -4301.411 -1411.877 / -1411.877 Weight 126.099 kg 126.08 kg 121.245 kg 120.701 kg Microbiology Reports for the Last 24 Hours: Microbiology 06/26/23 10:45 Blood Blood Culture - Preliminary 06/26/23 10:44 Blood Blood Culture - Preliminary The patient's infection will respond to the chosen ABx?: Yes (BLOOD AND URINE CX PENDING, AFEBRILE OVER 24 HR, WHITE COUNT 7.9.) Is the patient receiving the right drug, dose, and route?: Yes Could a more targeted ABx be ordered?: No How long ABx needed (days)?: 7
--- NOTE | 2023-06-29 09:13 | P.PN_ITS ---
Subjective Subjective Date: 06/29/23 Time: 08:00 Principal diagnosis: Late presentation STEMI Interval history: Patient doing well this morning, sitting up in chair eating breakfast. Denies chest pain. Reports shortness of air is getting better. Patient has diuresed an additional 4 L and is negative 8 L balance. Morning labs reviewed. Exam Data for Last 24 hours Vital signs and Labs for Last 24 Hours: Temp Pulse Resp BP Pulse Ox O2 Del Method O2 Flow Rate 98.8 F 102 H 22 95/51 L 95 Room Air 2 06/29/23 08:00 06/29/23 08:00 06/29/23 08:00 06/29/23 08:00 06/29/23 08:00 06/29/23 08:00 06/29/23 06:00 Laboratory Results - last 24 hr 06/28/23 05:43: Total Bilirubin 1.0, Direct Bilirubin 0.5 H, Conjugated Bilirubin 0.0, Indirect Bilirubin 0.5, Unconjugated Bilirubin 0.6, AST 121 H D, ALT 42 D, Alkaline Phosphatase 104, Total Protein 5.5 L, Albumin 3.0 L 06/28/23 11:20: POC Glucose 440 H* 06/28/23 16:26: POC Glucose 469 H* 06/28/23 17:49: Sodium 133 L, Potassium 3.1 L, Chloride 94 L, Carbon Dioxide 30, Anion Gap 12.1, BUN 25 H, Creatinine 0.90, Estimated Creat Clear 62, Estimated GFR 65, Est GFR ( Amer) 79, Glucose 343 H, Calcium 8.0 L, Magnesium 1.8 D 06/28/23 19:24: Vancomycin Trough 17.9 H 06/28/23 20:36: POC Glucose 207 H 06/29/23 01:30: Vancomycin Peak 31.4 06/29/23 05:19: WBC 7.9, RBC 4.02 L, Hgb 12.3, Hct 38.3, MCV 95.1, MCH 30.7, MCHC 32.3, RDW 13.5, Plt Count 200, MPV 9.1, Neut % (Auto) 68.6, Lymph % (Auto) 26.0, [place] % (Auto) 4.6, Eos % (Auto) 0.5, Baso % (Auto) 0.3, Neut # (Auto) 5.4, Lymph # (Auto) 2.1, [place] # (Auto) 0.4, Eos # (Auto) 0.0, Baso # (Auto) 0.0, Sodium 136, Potassium 3.2 L, Chloride 93 L, Carbon Dioxide 34 H, Anion Gap 12.2, BUN 23 H, Creatinine 0.80, Estimated Creat Clear 70, Estimated GFR 75, Est GFR ( Amer) 91, Glucose 256 H D, Calcium 7.9 L, Magnesium 2.0 D, Total Bilirubin 0.6, AST 102 H, ALT 47, Alkaline Phosphatase 89, Total Protein 6.8, Albumin 3.5 D, Globulin 3.3 H, Albumin/Globulin Ratio 1.1 06/29/23 05:40: POC Glucose 312 H* I & O for Last 24 hours: Intake & Output 06/26/23 06/27/23 06/28/23 06/29/23 23:59 23:59 23:59 23:59 Intake Total 1050.131 / 4746.459 9616.676 / 2021.676 2555.589 / 2555.589 744.123 / 744.123 Output Total 0 / 0 5316 / 5783 6549 / 6857 2606 / 2606 Balance 1050.131 / 1050.131 -3294.324 / -3761.324 -3993.411 / -4301.411 - 1861.877 / -1861.877 Weight 278 lb 277 lb 15.341 oz 267 lb 4.8 oz 264 lb 8.875 oz Microbiology Reports for the Last 24 Hours: Microbiology 06/26/23 10:45 Blood Blood Culture - Preliminary Constitutional Constitutional: no acute distress *Routine Respiratory Exam Respiratory: Present CTA bilaterally and symmetric chest movement *Routine Cardiovascular Exam Cardiovascular: Present RRR, Normal S1 and Normal S2 *Routine Abdominal Exam Abdominal: Present soft and normoactive bowel sounds; Absent tenderness *Routine Extremities Exam Extremities: Present full ROM and normal capillary refill; Absent edema *Routine Skin Exam Skin: Present intact, dry and warm Detailed Neck Exam: Thyroids Thyroid: Absent bruit Progress Note: A&P Assessment and plan (1) STEMI (ST elevation myocardial infarction): Status: Acute (2) Hyperosmolar hyperglycemic state (HHS): Status: Acute (3) Pleural effusion on right: Status: Acute (4) Heart failure with reduced ejection fraction: Status: Acute (5) ACS (acute coronary syndrome): Status: Acute (6) UTI (urinary tract infection): Status: Acute (7) Acute hypoxic respiratory failure: Status: Acute (8) Pneumonia: Status: Acute (9) Dyspnea: Status: Acute (10) Class 3 obesity: Status: Chronic (11) Gram-positive bacteremia: Status: Acute Assessment and Plan Assessment and Plan for All Diagnoses:: Late presentation STEMI Troponin 53.[address], [address] changes noted [facility] 06/27/2023: Successful stenting of the ostial proximal mid LAD with 1 drug-eluting stent. Continue Effient 10 mg daily plus aspirin 81 mg daily. Statin on hold awaiting liver enzymes. No beta-zion at this time due to low cardiac output state. Acute HFrEF/ischemic cardiomyopathy CTA chest-small right pleural effusion with interstitial prominence throughout both lungs concerning for mild interstitial edema Echo shows an estimated EF of 25% with the septal, anteroseptal,and inferiorseptal acosta akinetic Patient has diuresed over 8 L, creatinine stable. Will discontinue milrinone drip and continue Bumex drip. Start Entresto 24/26 mg p.o. twice daily and aldactone 25mg po daily. Patient will need LifeVest prior to discharge. LifeVest placement is pending CTA chest -opacity in right upper lobe concerning for pneumonia Pulmonology is following. Will defer treatment and antibiotic selection to pulmonology. CV summary 06/29/2023: Patient is diuresing well, has diuresed over 8 L. Will discontinue milrinone drip and start patient on Entresto 24/26 mg p.o. twice daily and aldactone 25mg daily. Will continue Bumex drip.
--- NOTE | 2023-06-29 09:31 | P.PN_ITS ---
Subjective *Date: 06/29/23 *Time: 10:08 Pulmonology Exam Inpatient Vital signs and Labs for Last 24 Hours: Temp Pulse Resp BP Pulse Ox O2 Del Method O2 Flow Rate 98.8 F 100 H 24 95/66 L 98 Room Air 2 06/29/23 08:00 06/29/23 09:00 06/29/23 09:00 06/29/23 09:00 06/29/23 09:00 06/29/23 09:05 06/29/23 06:00 Laboratory Results - last 24 hr 06/28/23 05:43: Total Bilirubin 1.0, Direct Bilirubin 0.5 H, Conjugated Bilirubin 0.0, Indirect Bilirubin 0.5, Unconjugated Bilirubin 0.6, AST 121 H D, ALT 42 D, Alkaline Phosphatase 104, Total Protein 5.5 L, Albumin 3.0 L 06/28/23 11:20: POC Glucose 440 H* 06/28/23 16:26: POC Glucose 469 H* 06/28/23 17:49: Sodium 133 L, Potassium 3.1 L, Chloride 94 L, Carbon Dioxide 30, Anion Gap 12.1, BUN 25 H, Creatinine 0.90, Estimated Creat Clear 62, Estimated GFR 65, Est GFR ( Amer) 79, Glucose 343 H, Calcium 8.0 L, Magnesium 1.8 D 06/28/23 19:24: Vancomycin Trough 17.9 H 06/28/23 20:36: POC Glucose 207 H 06/29/23 01:30: Vancomycin Peak 31.4 06/29/23 05:19: WBC 7.9, RBC 4.02 L, Hgb 12.3, Hct 38.3, MCV 95.1, MCH 30.7, MCHC 32.3, RDW 13.5, Plt Count 200, MPV 9.1, Neut % (Auto) 68.6, Lymph % (Auto) 26.0, [place] % (Auto) 4.6, Eos % (Auto) 0.5, Baso % (Auto) 0.3, Neut # (Auto) 5.4, Lymph # (Auto) 2.1, [place] # (Auto) 0.4, Eos # (Auto) 0.0, Baso # (Auto) 0.0, Sodium 136, Potassium 3.2 L, Chloride 93 L, Carbon Dioxide 34 H, Anion Gap 12.2, BUN 23 H, Creatinine 0.80, Estimated Creat Clear 70, Estimated GFR 75, Est GFR ( Amer) 91, Glucose 256 H D, Calcium 7.9 L, Magnesium 2.0 D, Total Bilirubin 0.6, AST 102 H, ALT 47, Alkaline Phosphatase 89, Total Protein 6.8, Albumin 3.5 D, Globulin 3.3 H, Albumin/Globulin Ratio 1.1 06/29/23 05:40: POC Glucose 312 H* Temp Pulse Resp BP Pulse Ox O2 Del Method O2 Flow Rate 98.2 F 111 H 22 115/80 96 Nasal Cannula 4 06/27/23 08:47 06/27/23 09:30 06/27/23 09:30 06/27/23 09:30 06/27/23 08:00 06/27/23 09:44 06/27/23 09:44 Laboratory Results - last 24 hr 06/26/23 10:30: WBC 16.9 H, RBC 5.04, Hgb 15.3, Hct 50.0 H, MCV 99.2 H, MCH 30.4, MCHC 30.7 L, RDW 13.5, Plt Count 234, MPV 9.8, Neut % (Auto) 81.8 H, Lymph % (Auto) 13.5, [place] % (Auto) 3.8, Eos % (Auto) 0.6, Baso % (Auto) 0.4, Neut # (Auto) 13.8 H, Lymph # (Auto) 2.3, [place] # (Auto) 0.6, Eos # (Auto) 0.1, Baso # (Auto) 0.1, Total Counted 100, Neutrophils % (Manual) 83 H, Band Neutrophils % 5.0, Lymphocytes % (Manual) 7 L, Monocytes % (Manual) 5, Platelet Estimate Normal, RBC Morphology Normal, PT 11.5, INR 1.07, APTT 27.7, Sodium 127 L, Potassium 5.7 H, Chloride 95 L, Carbon Dioxide 20 L, Anion Gap 17.7 H, BUN 24 H, Creatinine 1.00, Estimated Creat Clear 56, Estimated GFR 58 L, Est GFR ( Amer) 70, Glucose 747 H*, Calcium 9.7, Total Bilirubin 1.5 H, AST 225 H, ALT 62, Alkaline Phosphatase 96, Troponin I 53.10 H, Total Protein 6.7, Albumin 3.8, Globulin 2.9, Albumin/Globulin Ratio 1.3, Lipase 70, Acetone Level Small 06/26/23 10:37: VBG pH 7.33, VBG pCO2 32.6 L, VBG pO2 41.2 H, VBG HCO3 16.9 L, VBG Total CO2 17.9 L, VBG O2 Saturation 70.3 H, VBG Base Excess -9.0 L, VBG Lactic Acid 3.9 H 06/26/23 10:44: Hemoglobin A1c 12.8 H, Phosphorus 5.6 H, Magnesium 1.6, Ammonia < 9 L 06/26/23 11:09: Urine Color Yellow, Urine Appearance Clear, Urine pH 6.0, Ur Specific [place] <= 1.005, Urine Protein Negative, Urine Glucose (UA) 3+, Urine Ketones 1+, Urine Blood Trace-i, Urine Nitrate Positive, Urine Bilirubin Negative, Urine Urobilinogen 0.2, Ur Leukocyte Esterase Trace, Urine RBC None, Urine WBC 3-5, Ur Squamous Epith Cells Occasional, Urine Bacteria 2+ 06/26/23 13:17: POC Glucose 452 H* 06/26/23 13:30: Sodium 132 L, Potassium 4.3 D, Chloride 96 L, Carbon Dioxide 23, Anion Gap 17.3 H, BUN 23 H, Creatinine 0.80, Estimated Creat Clear 70, Estimated GFR 75, Est GFR ( Amer) 91 D, Glucose 357 H D, Calcium 9.8, Phosphorus 4.7 H, Magnesium 1.7, Troponin I 45.40 H, Procalcitonin 0.424 06/26/23 14:04: POC Glucose 367 H* 06/26/23 14:55: Lactate 4.4 H 06/26/23 15:02: POC Glucose 304 H* 06/26/23 16:05: POC Glucose 233 H 06/26/23 17:10: Sodium 134 L, Potassium 5.0, Chloride 102, Carbon Dioxide 24, Anion Gap 13.0, BUN 23 H, Creatinine 0.80, Estimated Creat Clear 70, Estimated GFR 75, Est GFR ( Amer) 91, Glucose 112 H D, Lactate 5.8 H, Calcium 9.7, Phosphorus 3.7, Magnesium 1.7, Troponin I 49.20 H 06/26/23 17:16: POC Glucose 148 H 06/26/23 17:56: POC Glucose 156 H 06/26/23 18:10: APTT 30.6 06/26/23 18:51: POC Glucose 125 H 06/26/23 20:05: POC Glucose 162 H 06/26/23 21:19: POC Glucose 171 H 06/26/23 21:30: Sodium 135 L, Potassium 5.4 H, Chloride 111 H, Carbon Dioxide 18 L, Anion Gap 11.4, BUN 23 H, Creatinine 0.70, Estimated Creat Clear 80, Estimated GFR 88, Est GFR ( Amer) 106, Glucose 162 H D, Calcium 9.3, Phosphorus 3.7, Magnesium 1.6 06/26/23 22:18: POC Glucose 164 H 06/27/23 00:42: POC Glucose 176 H 06/27/23 02:00: Troponin I 50.30 H 06/27/23 02:30: APTT 39.3 H 06/27/23 08:10: POC Glucose 313 H* I & O for Labs for Last 24 Hours: Intake & Output 06/26/23 06/27/23 06/28/23 06/29/23 23:59 23:59 23:59 23:59 Intake Total 1050.131 / 2898.393 3800.676 / 2021.676 2555.589 / 2555.589 844.123 / 844.123 Output Total 0 / 0 5316 / 5783 6549 / 6857 2606 / 2606 Balance 1050.131 / 1050.131 -3294.324 / -3761.324 -3993.411 / -4301.411 - 1761.877 / -1761.877 Weight 278 lb 277 lb 15.341 oz 267 lb 4.8 oz 264 lb 8.875 oz Intake & Output 06/24/23 06/25/23 06/26/23 06/27/23 23:59 23:59 23:59 23:59 Intake Total 1050.131 / 0691.565 3714 / 1108 Output Total 0 / 0 1050 / 1050 Balance 1050.131 / 1050.131 58 / 58 Weight 278 lb 277 lb 15.341 oz Microbiology Reports for the Last 24 Hours: Microbiology 06/26/23 10:45 Blood Blood Culture - Preliminary Constitutional: Present moderate distress Head: Present normocephalic and atraumatic ENT: Present normal exam, normal oropharynx and mucous membranes moist Neck: Present normal inspection and full ROM Respiratory: Present respiratory distress, crackles, diminished air movement and able to speak in complete sentences; Absent prolonged expiratory phase, rhonchi or wheezes Cardiac: Present S1/S2, Tachycardia and radial pulses present GI: Present soft and distention; Absent tenderness or guarding Rectal (female): Present deferred (female): Present deferred Skin: Present intact; Absent cyanosis or jaundice Neuro: Present alert, awake and oriented x 3 Extremities: Present normal inspection; Absent clubbing or cyanosis Psychiatric: Present normal affect and cooperative Assessment and Plan *Assessment and plan (1) Acute hypoxic respiratory failure: Status: Acute Category: Medical Code(s): J96.01 - Acute respiratory failure with hypoxia (2) Pneumonia: Status: Acute Category: Medical Code(s): J18.9 - Pneumonia, unspecified organism (3) Pleural effusion on right: Status: Acute Category: Medical Code(s): J90 - Pleural effusion, not elsewhere classified Plan Ms. Denton is a 53-year-old female with no significant smoking history, no prior respiratory complaints, not using oxygen at baseline presented to the ER with worsening respiratory distress and chest discomfort and pulmonary was called for further evaluation and management. Patient is patient is a scheduled on resident, found to be hypoxic with O2 sats at 50% initially needing nonrebreather to get her sats to 90% and above. CTA upon admission reviewed, no evidence of pulmonary embolism, small right pleural effusion along with groundglass opacities. No dense consolidation/airspace disease appreciated. Afebrile afebrile. Neutrophilic leukocytosis upon admission. Tachycardia. VBG upon admission did not show any evidence of hypoxic/hypercarbic respiratory failure. Patient glucose was significantly elevated upon admission with no evidence of acidosis and she was initiated on HHS protocol. Patient was also initiated on heparin drip for NSTEMI. Cardiology following. Initial Examination patient appeared to be in moderate respiratory distress. Bibasilar crackles on auscultation. No significant wheezing appreciated. Comprehensive respiratory viral PCR panel negative. Nasal MRSA PCR negative Interval update: No acute respiratory vents overnight. Continued to remain on room air. Improved leukocytosis. Improving transaminitis. Completing 3-day course of ceftriaxone erythromycin. Continue to receive vancomycin for presumed bacteremia -blood culture from 1 set of aerobic bottle showing gram-positive cocci. No PCR testing available for speciation/mecA gene status. Repeat cultures pending Plan: Duo Nebs Q 6 PRN Continue NC oxygen supplementation ONLY as needed to maintain O2 sat goal of 90 to 95% # Thank you for involving pulmonary in this patient care.
[2023-06-29] MEDS: BUMETANIDE 10 MG in 0.9 % SODIUM CHLORIDE 60 ML IV ×2 (09:44→22:37)
[2023-06-29] MEDS: VANCOMYCIN HCL 2,000 MG in 0.9 % SODIUM CHLORIDE 250 ML 125 MG IV ×2 (09:44→20:51)
[2023-06-29 11:40] LABS: POC Glucose,Bedside 348 (70-110)
--- NOTE | 2023-06-29 12:51 | P.PN_ITS ---
Subjective *Date: 06/29/23 *Time: 14:52 Interval history: Patient on room air this morning. Afebrile. Hemodynamically stable. Weaned off milrinone. Diuresing well. No nausea or vomiting. Tolerating p.o. intake. Glucose still elevated, approximately 250 on morning labs. Medical Exam Vital signs and Labs for Last 24 Hours: Vital Signs Temp Pulse Pulse Resp BP Pulse Ox O2 Del Method 06/29/23 12:00 97.6 F 06/29/23 12:00 101 H 26 H 109/67 L 95 Room Air 06/29/23 11:00 Room Air 06/29/23 10:00 96 H 24 98/67 L 95 Room Air 06/29/23 09:05 Room Air 06/29/23 09:00 100 H 24 95/66 L 98 Room Air 06/29/23 08:00 98.8 F 06/29/23 08:00 Room Air 06/29/23 08:00 102 H 22 95/51 L 95 Room Air 06/29/23 06:00 127 H 24 106/59 L 96 Nasal Cannula 06/29/23 05:00 102 H 25 H 96/52 L 98 Nasal Cannula 06/29/23 05:00 Nasal Cannula 06/29/23 04:00 100 H 06/29/23 04:00 98.9 F 94 H 24 91/49 L 98 Nasal Cannula 06/29/23 04:00 Nasal Cannula 06/29/23 03:00 Nasal Cannula 06/29/23 03:00 96 H 22 94 L Nasal Cannula 06/29/23 02:00 104 H 25 H 87/64 L 95 Nasal Cannula 06/29/23 01:00 113 H 20 107/65 L 94 L Nasal Cannula 06/29/23 01:00 Nasal Cannula 06/29/23 00:00 107 H 06/29/23 00:00 Nasal Cannula 06/29/23 00:00 98.9 F 113 H 28 H 107/50 L 94 L Nasal Cannula 06/28/23 23:00 104 H 18 100/38 L 94 L Nasal Cannula 06/28/23 23:00 Nasal Cannula 06/28/23 22:00 107 H 20 149/74 H 97 Nasal Cannula 06/28/23 21:00 Nasal Cannula 06/28/23 21:00 111 H 25 H 123/51 L 97 Nasal Cannula 06/28/23 20:00 Nasal Cannula 06/28/23 20:00 98.7 F 115 H 25 H 109/55 L 95 Nasal Cannula 06/28/23 20:00 120 H 06/28/23 19:00 112 H 26 H 102/64 L 93 L Nasal Cannula 06/28/23 18:37 Room Air 06/28/23 18:00 118 H 27 H 104/52 L 109 H Room Air 06/28/23 17:00 Room Air 06/28/23 17:00 110 H 24 134/63 98 Nasal Cannula 06/28/23 16:00 110 H 06/28/23 16:00 Room Air 06/28/23 16:00 99.2 F 06/28/23 15:00 Room Air 06/28/23 15:00 114 H 22 119/70 94 L Room Air 06/28/23 13:28 Room Air 06/28/23 13:00 117 H 24 99/58 L 95 Room Air 06/28/23 13:00 Room Air O2 Flow Rate 06/29/23 12:00 06/29/23 12:00 06/29/23 11:00 06/29/23 10:00 06/29/23 09:05 06/29/23 09:00 06/29/23 08:00 06/29/23 08:00 06/29/23 08:00 06/29/23 06:00 2 06/29/23 05:00 2 06/29/23 05:00 06/29/23 04:00 06/29/23 04:00 2 06/29/23 04:00 2 06/29/23 03:00 2 06/29/23 03:00 2 06/29/23 02:00 2 06/29/23 01:00 2 06/29/23 01:00 06/29/23 00:00 06/29/23 00:00 2 06/29/23 00:00 2 06/28/23 23:00 2 06/28/23 23:00 06/28/23 22:00 2 06/28/23 21:00 06/28/23 21:00 2 06/28/23 20:00 2 06/28/23 20:00 2 06/28/23 20:00 06/28/23 19:00 2 06/28/23 18:37 06/28/23 18:00 06/28/23 17:00 06/28/23 17:00 2 06/28/23 16:00 06/28/23 16:00 06/28/23 16:00 06/28/23 15:00 06/28/23 15:00 06/28/23 13:28 06/28/23 13:00 06/28/23 13:00 Intake and Output 06/28/23 06/29/23 06/29/23 23:59 07:59 15:59 Intake Total 200 / 2555.589 744.123 / 1317.537 573.414 / 1317.537 Output Total 1840 / 6857 2156 / 2856 700 / 2856 Balance -1640 / -4301.411 -1411.877 / -1538.463 -126.586 / -1538.463 Intake: Intake, Oral Amount 350 / 350 Intake, Total IV Amount 200 / 1595.589 744.123 / 967.537 223.414 / 967.537 Bumetanide 10 mg In 0.9 % 235 / 235 Sodium Chloride 60 ml @ 1 MG/HR 10 mls/hr IV .Q10H RACHEL Rx#: [id number] Cefepime HCl 2 gm In 0.9 % 100 / 300 100 / 200 100 / 200 Sodium Chloride 100 ml @ 200 mls/hr IV Q8H RACHEL Rx#:[id number] Milrinone Lactate 20 mg In 0.9 62 / 62 % Sodium Chloride 80 ml @ 0.125 MCG/KG/MIN 4.728 mls/hr IV . [id number] RACHEL Rx#:[id number] Vancomycin HCl 2,000 mg In 0.9 250 / 250 % Sodium Chloride 250 ml @ 125 mls/hr IV Q12H RACHEL Rx#:[id number] Output: Output, Urine Amount 1540 / 3882 2156 / 2156 0 / 2156 Output, Urine Amount (Catheter) 300 / 2975 700 / 700 Beckham 300 / 2975 700 / 700 Other: Number of Unmeasured Voids 0 1 Number of Bowel Movements 1 Weight 120.701 kg 120 kg Patient Weight 06/29/23 23:59 Weight 120 kg Laboratory Results - last 24 hr 06/28/23 16:26: POC Glucose 469 H* 06/28/23 17:49: Sodium 133 L, Potassium 3.1 L, Chloride 94 L, Carbon Dioxide 30, Anion Gap 12.1, BUN 25 H, Creatinine 0.90, Estimated Creat Clear 62, Estimated GFR 65, Est GFR ( Amer) 79, Glucose 343 H, Calcium 8.0 L, Magnesium 1.8 D 06/28/23 19:24: Vancomycin Trough 17.9 H 06/28/23 20:36: POC Glucose 207 H 06/29/23 01:30: Vancomycin Peak 31.4 06/29/23 05:19: WBC 7.9, RBC 4.02 L, Hgb 12.3, Hct 38.3, MCV 95.1, MCH 30.7, MCHC 32.3, RDW 13.5, Plt Count 200, MPV 9.1, Neut % (Auto) 68.6, Lymph % (Auto) 26.0, [place] % (Auto) 4.6, Eos % (Auto) 0.5, Baso % (Auto) 0.3, Neut # (Auto) 5.4, Lymph # (Auto) 2.1, [place] # (Auto) 0.4, Eos # (Auto) 0.0, Baso # (Auto) 0.0, Sodium 136, Potassium 3.2 L, Chloride 93 L, Carbon Dioxide 34 H, Anion Gap 12.2, BUN 23 H, Creatinine 0.80, Estimated Creat Clear 70, Estimated GFR 75, Est GFR ( Amer) 91, Glucose 256 H D, Calcium 7.9 L, Magnesium 2.0 D, Total Bilirubin 0.6, AST 102 H, ALT 47, Alkaline Phosphatase 89, Total Protein 6.8, Albumin 3.5 D, Globulin 3.3 H, Albumin/Globulin Ratio 1.1 06/29/23 05:40: POC Glucose 312 H* 06/29/23 11:21: POC Glucose 348 H* I & O for Labs for Last 24 Hours: Intake & Output 06/26/23 06/27/23 06/28/23 06/29/23 23:59 23:59 23:59 23:59 Intake Total 1050.131 / 7124.825 1349.676 / 2021.676 2555.589 / 2555.589 1317.537 / 1317.537 Output Total 0 / 0 5316 / 5783 6549 / 6857 2856 / 2856 Balance 1050.131 / 1050.131 -3294.324 / -3761.324 -3993.411 / -4301.411 - 1538.463 / -1538.463 Weight 126.099 kg 126.08 kg 121.245 kg 120 kg Microbiology Reports for the Last 24 Hours: Microbiology 06/27/23 10:24 Nose MRSA Culture - Final Negative 06/26/23 10:45 Blood Blood Culture - Preliminary Constitutional: Present no acute distress, morbidly obese, chronically ill appearing and cooperative Head: Present atraumatic and normocephalic ENT: Present normal exam Comment:: Poor dentition Respiratory: Present normal respiratory effort; Absent rhonchi, wheezes or crackles Cardiac: Present Regular Rhythm and Tachycardia GI: Present soft and normal bowel sounds; Absent distention or tenderness Extremities: Present normal inspection and full ROM; Absent edema Skin: Present intact; Absent erythema Neuro: Present Grossly Intact, alert, awake, oriented x 3 and moves all extremities Assessment and Plan *Assessment and plan (1) STEMI (ST elevation myocardial infarction): Status: Acute Category: Medical Code(s): I21.3 - ST elevation (STEMI) myocardial infarction of unspecified site (2) Hyperosmolar hyperglycemic state (HHS): Status: Acute Category: Medical Code(s): E11.00 - Type 2 diabetes mellitus with hyperosmolarity without nonketotic h yperglycemic-hyperosmolar coma (NKHHC) (3) Pleural effusion on right: Status: Acute Category: Medical Code(s): J90 - Pleural effusion, not elsewhere classified (4) Heart failure with reduced ejection fraction: Status: Acute Category: Medical Code(s): I50.20 - Unspecified systolic (congestive) heart failure (5) ACS (acute coronary syndrome): Status: Acute Category: Medical Code(s): I24.9 - Acute ischemic heart disease, unspecified (6) UTI (urinary tract infection): Status: Acute Qualifiers: Hematuria presence: without hematuria Urinary tract infection type: site unspecified Qualified Code(s): N39.0 - Urinary tract infection, site not specified Category: Medical Code(s): N39.0 - Urinary tract infection, site not specified (7) Acute hypoxic respiratory failure: Status: Acute Category: Medical Code(s): J96.01 - Acute respiratory failure with hypoxia (8) Pneumonia: Status: Acute Category: Medical Code(s): J18.9 - Pneumonia, unspecified organism (9) Dyspnea: Status: Acute Category: Medical Code(s): R06.00 - Dyspnea, unspecified (10) Class 3 obesity: Status: Chronic Category: Medical Code(s): E66.01 - Morbid (severe) obesity due to excess calories (11) Gram-positive bacteremia: Status: Acute Category: Medical Code(s): R78.81 - Bacteremia Plan Patient is a 53-year-old female who presents to the hospital due to complaints of shortness of breath dyspnea. Patient has past medical history of hypertension hyperlipidemia diabetes mellitus, CAD. According to patient she had chest pains on Tuesday which resolved however she started feeling short of breath after that. Patient mentions she has not been compliant with diabetic medications. Patient admitted for [facility], late presentation of STEMI, respiratory failure. Found to be in cardiogenic shock with acute heart failure with reduced ejection fraction and pulmonary edema. Her HHS is improving. Status post cath on 06/26 with successful stenting. De-escalate care this morning to stepdown this patient is off milrinone drip. Continuing Bumex drip. Improving clinically. Anticipate discharge in the coming days. Pulmonology and cardiology assisting with care. Problems addressed as follows: HHS/DKA Uncontrolled diabetes - A1c 12.8 -Tolerating basal bolus regimen. Increase Lantus to 45 units HS. - Continue sliding scale as needed, required 67 units yesterday -Adjust needs pending daily insulin requirements. Morning glucose of 250, goal less than 150 Late presentation of STEMI Acute heart failure with reduced ejection fraction/ischemic cardiomyopathy Pulmonary edema -Cardiology consulted, assisting with care. Discussed case today. Continue Bumex drip as patient is still frankly volume overloaded. No bump in creatinine yet. Creatinine 0.8, BUN 23. Repeat CBC, CMP, magnesium ordered for the morning. -Negative almost 8 L -Potassium low at 3.2, will replace orally. -Troponin peaked at 53 - Left heart cath 06/27/2023: Successful stenting of the ostial proximal mid LAD with 1 drug-eluting stent. - Continue Effient 10 mg daily plus aspirin 81 mg daily. Statin on hold awaiting liver enzymes. No beta-zion at this time due to low cardiac output state. Initiate Entresto 24/26 mg twice daily. Initiate Aldactone 25 mg daily -Liver enzymes improving -Formal echo read with a EF of 25%. Will necessitate LifeVest -Discontinue Beckham Bacteremia: - Blood cultures positive for gram-positive cocci. Unclear the significance. In the setting of her presentation with DKA, STEMI, hypotension, will continue vancomycin IV. Monitoring for toxicity. -Repeat blood cultures pending Hypothyroid: Continue levothyroxine 175 mcg daily Suspected pneumonia versus pulmonary edema -CT of chest with right upper lobe opacity. Pulmonology was consulted. Will continue ceftriaxone and azithromycin to cover for community-acquired pneumonia for 3 days. -Discussed case with pulmonology, wean oxygen as tolerated. Weaned to room air today. Continue DuoNebs every 6 hours as needed Full code Diabetic diet DVT prophylaxis-heparin
[2023-06-29] MEDS: SPIRONOLACTONE 25MG TABLET 25 MG PO (13:27)
[2023-06-29 16:06] LABS: POC Glucose,Bedside 329 (70-110)
--- NOTE | 2023-06-29 16:08 | PC.NURSE ---
patient had 2 unmeasured voids. VS stable and patient remained on room air. Lung sounds clear. FSBS in 300 ranges during the day, covered with sliding scale insulin.
[2023-06-29 20:06] LABS: POC Glucose,Bedside 296 (70-110)
[2023-06-29] MEDS: PRAVASTATIN 40MG TAB 40 MG PO (20:51)
[2023-06-29] MEDS: SACUBITRIL/VALSARTAN 24-26MG TABLET 1 EACH PO (20:51)
[2023-06-29] MEDS: SENNOSIDES 8.6MG/DOCUSATE 50MG TABLET 1 TAB PO (20:51)
[2023-06-29] MEDS: INSULIN GLARGINE 100 UNITS/ML 3ML FLEXPEN 45 UNIT SQ (20:52)
[2023-06-30] VITALS (9 sets, daily range): BP systolic 81–105; BP diastolic 47–65; PULSE 80–165; RESP 16–20; TEMP 36.7–36.9; O2SAT 95–97; BMI 43.7
--- NOTE | 2023-06-30 01:01 | ECG_ITS ---
APPROVED REPORT Exam: Resting ECG HR:90 bpm ECG Measurements Heart Rate 90 AXES HI 145 P 56 QRSd 98 QRS 258 QT 405 T -30 QTc 453 Conclusion SINUS RHYTHM ANTEROLATERAL MYOCARDIAL INFARCTION , PROBABLY RECENT [40+ ms Q WAVE IN I/aVL/V3-V6] ACUTE NH UNCONFIRMED REPORT septal q waves, ST elevation in I,AVL, V2 concerning for recent/evolving NH Electronically signed by : OLEKSANDR SHAFER, 06/30/2023 05:16:27
--- NOTE | 2023-06-30 04:14 | PC.NURSE ---
pt. has rested well this shift, no c/o pain, ambulates in room with assistance, no acute changes, call button is in reach
[2023-06-30] MEDS: LEVOTHYROXINE 175MCG (0.175MG) TAB 175 MCG PO (06:08)
[2023-06-30] MEDS: humaLOG 100 UNITS/ML 3ML VIAL (SSI) SQ (06:08)
[2023-06-30 06:22] LABS: Basophils # 0.1 K/mm3 (0-0.2); Basophils % 0.7 % (0.1-2.0); Eosinophils # 0.1 K/mm3 (0.0-0.4); Hematocrit 39.4 % (37.0-47.0); Hemoglobin 12.9 g/dL (12.2-16.2); Lymphocytes # 2.1 K/mm3 (0.7-4.5); Lymphocytes % 26.3 % (10-50); Mean Corpuscular HGB Conc 32.8 g/dL (31.8-35.4); Mean Corpuscular Hemoglobin 30.4 pg (27.0-31.2); Mean Corpuscular Volume 92.7 fl (81-99); Mean Platelet Volume 9.1 fl (7.4-10.4); Monocytes # 0.5 K/mm3 (0.1-1.0); Monocytes % 5.9 % (1.7-9.3); Neutrophils # 5.4 K/mm3 (1.8-7.8); Neutrophils % 66.2 % (37.0-80.0); Platelet Count 219 K/mm3 (142-424); Red Blood Count 4.24 M/mm3 (4.20-5.40); Red Cell Distribution Width 13.7 % (11.5-17.5); White Blood Count 8.1 K/mm3 (4.8-10.8)
[2023-06-30 06:50] LABS: POC Glucose,Bedside 163 (70-110)
[2023-06-30 07:15] LABS: Alanine Aminotransferase 46 U/L (12-78); Albumin Level 3.4 g/dl (3.5-5.0); Anion Gap 12.4 mEq/L (5-15); Aspartate Amino Transferase 79 U/L (14-36); Bilirubin,Total 0.5 mg/dl (0.2-1.3); Blood Urea Nitrogen 22 mg/dl (7-17); Calcium 8.2 mg/dl (8.4-10.2); Carbon Dioxide 36 mmol/L (22.0-30.0); Chloride 91 mmol/L (98-107); Creatinine Clearance Estimated 70 mL/min (50-200); Estimated Glomerular Filt Rate 75 ml/min (>60); GFR (African American) 91 ML/MIN (>60); Globulin 2.9 g/dL (1.3-3.2); Glucose 146 mg/dl (74-100); Potassium 3.4 mmoL/L (3.5-5.1); Sodium 136 mmol/L (136-145); Total Protein,Serum 6.3 g/dl (6.3-8.2)
[2023-06-30 07:16] LABS: Albumin/Globulin Ratio 1.2 (1.1-1.8); Alkaline Phosphatase 88 U/L (38-126)
[2023-06-30] MEDS: buPROPion HCl SR 150MG TAB 150 MG PO (08:40)
[2023-06-30] MEDS: POTASSIUM CHLORIDE 20MEQ TAB 20 MEQ PO ×3 (08:40→21:28)
[2023-06-30] MEDS: CITALOPRAM 40MG TABLET 40 MG PO (08:40)
[2023-06-30] MEDS: PRASUGREL 10MG TAB 10 MG PO (08:40)
[2023-06-30] MEDS: SPIRONOLACTONE 25MG TABLET 25 MG PO (08:40)
[2023-06-30] MEDS: SACUBITRIL/VALSARTAN 24-26MG TABLET 1 EACH PO (08:40)
[2023-06-30] MEDS: ASPIRIN EC 81MG TABLET 81 MG PO (08:40)
[2023-06-30] MEDS: VANCOMYCIN HCL 2,000 MG in 0.9 % SODIUM CHLORIDE 250 ML 125 MG IV ×2 (08:40→22:22)
[2023-06-30] MEDS: EMPAGLIFLOZIN 10MG TABLET 10 MG PO (08:41)
[2023-06-30] MEDS: SENNOSIDES 8.6MG/DOCUSATE 50MG TABLET 1 TAB PO ×2 (08:41→21:29)
[2023-06-30] MEDS: BUMETANIDE 1 MG TABLET PO (08:41)
[2023-06-30 08:52] LABS: Magnesium 1.9 mg/dl (1.6-2.3)
[2023-06-30] MEDS: SODIUM CHLORIDE 3% 15ML NEB 3 ML IH (09:52)
[2023-06-30 11:26] LABS: POC Glucose,Bedside 198 (70-110)
[2023-06-30] MEDS: CARVEDILOL 3.125MG TABLET 3.125 MG PO (11:30)
--- NOTE | 2023-06-30 11:44 | EXP.PULM.PN ---
Subjective *Date: 06/30/23 *Time: 11:44 Interval history: No acute respiratory vents overnight. Patient denies any new complaints. Pulmonology Exam Inpatient Vital signs and Labs for Last 24 Hours: Temp Pulse Resp BP Pulse Ox O2 Del Method O2 Flow Rate 98.5 F 83 16 100/62 L 95 Room Air 2 06/30/23 08:00 06/30/23 09:53 06/30/23 09:53 06/30/23 08:00 06/30/23 09:53 06/30/23 09:53 06/29/23 06:00 Laboratory Results - last 24 hr 06/29/23 15:56: POC Glucose 329 H* 06/29/23 19:58: POC Glucose 296 H 06/30/23 05:37: POC Glucose 163 H 06/30/23 05:40: WBC 8.1, RBC 4.24, Hgb 12.9, Hct 39.4, MCV 92.7, MCH 30.4, MCHC 32.8, RDW 13.7, Plt Count 219, MPV 9.1, Neut % (Auto) 66.2, Lymph % (Auto) 26.3, [place] % (Auto) 5.9, Eos % (Auto) 1.0, Baso % (Auto) 0.7, Neut # (Auto) 5.4, Lymph # (Auto) 2.1, [place] # (Auto) 0.5, Eos # (Auto) 0.1, Baso # (Auto) 0.1, Sodium 136, Potassium 3.4 L, Chloride 91 L, Carbon Dioxide 36 H, Anion Gap 12.4, BUN 22 H, Creatinine 0.80, Estimated Creat Clear 70, Estimated GFR 75, Est GFR ( Amer) 91, Glucose 146 H, Calcium 8.2 L, Magnesium 1.9, Total Bilirubin 0.5, AST 79 H, ALT 46, Alkaline Phosphatase 88, Total Protein 6.3, Albumin 3.4 L, Globulin 2.9, Albumin/Globulin Ratio 1.2 06/30/23 11:18: POC Glucose 198 H Temp Pulse Resp BP Pulse Ox O2 Del Method O2 Flow Rate 98.2 F 111 H 22 115/80 96 Nasal Cannula 4 06/27/23 08:47 06/27/23 09:30 06/27/23 09:30 06/27/23 09:30 06/27/23 08:00 06/27/23 09:44 06/27/23 09:44 Laboratory Results - last 24 hr 06/26/23 10:30: WBC 16.9 H, RBC 5.04, Hgb 15.3, Hct 50.0 H, MCV 99.2 H, MCH 30.4, MCHC 30.7 L, RDW 13.5, Plt Count 234, MPV 9.8, Neut % (Auto) 81.8 H, Lymph % (Auto) 13.5, [place] % (Auto) 3.8, Eos % (Auto) 0.6, Baso % (Auto) 0.4, Neut # (Auto) 13.8 H, Lymph # (Auto) 2.3, [place] # (Auto) 0.6, Eos # (Auto) 0.1, Baso # (Auto) 0.1, Total Counted 100, Neutrophils % (Manual) 83 H, Band Neutrophils % 5.0, Lymphocytes % (Manual) 7 L, Monocytes % (Manual) 5, Platelet Estimate Normal, RBC Morphology Normal, PT 11.5, INR 1.07, APTT 27.7, Sodium 127 L, Potassium 5.7 H, Chloride 95 L, Carbon Dioxide 20 L, Anion Gap 17.7 H, BUN 24 H, Creatinine 1.00, Estimated Creat Clear 56, Estimated GFR 58 L, Est GFR ( Amer) 70, Glucose 747 H*, Calcium 9.7, Total Bilirubin 1.5 H, AST 225 H, ALT 62, Alkaline Phosphatase 96, Troponin I 53.10 H, Total Protein 6.7, Albumin 3.8, Globulin 2.9, Albumin/Globulin Ratio 1.3, Lipase 70, Acetone Level Small 06/26/23 10:37: VBG pH 7.33, VBG pCO2 32.6 L, VBG pO2 41.2 H, VBG HCO3 16.9 L, VBG Total CO2 17.9 L, VBG O2 Saturation 70.3 H, VBG Base Excess -9.0 L, VBG Lactic Acid 3.9 H 06/26/23 10:44: Hemoglobin A1c 12.8 H, Phosphorus 5.6 H, Magnesium 1.6, Ammonia < 9 L 06/26/23 11:09: Urine Color Yellow, Urine Appearance Clear, Urine pH 6.0, Ur Specific [place] <= 1.005, Urine Protein Negative, Urine Glucose (UA) 3+, Urine Ketones 1+, Urine Blood Trace-i, Urine Nitrate Positive, Urine Bilirubin Negative, Urine Urobilinogen 0.2, Ur Leukocyte Esterase Trace, Urine RBC None, Urine WBC 3-5, Ur Squamous Epith Cells Occasional, Urine Bacteria 2+ 06/26/23 13:17: POC Glucose 452 H* 06/26/23 13:30: Sodium 132 L, Potassium 4.3 D, Chloride 96 L, Carbon Dioxide 23, Anion Gap 17.3 H, BUN 23 H, Creatinine 0.80, Estimated Creat Clear 70, Estimated GFR 75, Est GFR ( Amer) 91 D, Glucose 357 H D, Calcium 9.8, Phosphorus 4.7 H, Magnesium 1.7, Troponin I 45.40 H, Procalcitonin 0.424 06/26/23 14:04: POC Glucose 367 H* 06/26/23 14:55: Lactate 4.4 H 06/26/23 15:02: POC Glucose 304 H* 06/26/23 16:05: POC Glucose 233 H 06/26/23 17:10: Sodium 134 L, Potassium 5.0, Chloride 102, Carbon Dioxide 24, Anion Gap 13.0, BUN 23 H, Creatinine 0.80, Estimated Creat Clear 70, Estimated GFR 75, Est GFR ( Amer) 91, Glucose 112 H D, Lactate 5.8 H, Calcium 9.7, Phosphorus 3.7, Magnesium 1.7, Troponin I 49.20 H 06/26/23 17:16: POC Glucose 148 H 06/26/23 17:56: POC Glucose 156 H 06/26/23 18:10: APTT 30.6 06/26/23 18:51: POC Glucose 125 H 06/26/23 20:05: POC Glucose 162 H 06/26/23 21:19: POC Glucose 171 H 06/26/23 21:30: Sodium 135 L, Potassium 5.4 H, Chloride 111 H, Carbon Dioxide 18 L, Anion Gap 11.4, BUN 23 H, Creatinine 0.70, Estimated Creat Clear 80, Estimated GFR 88, Est GFR ( Amer) 106, Glucose 162 H D, Calcium 9.3, Phosphorus 3.7, Magnesium 1.6 06/26/23 22:18: POC Glucose 164 H 06/27/23 00:42: POC Glucose 176 H 06/27/23 02:00: Troponin I 50.30 H 06/27/23 02:30: APTT 39.3 H 06/27/23 08:10: POC Glucose 313 H* I & O for Labs for Last 24 Hours: Intake & Output 06/27/23 06/28/23 06/29/23 06/30/23 23:59 23:59 23:59 23:59 Intake Total 2021.676 / 2021.676 2555.589 / 2555.589 2207.537 / 2207.537 890 / 890 Output Total 5316 / 5783 6549 / 6857 2856 / 2856 0 / 0 Balance -3294.324 / -3761.324 -3993.411 / -4301.411 -648.463 / -648.463 890 / 890 Weight 277 lb 15.341 oz 267 lb 4.8 oz 264 lb 8.875 oz 262 lb 7 oz Intake & Output 06/24/23 06/25/23 06/26/23 06/27/23 23:59 23:59 23:59 23:59 Intake Total 1050.131 / 5983.793 5339 / 1108 Output Total 0 / 0 1050 / 1050 Balance 1050.131 / 1050.131 58 / 58 Weight 278 lb 277 lb 15.341 oz Microbiology Reports for the Last 24 Hours: Microbiology 06/28/23 19:34 Blood Blood Culture - Preliminary No growth. 06/28/23 19:24 Blood Blood Culture - Preliminary No growth. 06/26/23 10:45 Blood Blood Culture - Preliminary 06/26/23 10:44 Blood Blood Culture - Preliminary 06/26/23 11:09 Urine,Clean Catch Urine Culture - Preliminary 06/27/23 10:24 Nose MRSA Culture - Final Negative Constitutional: Present moderate distress Head: Present normocephalic and atraumatic ENT: Present normal exam, normal oropharynx and mucous membranes moist Neck: Present normal inspection and full ROM Respiratory: Present respiratory distress, crackles, diminished air movement and able to speak in complete sentences; Absent prolonged expiratory phase, rhonchi or wheezes Cardiac: Present S1/S2, Tachycardia and radial pulses present GI: Present soft and distention; Absent tenderness or guarding Rectal (female): Present deferred (female): Present deferred Skin: Present intact; Absent cyanosis or jaundice Neuro: Present alert, awake and oriented x 3 Extremities: Present normal inspection; Absent clubbing or cyanosis Psychiatric: Present normal affect and cooperative Assessment and Plan *Assessment and plan (1) Acute hypoxic respiratory failure: Status: Acute Category: Medical Code(s): J96.01 - Acute respiratory failure with hypoxia (2) Pneumonia: Status: Acute Category: Medical Code(s): J18.9 - Pneumonia, unspecified organism (3) Pleural effusion on right: Status: Acute Category: Medical Code(s): J90 - Pleural effusion, not elsewhere classified Plan Ms. Denton is a 53-year-old female with no significant smoking history, no prior respiratory complaints, not using oxygen at baseline presented to the ER with worsening respiratory distress and chest discomfort and pulmonary was called for further evaluation and management. Patient is patient is a scheduled on resident, found to be hypoxic with O2 sats at 50% initially needing nonrebreather to get her sats to 90% and above. CTA upon admission reviewed, no evidence of pulmonary embolism, small right pleural effusion along with groundglass opacities. No dense consolidation/airspace disease appreciated. Afebrile afebrile. Neutrophilic leukocytosis upon admission. Tachycardia. VBG upon admission did not show any evidence of hypoxic/hypercarbic respiratory failure. Patient glucose was significantly elevated upon admission with no evidence of acidosis and she was initiated on HHS protocol. Patient was also initiated on heparin drip for NSTEMI. Cardiology following. Initial Examination patient appeared to be in moderate respiratory distress. Bibasilar crackles on auscultation. No significant wheezing appreciated. Comprehensive respiratory viral PCR panel negative. Nasal MRSA PCR negative Interval update: Patient continued to remain on room air. Not needing oxygen supplementation even at night. Denies any new respiratory complaints. Stable respiratory status. Auscultation clear breath sounds. Completed 3-day course of antibiotics for CAP. Repeat blood cultures negative. Initial blood cultures 1 set growing Staph hominis pending sensitivities. Continue to receive vancomycin. Plan: Duo Nebs Q 6 PRN Continue NC oxygen supplementation ONLY as needed to maintain O2 sat goal of 90 to 95% # Thank you for involving pulmonary in this patient care. Pulmonary will sign off at this point of time. Will follow the patient in 3 to 4 weeks post discharge. Please call pulmonary with any further questions or concerns.
--- NOTE | 2023-06-30 12:25 | P.PN_ITS ---
Subjective Subjective Date: 06/30/23 Time: 07:30 Principal diagnosis: Late presentation STEMI Interval history: Doing well, has diuresed 10 Liters. Labs remain stable. Exam Data for Last 24 hours Vital signs and Labs for Last 24 Hours: Temp Pulse Resp BP Pulse Ox O2 Del Method O2 Flow Rate 98.5 F 83 16 100/62 L 95 Room Air 2 06/30/23 08:00 06/30/23 09:53 06/30/23 09:53 06/30/23 08:00 06/30/23 09:53 06/30/23 09:53 06/29/23 06:00 Laboratory Results - last 24 hr 06/29/23 15:56: POC Glucose 329 H* 06/29/23 19:58: POC Glucose 296 H 06/30/23 05:37: POC Glucose 163 H 06/30/23 05:40: WBC 8.1, RBC 4.24, Hgb 12.9, Hct 39.4, MCV 92.7, MCH 30.4, MCHC 32.8, RDW 13.7, Plt Count 219, MPV 9.1, Neut % (Auto) 66.2, Lymph % (Auto) 26.3, [place] % (Auto) 5.9, Eos % (Auto) 1.0, Baso % (Auto) 0.7, Neut # (Auto) 5.4, Lymph # (Auto) 2.1, [place] # (Auto) 0.5, Eos # (Auto) 0.1, Baso # (Auto) 0.1, Sodium 136, Potassium 3.4 L, Chloride 91 L, Carbon Dioxide 36 H, Anion Gap 12.4, BUN 22 H, Creatinine 0.80, Estimated Creat Clear 70, Estimated GFR 75, Est GFR ( Amer) 91, Glucose 146 H, Calcium 8.2 L, Magnesium 1.9, Total Bilirubin 0.5, AST 79 H, ALT 46, Alkaline Phosphatase 88, Total Protein 6.3, Albumin 3.4 L, Globulin 2.9, Albumin/Globulin Ratio 1.2 06/30/23 11:18: POC Glucose 198 H I & O for Last 24 hours: Intake & Output 06/27/23 06/28/23 06/29/23 06/30/23 23:59 23:59 23:59 23:59 Intake Total 2020.2020.6 2555.589 / 2555.589 2207.537 / 2207.537 890 / 890 Output Total 5316 / 5783 6549 / 6857 2856 / 2856 0 / 0 Balance -3294.324 / -3761.324 -3993.411 / -4301.411 -648.463 / -648.463 890 / 890 Weight 277 lb 15.341 oz 267 lb 4.8 oz 264 lb 8.875 oz 262 lb 7 oz Microbiology Reports for the Last 24 Hours: Microbiology 06/28/23 19:34 Blood Blood Culture - Preliminary No growth. 06/28/23 19:24 Blood Blood Culture - Preliminary No growth. 06/26/23 10:45 Blood Blood Culture - Preliminary 06/26/23 10:44 Blood Blood Culture - Preliminary 06/26/23 11:09 Urine,Clean Catch Urine Culture - Preliminary 06/27/23 10:24 Nose MRSA Culture - Final Negative Constitutional Constitutional: no acute distress *Routine Respiratory Exam Respiratory: Present CTA bilaterally and symmetric chest movement *Routine Cardiovascular Exam Cardiovascular: Present RRR, Normal S1 and Normal S2 *Routine Abdominal Exam Abdominal: Present soft and normoactive bowel sounds; Absent tenderness *Routine Extremities Exam Extremities: Present full ROM and normal capillary refill; Absent edema *Routine Skin Exam Skin: Present intact, dry and warm Detailed Neck Exam: Thyroids Thyroid: Absent bruit Progress Note: A&P Assessment and plan (1) Acute hypoxic respiratory failure: Status: Acute (2) Pneumonia: Status: Acute (3) Pleural effusion on right: Status: Acute Assessment and Plan Assessment and Plan for All Diagnoses:: Late presentation STEMI Troponin 53.10 EKG reviewed, significant ST changes noted [facility] 06/27/2023: Successful stenting of the ostial proximal mid LAD with 1 drug-eluting stent. Continue Effient 10 mg daily plus aspirin 81 mg daily. Resume atorvastatin 40 mg and added Coreg 3.125 mg p.o. twice daily Acute HFrEF/ischemic cardiomyopathy CTA chest-small right pleural effusion with interstitial prominence throughout both lungs concerning for mild interstitial edema Echo shows an estimated EF of 25% with the septal, anteroseptal,and inferiorseptal acosta akinetic Patient has diuresed over 10, creatinine stable. Continue Entresto 24/26 mg p.o. twice daily and aldactone 25mg po daily. Add Bumex 1 mg p.o. twice daily and Jardiance 10 mg daily LifeVest placement is pending CTA chest -opacity in right upper lobe concerning for pneumonia Pulmonology is following. Will defer treatment and antibiotic selection to pulmonology. CV summary 06/30/2023: Patient is CV stable for discharge home. Please have patient follow-up in cardiology clinic in 1 week for reevaluation and continue below listed medications. Cardiac meds Effient 10 mg p.o. daily Aspirin 81 mg p.o. daily Atorvastatin 40 mg p.o. daily Coreg 3.125 mg p.o. twice daily Entresto 24/26 mg p.o. twice daily Aldactone 25 mg p.o. daily Bumex 1 mg p.o. twice daily Jardiance 10 mg p.o. daily
--- NOTE | 2023-06-30 13:51 | EXP.PHA.PN ---
Subjective *Date: 06/30/23 *Time: 13:51 Medical Exam Vital signs and Labs for Last 24 Hours: Vital Signs Temp Pulse Pulse Resp BP Pulse Ox O2 Del Method 06/30/23 13:00 Room Air 06/30/23 11:00 Room Air 06/30/23 09:53 83 16 06/30/23 09:53 95 Room Air 06/30/23 09:00 Room Air 06/30/23 08:00 95 Room Air 06/30/23 08:00 98.5 F 91 H 16 100/62 L 95 Room Air 06/30/23 08:00 100 H 06/30/23 07:00 Room Air 06/30/23 05:00 Room Air 06/30/23 04:00 98.3 F 91 H 18 105/55 L 95 Room Air 06/30/23 04:00 90 06/30/23 03:00 Room Air 06/30/23 01:00 Room Air 06/30/23 00:00 110 H 06/30/23 00:00 98.5 F 91 H 18 89/47 L 95 Room Air 06/29/23 23:00 Room Air 06/29/23 21:00 Room Air 06/29/23 20:00 100 H 06/29/23 20:00 Room Air 06/29/23 20:00 98.8 F 95 H 26 H 102/69 L 95 Room Air 06/29/23 18:37 Room Air 06/29/23 17:05 Room Air 06/29/23 16:00 90 06/29/23 16:00 91 H 24 126/67 98 Room Air 06/29/23 15:00 Room Air 06/29/23 15:00 94 H 24 120/74 97 Room Air 06/29/23 14:00 96 H 24 113/42 L 97 Room Air Intake and Output 06/29/23 06/30/23 06/30/23 23:59 07:59 15:59 Intake Total 350 / 2207.537 350 / 890 540 / 890 Output Total 0 / 2856 0 / 0 0 / 0 Balance 350 / -648.463 350 / 890 540 / 890 Intake: Intake, Oral Amount 540 / 540 Intake, Total IV Amount 350 / 1317.537 350 / 350 Bumetanide 10 mg In 0.9 % 100 / 100 Sodium Chloride 60 ml @ 1 MG/HR 10 mls/hr IV .Q10H [facility] Rx#: [id number] Vancomycin HCl 2,000 mg In 0.9 250 / 500 250 / 250 % Sodium Chloride 250 ml @ 125 mls/hr IV Q12H [facility] Rx#:[id number] Output: Output, Urine Amount 2155 0 / 0 0 / 0 Other: Number of Unmeasured Voids 1 1 2 Weight 119.04 kg Patient Weight 06/30/23 23:59 Weight 119.04 kg Laboratory Results - last 24 hr 06/29/23 15:56: POC Glucose 329 H* 06/29/23 19:58: POC Glucose 296 H 06/30/23 05:37: POC Glucose 163 H 06/30/23 05:40: WBC 8.1, RBC 4.24, Hgb 12.9, Hct 39.4, MCV 92.7, MCH 30.4, MCHC 32.8, RDW 13.7, Plt Count 219, MPV 9.1, Neut % (Auto) 66.2, Lymph % (Auto) 26.3, [place] % (Auto) 5.9, Eos % (Auto) 1.0, Baso % (Auto) 0.7, Neut # (Auto) 5.4, Lymph # (Auto) 2.1, [place] # (Auto) 0.5, Eos # (Auto) 0.1, Baso # (Auto) 0.1, Sodium 136, Potassium 3.4 L, Chloride 91 L, Carbon Dioxide 36 H, Anion Gap 12.4, BUN 22 H, Creatinine 0.80, Estimated Creat Clear 70, Estimated GFR 75, Est GFR ( Amer) 91, Glucose 146 H, Calcium 8.2 L, Magnesium 1.9, Total Bilirubin 0.5, AST 79 H, ALT 46, Alkaline Phosphatase 88, Total Protein 6.3, Albumin 3.4 L, Globulin 2.9, Albumin/Globulin Ratio 1.2 06/30/23 11:18: POC Glucose 198 H I & O for Labs for Last 24 Hours: Intake & Output 06/27/23 06/28/23 06/29/23 06/30/23 23:59 23:59 23:59 23:59 Intake Total 2020.676 / 2020. 2555.589 / 2555.589 2207.537 / 2207.537 890 / 890 Output Total 5316 / 5783 6549 / 6857 2856 / 2856 0 / 0 Balance -3294.324 / -3761.324 -3993.411 / -4301.411 -648.463 / -648.463 890 / 890 Weight 126.08 kg 121.245 kg 120 kg 119.04 kg Microbiology Reports for the Last 24 Hours: Microbiology 06/28/23 19:34 Blood Blood Culture - Preliminary No growth. 06/28/23 19:24 Blood Blood Culture - Preliminary No growth. 06/26/23 10:45 Blood Blood Culture - Preliminary 06/26/23 10:44 Blood Blood Culture - Preliminary 06/26/23 11:09 Urine,Clean Catch Urine Culture - Preliminary The patient's infection will respond to the chosen ABx?: Yes Is the patient receiving the right drug, dose, and route?: Yes Could a more targeted ABx be ordered?: No (BLOOD CX INITIALLY POSITIVE FOR GRAM +.) How long ABx needed (days)?: 7
[2023-06-30 17:01] LABS: POC Glucose,Bedside 212 (70-110)
[2023-06-30] MEDS: humaLOG MIX 75/25 3ML FLEXPEN 40 UNIT SQ (17:13)
--- NOTE | 2023-06-30 17:19 | PC.NURSE ---
Patient has had low BP's throughout the day (Dr. Cody aware). BP is not detectable with datascope or manual adult size BP cuff; must us baby blue cuff and place on wrist. Patient is asymtomatic other than mild lightheadedness from lying to sitting position (Dr. Cody aware). Per Dr. Cody if Systolic is 80 or less hold Entresto Patient starting new insulin regimen tonight at supper time 75/25 pen 40 units FSBS prior to supper is 212 patient to have bedtime snack. Patient is A&O showing no s/s of distress noted at this time.
--- NOTE | 2023-06-30 18:56 | ECG_ITS ---
APPROVED REPORT Exam: Resting ECG HR:147 bpm ECG Measurements Heart Rate 147 AXES QRSd 92 QRS -90 QT 294 T 0 QTc 378 Conclusion ATRIAL FIBRILLATION WITH RAPID VENTRICULAR RESPONSE LEFT ANTERIOR FASCICULAR BLOCK [QRS AXIS <= -45, QR IN I, RS IN II] ANTEROLATERAL MYOCARDIAL INFARCTION , OF INDETERMINATE AGE [40+ ms Q WAVE IN I/aVL/V3-V6] ST DEPRESSION, CONSIDER SUBENDOCARDIAL INJURY [0.1+ mV ST DEPRESSION] ABNORMAL ECG UNCONFIRMED REPORT Electronically signed by : Adelso Munoz MD 07/01/2023 16:13:00
[2023-06-30] MEDS: AMIODARONE HCL IV (19:29)
[2023-06-30] MEDS: DEXTROSE 5% IV (19:29)
[2023-06-30] MEDS: WATER IV (19:29)
[2023-06-30] MEDS: LACTATED RINGERS 1000ML 500 ML 250 ML IV (19:32)
--- NOTE | 2023-06-30 19:46 | P.PN_ITS ---
Subjective *Date: 06/30/23 *Time: 22:13 Interval history: Patient initially doing well on morning rounds. Blood pressure acceptable. Heart rate controlled. No nausea or vomiting. Improved glucose control. Morning glucose 146. Stable on room air. Afebrile. No nausea or vomiting. No chest pain. No shortness of breath. On repeat evaluation later in the afternoon, patient developed acute onset of A- fib with RVR. EKG obtained and reviewed. Medical Exam Vital signs and Labs for Last 24 Hours: Vital Signs Temp Pulse Pulse Resp BP Pulse Ox O2 Del Method 06/30/23 18:38 Room Air 06/30/23 17:00 Room Air 06/30/23 16:00 80 06/30/23 15:00 Room Air 06/30/23 14:47 84/60 L 06/30/23 13:00 Room Air 06/30/23 12:00 98.0 F 93 H 20 92/54 L 96 Room Air 06/30/23 12:00 90 06/30/23 11:00 Room Air 06/30/23 09:53 83 16 06/30/23 09:53 95 Room Air 06/30/23 09:00 Room Air 06/30/23 08:00 95 Room Air 06/30/23 08:00 98.5 F 91 H 16 100/62 L 95 Room Air 06/30/23 08:00 100 H 06/30/23 07:00 Room Air 06/30/23 05:00 Room Air 06/30/23 04:00 98.3 F 91 H 18 105/55 L 95 Room Air 06/30/23 04:00 90 06/30/23 03:00 Room Air 06/30/23 01:00 Room Air 06/30/23 00:00 110 H 06/30/23 00:00 98.5 F 91 H 18 89/47 L 95 Room Air 06/29/23 23:00 Room Air 06/29/23 21:00 Room Air 06/29/23 20:00 100 H 06/29/23 20:00 Room Air 06/29/23 20:00 98.8 F 95 H 26 H 102/69 L 95 Room Air Intake and Output 06/30/23 06/30/23 06/30/23 07:59 15:59 23:59 Intake Total 350 / 1760 1075 / 1760 335 / 1760 Output Total 0 / 0 0 / 0 0 / 0 Balance 350 / 1760 1075 / 1760 335 / 1760 Intake: Intake, Oral Amount 1075 / 1410 335 / 1410 Intake, Total IV Amount 350 / 350 Bumetanide 10 mg In 0.9 % 100 / 100 Sodium Chloride 60 ml @ 1 MG/HR 10 mls/hr IV .Q10H [facility] Rx#: [id number] Vancomycin HCl 2,000 mg In 0.9 250 / 250 % Sodium Chloride 250 ml @ 125 mls/hr IV Q12H [facility] Rx#:[id number] Output: Output, Urine Amount 0 / 0 0 / 0 0 / 0 Other: Number of Unmeasured Voids 1 3 2 Number of Bowel Movements 1 Weight 119.04 kg Patient Weight 06/30/23 23:59 Weight 119.04 kg Laboratory Results - last 24 hr 06/29/23 19:58: POC Glucose 296 H 06/30/23 05:37: POC Glucose 163 H 06/30/23 05:40: WBC 8.1, RBC 4.24, Hgb 12.9, Hct 39.4, MCV 92.7, MCH 30.4, MCHC 32.8, RDW 13.7, Plt Count 219, MPV 9.1, Neut % (Auto) 66.2, Lymph % (Auto) 26.3, [place] % (Auto) 5.9, Eos % (Auto) 1.0, Baso % (Auto) 0.7, Neut # (Auto) 5.4, Lymph # (Auto) 2.1, [place] # (Auto) 0.5, Eos # (Auto) 0.1, Baso # (Auto) 0.1, Sodium 136, Potassium 3.4 L, Chloride 91 L, Carbon Dioxide 36 H, Anion Gap 12.4, BUN 22 H, Creatinine 0.80, Estimated Creat Clear 70, Estimated GFR 75, Est GFR ( Amer) 91, Glucose 146 H, Calcium 8.2 L, Magnesium 1.9, Total Bilirubin 0.5, AST 79 H, ALT 46, Alkaline Phosphatase 88, Total Protein 6.3, Albumin 3.4 L, Globulin 2.9, Albumin/Globulin Ratio 1.2 06/30/23 11:18: POC Glucose 198 H 06/30/23 16:54: POC Glucose 212 H I & O for Labs for Last 24 Hours: Intake & Output 06/27/23 06/28/23 06/29/23 06/30/23 23:59 23:59 23:59 23:59 Intake Total 1.676 / 2021.676 2555.589 / 2555.589 2207.537 / 2207.537 1760 / 1760 Output Total 5316 / 5783 6549 / 6857 2856 / 2856 0 / 0 Balance -3294.324 / -3761.324 -3993.411 / -4301.411 -648.463 / -838.168 6195 / 1760 Weight 126.08 kg 121.245 kg 120 kg 119.04 kg Microbiology Reports for the Last 24 Hours: Microbiology 06/28/23 19:34 Blood Blood Culture - Preliminary No growth. 06/28/23 19:24 Blood Blood Culture - Preliminary No growth. 06/26/23 10:45 Blood Blood Culture - Preliminary Constitutional: Present no acute distress, morbidly obese, chronically ill appearing and cooperative Head: Present atraumatic and normocephalic ENT: Present normal exam Comment:: Poor dentition Respiratory: Present normal respiratory effort; Absent rhonchi, wheezes or crackles Cardiac: Present Regular Rhythm GI: Present soft and normal bowel sounds; Absent distention or tenderness Extremities: Present normal inspection and full ROM; Absent edema Skin: Present intact; Absent erythema Neuro: Present Grossly Intact, alert, awake, oriented x 3 and moves all extremities Assessment and Plan *Assessment and plan (1) Heart failure with reduced ejection fraction: Status: Acute Category: Medical Code(s): I50.20 - Unspecified systolic (congestive) heart failure (2) Atrial fibrillation with RVR: Status: Acute Category: Medical Code(s): I48.91 - Unspecified atrial fibrillation (3) STEMI (ST elevation myocardial infarction): Status: Acute Category: Medical Code(s): I21.3 - ST elevation (STEMI) myocardial infarction of unspecified site (4) Hyperosmolar hyperglycemic state (HHS): Status: Resolved Category: Medical Code(s): E11.00 - Type 2 diabetes mellitus with hyperosmolarity without nonketotic hyperglycemic-hyperosmolar coma (NKHHC) (5) Pleural effusion on right: Status: Acute Category: Medical Code(s): J90 - Pleural effusion, not elsewhere classified (6) ACS (acute coronary syndrome): Status: Acute Category: Medical Code(s): I24.9 - Acute ischemic heart disease, unspecified (7) UTI (urinary tract infection): Status: Acute Qualifiers: Hematuria presence: without hematuria Urinary tract infection type: site unspecified Qualified Code(s): N39.0 - Urinary tract infection, site not specified Category: Medical Code(s): N39.0 - Urinary tract infection, site not specified (8) Acute hypoxic respiratory failure: Status: Resolved Category: Medical Code(s): J96.01 - Acute respiratory failure with hypoxia (9) Pneumonia: Status: Resolved Category: Medical Code(s): J18.9 - Pneumonia, unspecified organism (10) Dyspnea: Status: Acute Category: Medical Code(s): R06.00 - Dyspnea, unspecified (11) Class 3 obesity: Status: Chronic Category: Medical Code(s): E66.01 - Morbid (severe) obesity due to excess calories (12) Gram-positive bacteremia: Status: Acute Category: Medical Code(s): R78.81 - Bacteremia Plan Patient is a 53-year-old female who presents to the hospital due to complaints of shortness of breath dyspnea. Patient has past medical history of hypertension hyperlipidemia diabetes mellitus, CAD. According to patient she had chest pains on Tuesday which resolved however she started feeling short of breath after that. Patient mentions she has not been compliant with diabetic medications. Patient admitted for [facility], late presentation of STEMI, respiratory failure. Found to be in cardiogenic shock with acute heart failure with reduced ejection fraction and pulmonary edema. Her HHS is improving. Status post cath on 06/26 with successful stenting. Titrating goal-directed therapy. Developed A- fib with RVR this afternoon. Continue to make adjustments to diabetes regimen and heart failure regimen. Anticipate discharge in the next day or 2. Pulmonology and cardiology continue to assist with care. Problems addressed as follows: HHS/DKA Uncontrolled diabetes - A1c 12.8 -Transition to twice daily regimen today with combo 75/25 insulin. Will start with 40 units twice daily. Titrate up as tolerated. Adjusting to regimen for ease of dosing at her personal-longterm. Total daily insulin requirement has been between 80 and 90 units of combined long-acting and short acting.. -Discontinue sliding scale insulin -Adjust needs pending daily insulin requirements. Morning glucose of 146, goal less than 150 New onset A-fib with RVR -Initiate amiodarone drip, goal heart rate less than 100 blood pressure soft with addition of carvedilol 3.125 mg twice daily; carvedilol discontinued due to low blood pressure. Late presentation of STEMI Acute heart failure with reduced ejection fraction/ischemic cardiomyopathy Pulmonary edema -Cardiology consulted, assisting with care. Discussed case today. Discontinue Bumex drip. Transition to 1 mg twice daily. Kidney function remained stable with BUN 22, creatinine 0.8. - Repeat CBC, CMP, magnesium ordered for the morning. -Negative almost 10 L -Potassium low at 3.4, continue oral replacement daily. -Troponin peaked at 53 - Left heart cath 06/27/2023: Successful stenting of the ostial proximal mid LAD with 1 drug-eluting stent. - Continue Effient 10 mg daily plus aspirin 81 mg daily. -Initiate carvedilol 3.125, monitor for low blood pressure -Continue Entresto 24/26 mg twice daily. Initiate Aldactone 25 mg daily and Jardiance daily -Liver enzymes normalizing -Formal echo read with a EF of 25%. Will necessitate LifeVest Bacteremia: - Blood cultures positive for gram-positive cocci. Unclear the significance. In the setting of her presentation with DKA, STEMI, hypotension, will continue vancomycin IV. Monitoring for toxicity. -Repeat blood cultures negative at 48 hours. Will discontinue antibiotics at discharge. Hypothyroid: Continue levothyroxine 175 mcg daily Suspected pneumonia versus pulmonary edema -CT of chest with right upper lobe opacity. Pulmonology was consulted. Completed 3 days of antibiotics -Discussed case with pulmonology, wean oxygen as tolerated. On room air for 48 hours. Continue DuoNebs every 6 hours as needed Full code Diabetic diet DVT prophylaxis-heparin
[2023-06-30 20:54] LABS: Chloride 90 mmol/L (98-107); Potassium 3.9 mmoL/L (3.5-5.1); Sodium 129 mmol/L (136-145)
[2023-06-30 20:57] LABS: Anion Gap 9.9 mEq/L (5-15); Carbon Dioxide 33 mmol/L (22.0-30.0)
[2023-06-30 20:58] LABS: Blood Urea Nitrogen 28 mg/dl (7-17); Calcium 8.8 mg/dl (8.4-10.2); Creatinine Clearance Estimated 56 mL/min (50-200); Estimated Glomerular Filt Rate 58 ml/min (>60); GFR (African American) 70 ML/MIN (>60); Glucose 367 mg/dl (74-100); Magnesium 2.2 mg/dl (1.6-2.3)
[2023-06-30] MEDS: AMIODARONE HCL 900 MG in DEXTROSE 5 % IN WATER 500 ML 33.2999999999999972 MG IV (21:25)
[2023-06-30] MEDS: ATORVASTATIN 40MG TABLET 40 MG PO (21:28)
[2023-06-30] MEDS: PRAVASTATIN 40MG TAB 40 MG PO (21:29)
[2023-07-01] VITALS (10 sets, daily range): BP systolic 82–118; BP diastolic 41–71; PULSE 73–94; RESP 14–20; TEMP 36.6–36.9; O2SAT 93–100; BMI 44.3
--- NOTE | 2023-07-01 01:12 | ECG_ITS ---
APPROVED REPORT Exam: Resting ECG HR:76 bpm ECG Measurements Heart Rate 76 AXES IN 147 P 49 QRSd 99 QRS -51 QT 437 T -63 QTc 467 Conclusion SINUS RHYTHM LEFT ANTERIOR FASCICULAR BLOCK [QRS AXIS <= -45, QR IN I, RS IN II] ANTEROLATERAL MYOCARDIAL INFARCTION , OF INDETERMINATE AGE [40+ ms Q WAVE IN I/aVL/V3-V6] MODERATE T-WAVE ABNORMALITY, CONSIDER INFERIOR ISCHEMIA [-0.1+ mV T-WAVE IN II/aVF] ABNORMAL ECG INTERPRETATION BASED ON A DEFAULT AGE OF 40 YEARS UNCONFIRMED REPORT Electronically signed by : Adelso Munoz MD 07/01/2023 16:12:49
--- NOTE | 2023-07-01 03:56 | PC.NURSE ---
amiodarone gtt decreased to 0.5 mg/min
[2023-07-01 06:24] LABS: POC Glucose,Bedside 353 (70-110)
[2023-07-01 06:45] LABS: Basophils # 0.1 K/mm3 (0-0.2); Basophils % 0.8 % (0.1-2.0); Eosinophils # 0.1 K/mm3 (0.0-0.4); Eosinophils % 1.2 % (0.1-12.0); Hematocrit 38.2 % (37.0-47.0); Hemoglobin 12.6 g/dL (12.2-16.2); Lymphocytes # 2.5 K/mm3 (0.7-4.5); Mean Corpuscular Hemoglobin 30.5 pg (27.0-31.2); Mean Corpuscular Volume 92.5 fl (81-99); Mean Platelet Volume 8.7 fl (7.4-10.4); Monocytes # 0.5 K/mm3 (0.1-1.0); Monocytes % 5.9 % (1.7-9.3); Neutrophils # 4.9 K/mm3 (1.8-7.8); Neutrophils % 61.2 % (37.0-80.0); Platelet Count 227 K/mm3 (142-424); Red Blood Count 4.13 M/mm3 (4.20-5.40); Red Cell Distribution Width 13.8 % (11.5-17.5); White Blood Count 8.1 K/mm3 (4.8-10.8)
[2023-07-01 07:02] LABS: Alanine Aminotransferase 41 U/L (12-78); Albumin Level 3.2 g/dl (3.5-5.0); Alkaline Phosphatase 76 U/L (38-126); Anion Gap 9.5 mEq/L (5-15); Aspartate Amino Transferase 54 U/L (14-36); Bilirubin,Total 0.4 mg/dl (0.2-1.3); Blood Urea Nitrogen 26 mg/dl (7-17); Calcium 8.9 mg/dl (8.4-10.2); Carbon Dioxide 37 mmol/L (22.0-30.0); Chloride 93 mmol/L (98-107); Creatinine Clearance Estimated 56 mL/min (50-200); Estimated Glomerular Filt Rate 58 ml/min (>60); GFR (African American) 70 ML/MIN (>60); Globulin 3.2 g/dL (1.3-3.2); Glucose 113 mg/dl (74-100); Potassium 3.5 mmoL/L (3.5-5.1); Sodium 136 mmol/L (136-145); Total Protein,Serum 6.4 g/dl (6.3-8.2)
[2023-07-01] MEDS: LEVOTHYROXINE 175MCG (0.175MG) TAB 175 MCG PO (07:22)
[2023-07-01 07:26] LABS: POC Glucose,Bedside 120 (70-110)
[2023-07-01] MEDS: PHA TO NURSING INSTRUCTION 1 EACH NOTAPPLIC (07:26)
[2023-07-01 07:59] LABS: Magnesium 2.3 mg/dl (1.6-2.3)
[2023-07-01] MEDS: humaLOG MIX 75/25 3ML FLEXPEN 45 UNIT SQ ×2 (08:30→16:30)
[2023-07-01] MEDS: POTASSIUM CHLORIDE 20MEQ TAB 20 MEQ PO ×2 (08:32→13:37)
[2023-07-01] MEDS: SPIRONOLACTONE 25MG TABLET 25 MG PO (08:32)
[2023-07-01] MEDS: EMPAGLIFLOZIN 10MG TABLET 10 MG PO (08:32)
[2023-07-01] MEDS: CITALOPRAM 40MG TABLET 40 MG PO (08:32)
[2023-07-01] MEDS: SENNOSIDES 8.6MG/DOCUSATE 50MG TABLET 1 TAB PO (08:32)
[2023-07-01] MEDS: ASPIRIN EC 81MG TABLET 81 MG PO (08:32)
[2023-07-01] MEDS: BUMETANIDE 1 MG TABLET PO (08:32)
[2023-07-01] MEDS: PRASUGREL 10MG TAB 10 MG PO (08:32)
[2023-07-01] MEDS: SACUBITRIL/VALSARTAN 24-26MG TABLET 1 EACH PO (08:32)
[2023-07-01] MEDS: buPROPion HCl SR 150MG TAB 150 MG PO (08:34)
[2023-07-01 09:09] LABS: Vancomycin,Trough 26.4 ug/mL (5.0-10.0)
--- NOTE | 2023-07-01 09:29 | ECG_ITS ---
APPROVED REPORT Exam: Resting ECG HR:80 bpm ECG Measurements Heart Rate 80 AXES FL 151 P 44 QRSd 93 QRS -11 QT 386 T -56 QTc 423 Conclusion SINUS RHYTHM LOW QRS VOLTAGE IN EXTREMITY LEADS [QRS DEFLECTION < 0.5 mV IN LIMB LEADS] ANTEROLATERAL MYOCARDIAL INFARCTION , OF INDETERMINATE AGE [40+ ms Q WAVE IN I/aVL/V3-V6] ABNORMAL ECG UNCONFIRMED REPORT Electronically signed by : Adelso Munoz MD 07/01/2023 16:12:43
--- NOTE | 2023-07-01 10:21 | EXP.PHA.CONS ---
Pharmacy Consult Date: 07/01/23 Time: 10:21 Referring provider: DR. GUALLPA Reason for Consult:: VANCOMYCIN TROUGH LEVEL OBTAINED Allergies Allergy/AdvReac Type Severity Reaction Status Date / Time No Known Allergies Allergy Verified 06/26/23 11:01 Home Medications Medication Instructions Recorded Confirmed Type bupropion HCl 150 mg 24 hr tablet, 150 mg PO DAILY 06/26/23 06/26/23 History extended release citalopram 40 mg tablet 40 mg PO DAILY 06/26/23 06/26/23 History ibuprofen 600 mg tablet 600 mg PO Q6HP PRN Mild Pain 06/26/23 06/26/23 History (Scale Score 1-4) insulin glargine 100 unit/mL (3 7 unit SQ DAILY 06/26/23 06/26/23 History mL) subcutaneous pen (Lantus Solostar U-100 Insulin) lactulose 10 gram/15 mL oral 30 ml PO BIDP PRN Constipation 06/26/23 06/26/23 History solution levothyroxine 175 mcg tablet 175 mcg PO DAILY 06/26/23 06/26/23 History metformin 500 mg tablet 500 mg PO BIDWMEAL 06/26/23 06/26/23 History norethindrone acetate 5 mg tablet 5 mg PO DAILY 06/26/23 06/26/23 History simvastatin 20 mg tablet 20 mg PO HS 06/26/23 06/26/23 History New Prescriptions to Start Prescriptions: Height: 1.65 m Weight: 120.61 kg Laboratory Results:: Laboratory Results - last 24 hr 06/30/23 11:18: POC Glucose 198 H 06/30/23 16:54: POC Glucose 212 H 06/30/23 20:03: Sodium 129 L, Potassium 3.9, Chloride 90 L, Carbon Dioxide 33 H, Anion Gap 9.9, BUN 28 H D, Creatinine 1.00 D, Estimated Creat Clear 56, Estimated GFR 58 L, Est GFR ( Amer) 70 D, Glucose 367 H D, Calcium 8.8, Magnesium 2.2 D 06/30/23 20:50: POC Glucose 353 H* 07/01/23 05:30: WBC 8.1, RBC 4.13 L, Hgb 12.6, Hct 38.2, MCV 92.5, MCH 30.5, MCHC 33.0, RDW 13.8, Plt Count 227, MPV 8.7, Neut % (Auto) 61.2, Lymph % (Auto) 31.0, [place] % (Auto) 5.9, Eos % (Auto) 1.2, Baso % (Auto) 0.8, Neut # (Auto) 4.9, Lymph # (Auto) 2.5, [place] # (Auto) 0.5, Eos # (Auto) 0.1, Baso # (Auto) 0.1, Sodium 136, Potassium 3.5, Chloride 93 L, Carbon Dioxide 37 H, Anion Gap 9.5, BUN 26 H, Creatinine 1.00, Estimated Creat Clear 56, Estimated GFR 58 L, Est GFR ( Amer) 70, Glucose 113 H D, Calcium 8.9, Magnesium 2.3, Total Bilirubin 0.4, AST 54 H D, ALT 41, Alkaline Phosphatase 76, Total Protein 6.4, Albumin 3.2 L, Globulin 3.2, Albumin/Globulin Ratio 1.0 L 07/01/23 07:15: Vancomycin Trough 26.4 H 07/01/23 07:20: POC Glucose 120 H Medical History: Medical History (Updated 06/30/23 @ 22:19 by Trever Guallpa MD) Pleural effusion on right History of anemia Depressed Arthritis Hypothyroid Diabetes Assessment and Plan Assessment and plan all Dx Assessment and Plan for all problems:: Pharmacokinetic dosing service Weight: 120.61 Kilograms Vancomycin single level analysis: Current dose being given: 2000 mg Current dosing interval: 12 hrs Current infusion time (hrs): 2 Single level Trough Data: Trough level obtained: 26.4 mcg/ml Timing of trough - # of hrs before next dose: 0.5 Hrs Desired peak: 35 mcg/ml Desired trough: 12.5 mcg/ml Estimated PK Parameters: New rate constant (marcin): 0.056 hr-1 Half-life: 12.38 Hours Vd from levels: 84.43 Liters (0.7 L/kg) CLvanco=?? 4.728 L/hr Estimated New Dose and Interval Recommended dose: 2127.0 mg Recommended interval: 20.4 Hrs Recommendations: Give Vancomycin 2000 mg q 18 hrs, START 07/01/23 AT 20:00. Infuse over 2 hrs Expected Cpeak: 35.3 mcg/mL Expected Ctrough: 14.4 mcg/mL AUC 0-24 /PETRA Data: PETRA 0.5 mcg/mL:?? AUC/PETRA:? 1128.0 PETRA 1.0 mcg/mL:?? AUC/PETRA:? 564.0 Thank you for the consult
[2023-07-01 11:01] LABS: POC Glucose,Bedside 229 (70-110)
--- NOTE | 2023-07-01 13:53 | P.DS_ITS ---
General Admission date:: 06/26/23 Discharge date: 07/01/23 Hospital Course Hospital Course Hospital Course: Patient is a 53-year-old female who presents to the hospital due to complaints of shortness of breath dyspnea. Patient has past medical history of hypertension hyperlipidemia diabetes mellitus, CAD. According to patient she had chest pains on Tuesday which resolved however she started feeling short of b reath after that. Patient mentions she has not been compliant with diabetic medications. Patient admitted for HHS, late presentation of STEMI, respiratory failure. Found to be in cardiogenic shock with acute heart failure with reduced ejection fraction and pulmonary edema. Showed gradual improvement in her HHS as well as resolution of her cardiogenic shock. Able to tolerate titration of goal-directed therapy for her heart failure. Patient did develop brief episode of A-fib that responded to amiodarone. Will discharge on extensive new regimen for diabetes control, heart failure, A-fib. Currently hemodynamically stable. Therapy is working with her, at baseline level of function. Will discharge back to [facility]. See [facility] rec for full details. Problems addressed as follows: HHS/DKA Uncontrolled diabetes - A1c 12.8 on admission. Severely elevated glucose. Was started on insulin drip and gradually advanced to basal bolus regimen. Regimen was transitioned to twice daily 75/25 insulin combo therapy for ease of dosing. She will continue twice daily dosing. Glucoses have done significantly better. Will need further adjustments in the outpatient setting and repeat A1c in 3 months. Also adding oral metformin and Jardiance given her heart failure. These will assist in her glucose control as well. New onset A-fib with RVR -Initiated on amiodarone. Loaded for 18 hours. Will continue 400 mg twice daily. Further adjustments to be made with follow-up with cardiology. Converted back to sinus rhythm within about 12 hours. Holding on anticoagulation given the extent of patient's comorbidities, fall risk, improvement to sinus rhythm. Further discussion about anticoagulation in the outpatient setting with cardiology. Late presentation of STEMI Acute heart failure with reduced ejection fraction/ischemic cardiomyopathy Pulmonary edema -Patient had elevated troponin, peaked at 53. Cardiology was consulted. Patient was taken for heart cath on 06/26. Successful stenting of the ostial proximal mid LAD with 1 drug-eluting stent. Was started on Bumex drip and milrinone for cardiogenic shock and volume overload. Showed good response. Able to wean off milrinone and transition to goal-directed therapy. Will continue Bumex 1 mg daily, Entresto 24/26 mg twice daily, Aldactone 25 mg daily, and Jardiance 10 mg daily. Holding on beta-zion due to low output state. Electrolytes have been stable. Continue aspirin 81 mg daily and Effient 10 mg daily for dual antiplatelet therapy. Formal echo obtained with EF of 25%. LifeVest provided prior to discharge. Patient educated on use and battery replacement. Bacteremia: - Blood cultures positive for gram-positive cocci. Unclear the significance. In the setting of her presentation with DKA, STEMI, hypotension, treated with vancomycin during admission. Repeat blood cultures were negative. Cultures were from single bottle set and were positive for Staph hominis. Second culture set obtained at time of admission was negative. Given timing of positive, speciation from culture, high suspicion for commensal organism/contaminant. No further antibiotics at discharge. Hypothyroid: Continue levothyroxine 175 mcg daily Suspected pneumonia versus pulmonary edema -CT of chest with right upper lobe opacity. Pulmonology was consulted. Completed 3 days of antibiotics. Has been stable on room air for over 72 hours. No oxygen requirement at this time. Close follow-up with pulmonology and cardiology. Total time spent on discharge 40 minutes in counseling, documentation, chart review, and direct care with patient. Exam Data for Last 24 hours Vital signs and Labs for Last 24 Hours: Temp Pulse Resp BP Pulse Ox O2 Del Method O2 Flow Rate 98.2 F 92 H 18 118/46 L 97 Room Air 2 07/01/23 12:00 07/01/23 12:30 07/01/23 12:30 07/01/23 12:30 07/01/23 12:30 07/01/23 13:12 06/29/23 06:00 Laboratory Results - last 24 hr 06/30/23 16:54: POC Glucose 212 H 06/30/23 20:03: Sodium 129 L, Potassium 3.9, Chloride 90 L, Carbon Dioxide 33 H, Anion Gap 9.9, BUN 28 H D, Creatinine 1.00 D, Estimated Creat Clear 56, Estimated GFR 58 L, Est GFR ( Amer) 70 D, Glucose 367 H D, Calcium 8.8, Magnesium 2.2 D 06/30/23 20:50: POC Glucose 353 H* 07/01/23 05:30: WBC 8.1, RBC 4.13 L, Hgb 12.6, Hct 38.2, MCV 92.5, MCH 30.5, MCHC 33.0, RDW 13.8, Plt Count 227, MPV 8.7, Neut % (Auto) 61.2, Lymph % (Auto) 31.0, Hardeman % (Auto) 5.9, Eos % (Auto) 1.2, Baso % (Auto) 0.8, Neut # (Auto) 4.9, Lymph # (Auto) 2.5, Hardeman # (Auto) 0.5, Eos # (Auto) 0.1, Baso # (Auto) 0.1, Sodium 136, Potassium 3.5, Chloride 93 L, Carbon Dioxide 37 H, Anion Gap 9.5, BUN 26 H, Creatinine 1.00, Estimated Creat Clear 56, Estimated GFR 58 L, Est GFR ( Amer) 70, Glucose 113 H D, Calcium 8.9, Magnesium 2.3, Total Bilirubin 0.4, AST 54 H D, ALT 41, Alkaline Phosphatase 76, Total Protein 6.4, Albumin 3.2 L, Globulin 3.2, Albumin/Globulin Ratio 1.0 L 07/01/23 07:15: Vancomycin Trough 26.4 H 07/01/23 07:20: POC Glucose 120 H 07/01/23 10:54: POC Glucose 229 H I & O for Last 24 hours: Intake & Output 06/28/23 06/29/23 06/30/23 07/01/23 23:59 23:59 23:59 23:59 Intake Total 2555.589 / 2555.589 2207.537 / 2207.537 1759 / 2609 1569 / 157 Output Total 6549 / 6857 2856 / 2856 0 / 0 0 / 0 Balance -3993.411 / -4301.411 -648.463 / -518.491 5517 / 261 1570 / 1570 Weight 121.245 kg 120 kg 119.04 kg 120.61 kg Microbiology Reports for the Last 24 Hours: Microbiology 06/26/23 10:44 Blood Blood Culture - Final 06/26/23 11:09 Urine,Clean Catch Urine Culture - Preliminary 06/28/23 19:34 Blood Blood Culture - Preliminary No growth. 06/28/23 19:24 Blood Blood Culture - Preliminary No growth. Constitutional Constitutional: no acute distress *Routine HEENT Exam Head: Present normocephalic Eye: Present EOMI and PERRL ENT: Present mucous membranes moist *Routine Neck Exam Neck: Present supple; Absent lymphadenopathy *Routine Respiratory Exam Respiratory: Present CTA bilaterally *Routine Cardiovascular Exam Cardiovascular: Present RRR *Routine Abdominal Exam Abdominal: Present soft and normoactive bowel sounds; Absent tenderness *Routine Extremities Exam Extremities: Absent cyanosis, clubbing or edema *Routine Skin Exam Skin: Present warm; Absent rash *Routine Neurological Exam Neurological: Present alert and oriented X3 Results Data Completed and Pending Labs on day of discharge: Labs from last 24 hours 07/01/23 07/01/23 07/01/23 10:54 07:20 07:15 WBC RBC Hgb Hct MCV MCH MCHC RDW Plt Count MPV Neut % (Auto) Lymph % (Auto) Hardeman % (Auto) Eos % (Auto) Baso % (Auto) Neut # (Auto) Lymph # (Auto) Hardeman # (Auto) Eos # (Auto) Baso # (Auto) Sodium Potassium Chloride Carbon Dioxide Anion Gap BUN Creatinine Estimated Creat Clear Estimated GFR Est GFR ( Amer) Glucose POC Glucose 229 H 120 H Calcium Magnesium Total Bilirubin AST ALT Alkaline Phosphatase Total Protein Albumin Globulin Albumin/Globulin Ratio Vancomycin Trough 26.4 H 07/01/23 06/30/23 06/30/23 05:30 20:50 20:03 WBC 8.1 RBC 4.13 L Hgb 12.6 Hct 38.2 MCV 92.5 MCH 30.5 MCHC 33.0 RDW 13.8 Plt Count 227 MPV 8.7 Neut % (Auto) 61.2 Lymph % (Auto) 31.0 Hardeman % (Auto) 5.9 Eos % (Auto) 1.2 Baso % (Auto) 0.8 Neut # (Auto) 4.9 Lymph # (Auto) 2.5 Hardeman # (Auto) 0.5 Eos # (Auto) 0.1 Baso # (Auto) 0.1 Sodium 136 129 L Potassium 3.5 3.9 Chloride 93 L 90 L Carbon Dioxide 37 H 33 H Anion Gap 9.5 9.9 BUN 26 H 28 H D Creatinine 1.00 1.00 D Estimated Creat Clear 56 56 Estimated GFR 58 L 58 L Est GFR ( Amer) 70 70 D Glucose 113 H D 367 H D POC Glucose 353 H* Calcium 8.9 8.8 Magnesium 2.3 2.2 D Total Bilirubin 0.4 AST 54 H D ALT 41 Alkaline Phosphatase 76 Total Protein 6.4 Albumin 3.2 L Globulin 3.2 Albumin/Globulin Ratio 1.0 L Vancomycin Trough 06/30/23 16:54 WBC RBC Hgb Hct MCV MCH MCHC RDW Plt Count MPV Neut % (Auto) Lymph % (Auto) Hardeman % (Auto) Eos % (Auto) Baso % (Auto) Neut # (Auto) Lymph # (Auto) Hardeman # (Auto) Eos # (Auto) Baso # (Auto) Sodium Potassium Chloride Carbon Dioxide Anion Gap BUN Creatinine Estimated Creat Clear Estimated GFR Est GFR ( Amer) Glucose POC Glucose 212 H Calcium Magnesium Total Bilirubin AST ALT Alkaline Phosphatase Total Protein Albumin Globulin Albumin/Globulin Ratio Vancomycin Trough Preliminary micro results at discharge 06/26/23 11:09 Urine Culture - Preliminary Urine,Clean Catch 06/28/23 19:34 Blood Culture - Preliminary Blood No growth. 06/28/23 19:24 Blood Culture - Preliminary Blood No growth. 06/26/23 10:45 Blood Culture - Preliminary Blood DS: Diagnosis Discharge Diagnosis (1) Heart failure with reduced ejection fraction: Status: Acute Code(s): I50.20 - Unspecified systolic (congestive) heart failure (2) Atrial fibrillation with RVR: Status: Acute Code(s): I48.91 - Unspecified atrial fibrillation (3) STEMI (ST elevation myocardial infarction): Status: Acute Code(s): I21.3 - ST elevation (STEMI) myocardial infarction of unspecified site (4) Hyperosmolar hyperglycemic state (HHS): Status: Resolved Code(s): E11.00 - Type 2 diabetes mellitus with hyperosmolarity without nonketotic hyperglycemic-hyperosmolar coma (NKHHC) (5) Pleural effusion on right: Status: Acute Code(s): J90 - Pleural effusion, not elsewhere classified (6) ACS (acute coronary syndrome): Status: Acute Code(s): I24.9 - Acute ischemic heart disease, unspecified (7) UTI (urinary tract infection): Status: Acute Code(s): N39.0 - Urinary tract infection, site not specified Qualifiers: Hematuria presence: without hematuria Urinary tract infection type: site unspecified Qualified Code(s): N39.0 - Urinary tract infection, site not specified (8) Acute hypoxic respiratory failure: Status: Resolved Code(s): J96.01 - Acute respiratory failure with hypoxia (9) Pneumonia: Status: Resolved Code(s): J18.9 - Pneumonia, unspecified organism (10) Dyspnea: Status: Acute Code(s): R06.00 - Dyspnea, unspecified (11) Class 3 obesity: Status: Chronic Code(s): E66.01 - Morbid (severe) obesity due to excess calories (12) Gram-positive bacteremia: Status: Acute Code(s): R78.81 - Bacteremia Meds Home Medications and Allergies Home Medications Medication Instructions Recorded Confirmed Type bupropion HCl 150 mg 24 hr tablet, 150 mg PO DAILY 06/26/23 06/26/23 History extended release citalopram 40 mg tablet 40 mg PO DAILY 06/26/23 06/26/23 History lactulose 10 gram/15 mL oral 30 ml PO BIDP PRN Constipation 06/26/23 06/26/23 History solution levothyroxine 175 mcg tablet 175 mcg PO DAILY 06/26/23 06/26/23 History metformin 500 mg tablet 500 mg PO BIDWMEAL 06/26/23 06/26/23 History norethindrone acetate 5 mg tablet 5 mg PO DAILY 06/26/23 06/26/23 History simvastatin 20 mg tablet 20 mg PO HS 06/26/23 06/26/23 History amiodarone 200 mg tablet 400 mg (2 x 200 mg) PO BID 30 days 07/01/23 Rx #120 tabs aspirin 81 mg tablet,delayed 81 mg PO DAILY 30 days #30 tabs 07/01/23 Rx release atorvastatin 40 mg tablet 40 mg PO HS 30 days #30 tabs 07/01/23 Rx bumetanide 1 mg tablet 1 mg PO DAILY 30 days #30 tabs 07/01/23 Rx empagliflozin 10 mg tablet 10 mg PO DAILY 30 days #30 tabs 07/01/23 Rx (Jardiance) insulin lispro protamine-lispro 40 unit (0.4 mL) SQ BIDWMEAL 30 07/01/23 Rx 100 unit/mL (75-25) subcutaneous days #24 mL pen (Humalog Mix 75-25 KwikPen) pen needle, diabetic 31 gauge x #100 ea 07/01/23 Rx 1/4 prasugrel 10 mg tablet 10 mg PO DAILY 30 days #30 tabs 07/01/23 Rx sacubitril 24 mg-valsartan 26 mg 1 tab PO BID 30 days #60 tabs 07/01/23 Rx tablet (Entresto) spironolactone 25 mg tablet 25 mg PO DAILY 30 days #30 tabs 07/01/23 Rx New Prescriptions to Start Prescriptions: amiodarone Escobar,Trever aspirin Escobar,Trever atorvastatin Escobar,Trever bumetanide Escobar,Trever empagliflozin [Jardiance] Escobar,Trever insulin lispro protamin-lispro [Humalog Mix 75-25 KwikPen] Escobar,Trever pen needle, diabetic Escobar,Trever prasugrel Escobar,Trever sacubitril-valsartan [Entresto] Escobar,Trever spironolactone Escobar,Trever Allergies Allergy/AdvReac Type Severity Reaction Status Date / Time No Known Allergies Allergy Verified 06/26/23 11:01 Discharge Plan Disposition Patient Disposition: Home, Self-Care Condition: Fair Discharge Order Discharge Orders: Discharge Order (Routine); Ordered 07/01/23 Ordered By: Trever Cody Follow up Plan Follow up with: Monroe Lara MD [Staff Physician] - 07/07/23 9:15 am Giulia Salas MD [Physician] - 07/11/23 10:00 am Prescriptions/Medication Reconciliation: New atorvastatin 40 mg Tablet 40 mg PO HS 30 Days Qty: 30 0RF aspirin 81 mg Tablet,Delayed Release (Dr/Ec) 81 mg PO DAILY 30 Days Qty: 30 0RF bumetanide 1 mg Tablet 1 mg PO DAILY 30 Days Qty: 30 0RF Jardiance 10 mg Tablet 10 mg PO DAILY 30 Days Qty: 30 0RF insulin lispro protamin-lispro [Humalog Mix 75-25 KwikPen] 100 unit/mL (75-25) Insulin Pen 40 unit SQ BIDWMEAL 30 Days Qty: 24 0RF prasugrel 10 mg Tablet 10 mg PO DAILY 30 Days Qty: 30 0RF Entresto 24-26 mg Tablet 1 tab PO BID 30 Days Qty: 60 0RF spironolactone 25 mg Tablet 25 mg PO DAILY 30 Days Qty: 30 0RF (DME) pen needle, diabetic 31 gauge x 1/4 needle See Rx Instructions .Route Qty: 100 0RF Rx Instructions: As directed amiodarone 200 mg tablet 400 mg PO BID 30 Days Qty: 120 0RF Continued metformin 500 mg tablet 500 mg PO BIDWMEAL citalopram 40 mg tablet 40 mg PO DAILY simvastatin 20 mg tablet 20 mg PO HS norethindrone acetate 5 mg tablet 5 mg PO DAILY lactulose 10 gram/15 mL solution 30 ml PO BIDP PRN (Reason: Constipation) Patient Comments: GIVE 30ML BY MOUTH TWICE A DAY NEEDED FOR CONSTIPATION levothyroxine 175 mcg tablet 175 mcg PO DAILY bupropion HCl 150 mg tablet extended release 24 hr 150 mg PO DAILY Discontinued ibuprofen 600 mg tablet 600 mg PO Q6HP PRN (Reason: Mild Pain (Scale Score 1-4)) Patient Comments: GIVE 1 TABLET BY MOUTH WITH FOOD EVERY 6 HOURS NEEDED insulin glargine [Lantus Solostar U-100 Insulin] 100 unit/mL (3 mL) insulin pen 7 unit SQ DAILY Patient Comments: Inject 7 unit subcutaneously once a day Problem Reconciliation Problems Reviewed?: Yes Patient Discharge Instructions ACTIVITY: Continue current activity DIET: continue same diet Patient Instructions: Hyperosmolar Hyperglycemic State, DI for Heart Failure, DI for Cardiac Catheterization, DI for Urinary Tract Infection (UTI), DI for Surgical Site Infection Providers Primary Care Provider: Foreign Cotter Admdurga Provider: Diana Carlson Attending Provider: Diana Carlson
[2023-07-01] MEDS: AMIODARONE 200MG TABLET 400 MG PO (15:07)
[2023-07-01 16:45] LABS: POC Glucose,Bedside 195 (70-110)
== END 2023-07-01 16:39 | disposition home or self-care (01) | DRG 321 ==
LOC: ER 12:29 → 2ND 13:34 → ER 06-30 08:03 → 2ND 06-30 08:04
PROVIDERS: Internal Medicine; Internal Medicine Adolescent Medicine; Internal Medicine Pulmonary Disease; Nurse Practitioner; Nurse Practitioner Family; Admitting Provider Internal Medicine; Emergency Provider Emergency Medicine; PCP Internal Medicine; Visit Provider Internal Medicine
PROC: 027034Z Dilation of Coronary Artery, One Artery with Drug-eluting Intraluminal Device, Percutaneous Approach (ICD-10-PCS; principal; 2023-06-27 13:00)
DX: I21.3 ST elevation (STEMI) myocardial infarction of unspecified site (principal); E11.00 Type 2 diabetes mellitus with hyperosmolarity without nonketotic hyperglycemic-hyperosmolar coma (NKHHC); J96.01 Acute respiratory failure with hypoxia; J18.9 Pneumonia, unspecified organism; I50.21 Acute systolic (congestive) heart failure; N39.0 Urinary tract infection, site not specified; Z68.41 Body mass index [BMI] 40.0-44.9, adult; I24.9 Acute ischemic heart disease, unspecified; Z79.4 Long term (current) use of insulin; Z79.84 Long term (current) use of oral hypoglycemic drugs; M19.90 Unspecified osteoarthritis, unspecified site; E03.9 Hypothyroidism, unspecified; I25.10 Atherosclerotic heart disease of native coronary artery without angina pectoris; E66.01 Morbid (severe) obesity due to excess calories; I25.5 Ischemic cardiomyopathy; I11.0 Hypertensive heart disease with heart failure; F17.200 Nicotine dependence, unspecified, uncomplicated
CPT/HCPCS: 36415; 71275; 80048; 80053; 80076; 80202; 81001; 82009; 82140; 82803; 82810; 82962; 83036; 83605; 83690; 83735; 84100; 84145; 84484; 85007; 85025; 85347; 85610; 85730; 87040; 87081; 87086; 87581; 87632; 87635; 87798; 92610; 92928; 93005; 93306; 93460; 94760; 97110; 97116; 97162; 97166; 97530; 97535; 99152; 99153; 99291; C1725; C1769; C1874; C1876; C1894; C9600; J0282; J0456; J0696; J1644; J2260; J3370; J3475; J7060; Q9957; Q9967

== ENCOUNTER 2023-08-17 12:15 | Outpatient (CLI) | payer MEDICARE, OTHER, SELFPAY ==
--- NOTE | 2023-08-17 12:16 | CA_ITS ---
APPROVED REPORT EXAM: Limited 2D Echocardiogram Technical Advisor: Char Peterson CRT Ht: 5 ft 4 in Wt: 265lbs BSA: 2.20 BP: 90/70 mmHg Indications: abn ekg, ef25% 06/26/23 M-Mode Dimensions RVDd 2.36 cm (0.9-2.6) LA Diam 3.05 cm (1.9-4.0) LVDd 6.91 cm (3.5-5.7) LVDs 5.94 cm (3.5-5.7) IVSd 0.95 cm (0.6-1.1) PWd 0.61 cm (0.6-1.1) EF (Teich) 29.10% FS 14.00% EDV (Teich) 248.10 mL ESV (Teich) 175.90 mL Other Information Study Quality: Fair Conclusion This is a limited TTE to evaluate for LVEF. Limited windows were obtained. The LV is normal in size. There is increased LV wall thickness. There is moderate to severe global hypokinesis present. There is near akinesis of the septal, inferoseptal, and anteroseptal LV acosta. LVEF is 30%. Compared to prior study from 06/27/2023, the LVEF is overall unchanged to slightly improved (from 25% to 30%). Electronically signed by : Demetria Dinero MD 08/17/2023 22:06:35
== END 2023-08-17 23:59 | disposition home or self-care (01) ==
LOC: RT 12:16
PROVIDERS: PCP Internal Medicine; Visit Provider Physician Assistant
DX: I50.42 Chronic combined systolic (congestive) and diastolic (congestive) heart failure (principal); I25.5 Ischemic cardiomyopathy; I25.10 Atherosclerotic heart disease of native coronary artery without angina pectoris; R94.31 Abnormal electrocardiogram [ECG] [EKG]; E66.01 Morbid (severe) obesity due to excess calories; Z68.42 Body mass index [BMI] 45.0-49.9, adult
CPT/HCPCS: 93308

== ENCOUNTER 2023-09-12 10:12 | Day surgery (SDC) | payer MEDICARE, OTHER, SELFPAY ==
--- NOTE | 2023-09-12 07:22 | IR_ITS ---
APPROVED REPORT Patient Location: Outpatient Senior Java Software Engineer: RAMU Nina RT (R) PROCEDURES 1. Pocket formation for AICD. 2. Placement of atrial sensing and pacing coil into the right atrial appendage. 3. Placement of a ventricular sensing, pacing and shocking coil in the right ventricular apex. 4. Permanent AICD placement. INDICATION Systolic Congestive Heart Failure, ejection < 35%, [place] Heart Assoication Class 3 Congestive Heart Failure Informed consent was obtained prior to the procedure. COMPLICATIONS NONE Estimated Blood Loss: LESS THAN 10 ML TECHNIQUE 1% Lidocaine with epinephrine used to anesthetized the left anterior aspect of the chest. Scalpel was used to make the initial cutaneous incision while electrocautery was used to dissect down tinto the fascia. The fascia was lifted off the pectoralis muscle and digitally manipulated creating a pocket for the defibrillator. The patient was then placed in Trendelenburg position and the subclavian vein was accessed 2 times via the Selinger technique. A 8 [place] sheath was placed under fluoroscopic guidance into the subclavian vein. The dilator was removed from the sheath. Using fluoroscopic guidance, the ventricular lead was placed into the right ventricular apex, screwed and secured into place. Electronic interrogation proved acceptable thresholds and voltage within the lead. Using 3-0 silk, the ventricular lead was then secured into place and sheath peeled away. A 6 [place] fresh sheath and dilator was placed over the existing wire. Using fluoroscopic guidance, the atrial lead was then placed into the right atrial appendage and screwed and secured in place. Electrical interrogation demonstrated acceptable thresholds and voltage number. The atrial lead was then secured into place using 3-0 silk and sheath peeled away. 1 gram of Ancef was used to flush the pocket. All 3 leads were connected to generator and tested via computer. The defibrillator then secured to the fascia. Monocryl was used to close the subcutaneous layers while rupali were used to close the cutaneous layer. A pressure dressing was placed and the patient was transferred to the postop holding area in stable condition for postoperative care. INTERROGATION Generator Model number: Eugene BELLO [id number] Generator Serial number: [id number] Atrial lead model number: Tendril STS [id number] Atrial lead serial number: [id number] P-wave: 6 mV Impedance: Threshold: 1.0V @ 0.5ms Right Ventricular lead model number: Mansoor [id number] Right Ventricular lead serial number: [id number] R-wave: 11 mV Impedance: Threshold: 1.0V @ 0.5ms High Voltage Impedance: 420 Ohms Pacing Parameters: Mode: DDD Base/Max Track:60 ppm / 130 ppm No diaphragmatic stimulation at 10 volts. IMPRESSION 1. Successful pocket formation for AICD. 2. Successful placement of atrial sensing and pacing coil into the right atrial appendage. 3. Successful placement of a ventricular sensing, pacing and shocking coil in the right ventricular apex. 4. Successful permanent AICD placement. PLAN 1. Postop wound care. Electronically signed by : Monroe Lara MD 09/13/2023 14:26:47
[2023-09-12 10:51] VITALS: BMI 45.8
[2023-09-12 10:52] VITALS: BP 133/50; PULSE 74; RESP 18; O2SAT 93
[2023-09-12 11:13] VITALS: PULSE 75
--- NOTE | 2023-09-12 11:22 | SUR.PHASEII ---
Notified marysol that patient did recieve her effient and asa at [facility] this am, Dr Lara said we will proceed with the procedure.
--- NOTE | 2023-09-12 11:30 | XR_ITS ---
FINAL REPORT CLINICAL HISTORY: Confirm pacemaker/AID placement FINDINGS: CHEST, Single view Comparison: None FINDINGS: No acute pulmonary density is present. There is no pneumothorax. No evidence of edema is seen. Heart size is normal . A 2 -lead left subclavian transducer transvenous pacer device has been placed. Leads are seen positioned appropriately. IMPRESSION: Status post left subclavian transvenous pacer placement. No evidence of pneumothorax. Authenticated and ERN
[2023-09-12 11:42] LABS: Basophils # 0.1 K/mm3 (0-0.2); Basophils % 0.8 % (0.1-2.0); Eosinophils # 0.1 K/mm3 (0.0-0.4); Eosinophils % 2.2 % (0.1-12.0); Hematocrit 46.5 % (37.0-47.0); Hemoglobin 14.9 g/dL (12.2-16.2); Lymphocytes # 1.7 K/mm3 (0.7-4.5); Lymphocytes % 26.5 % (10-50); Mean Corpuscular HGB Conc 32.1 g/dL (31.8-35.4); Mean Corpuscular Hemoglobin 31.1 pg (27.0-31.2); Mean Corpuscular Volume 96.8 fl (81-99); Mean Platelet Volume 10.2 fl (7.4-10.4); Monocytes # 0.4 K/mm3 (0.1-1.0); Monocytes % 6.6 % (1.7-9.3); Neutrophils # 4.1 K/mm3 (1.8-7.8); Neutrophils % 63.9 % (37.0-80.0); Platelet Count 194 K/mm3 (142-424); Red Blood Count 4.81 M/mm3 (4.20-5.40); Red Cell Distribution Width 14.6 % (11.5-17.5); White Blood Count 6.4 K/mm3 (4.8-10.8)
[2023-09-12 11:46] LABS: Chloride 107 mmol/L (98-107); Potassium 4.4 mmoL/L (3.5-5.1); Sodium 138 mmol/L (136-145)
[2023-09-12 11:49] LABS: Anion Gap 8.4 mEq/L (5-15); Blood Urea Nitrogen 22 mg/dl (7-17); Calcium 9.1 mg/dl (8.4-10.2); Carbon Dioxide 27 mmol/L (22.0-30.0); Creatinine Clearance Estimated 47 mL/min (50-200); Estimated Glomerular Filt Rate 47 ml/min (>60); GFR (African American) 57 ML/MIN (>60); Glucose 119 mg/dl (74-100)
[2023-09-12] MEDS: LIDOCAINE 1% W/EPI 1:100,000 20ML VIAL SQ (14:30)
[2023-09-12] MEDS: CEFAZOLIN SODIUM 1 GM in 0.9 % SODIUM CHLORIDE 50 ML IV (14:32)
[2023-09-12 15:30] VITALS: BP 162/63; PULSE 71; PULSE 72; RESP 18; O2SAT 94
--- NOTE | 2023-09-12 15:35 | SUR.PHASEII ---
radiology called for portable chest.
[2023-09-12 15:45] VITALS: BP 162/63; PULSE 79; RESP 18; O2SAT 97
--- NOTE | 2023-09-12 15:50 | SUR.PHASEII ---
Notified radiology a second time of need for portable xray
--- NOTE | 2023-09-12 15:52 | SUR.PHASEII ---
Rad at beside
[2023-09-12 16:00] VITALS: BP 153/75; PULSE 73; RESP 18; O2SAT 94
[2023-09-12 16:05] VITALS: BP 102/61; PULSE 73; RESP 19; O2SAT 98
--- NOTE | 2023-09-12 16:10 | SUR.PHASEII ---
Attempted to call samuel locke to give report for d/c and ride home, no answer.
--- NOTE | 2023-09-12 16:36 | SUR.PHASEII ---
attempting to call Rogel[facility] to give report and ride for patient with no answer.
--- NOTE | 2023-09-12 17:02 | SUR.PHASEII ---
attempting to call Rogel[facility] with no answer.
--- NOTE | 2023-09-12 17:07 | SUR.PHASEII ---
Called dispatch to notify for unable to contact samuel locke, stated they would send an officer to come get patient and transport home.
--- NOTE | 2023-09-12 17:10 | SUR.PHASEII ---
Called kennel manager to get ahold of someone to take patient home
--- NOTE | 2023-09-12 17:12 | SUR.PHASEII ---
Arleen segovia [facility], stated they would contact samuel locke to get transport for patient
--- NOTE | 2023-09-12 17:30 | SUR.PHASEII ---
Someone here to take patient home, post op education given to patient and worker
--- NOTE | 2023-09-12 17:37 | SUR.PHASEII ---
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
--- NOTE | 2023-09-12 17:40 | SUR.PHASEII ---
pt out the door with employee from [facility]. D/c instructions given to patient and employee.
== END 2023-09-12 17:40 | disposition home or self-care (01) ==
PROVIDERS: Visit Provider Internal Medicine
PROC: 0JH608Z Insertion of Defibrillator Generator into Chest Subcutaneous Tissue and Fascia, Open Approach (ICD-10-PCS; CPT 33249; principal; 2023-09-12 08:45)
DX: I50.42 Chronic combined systolic (congestive) and diastolic (congestive) heart failure (principal); Z45.02 Encounter for adjustment and management of automatic implantable cardiac defibrillator; Z79.899 Other long term (current) drug therapy; Z79.4 Long term (current) use of insulin; I25.5 Ischemic cardiomyopathy; I48.0 Paroxysmal atrial fibrillation; I25.2 Old myocardial infarction; F17.210 Nicotine dependence, cigarettes, uncomplicated; E66.01 Morbid (severe) obesity due to excess calories; Z68.41 Body mass index [BMI] 40.0-44.9, adult
CPT/HCPCS: 33249; 71045; 80048; 85025; C1721; C1895; C1898; J0690

== ENCOUNTER 2023-10-09 21:13 | Emergency (ER) | payer MEDICARE, OTHER, SELFPAY ==
[2023-10-09 21:14] VITALS: BP 96/63; PULSE 75; RESP 18; TEMP 37.1; O2SAT 97; BMI 44.1
--- NOTE | 2023-10-09 21:33 | XR_ITS ---
PROCEDURE INFORMATION: Exam: XR Left Ribs with PA Chest Exam date and time: 10/09/2023 10:03 PM Age: 53 years old Clinical indication: Other: Left posterior rib pain; Additional info: Fall left posterior rib pain TECHNIQUE: Imaging protocol: Radiologic exam of the left ribs with PA chest. Views: 3 views COMPARISON: CR XR CHEST PORTABLE 09/12/2023 3:53 PM FINDINGS: Tubes, catheters and devices: Stable pacemaker. Lungs: Unremarkable. No consolidation. Pleural spaces: Unremarkable. No pleural effusion. No pneumothorax. Heart/Mediastinum: Unremarkable. No cardiomegaly. Bones/joints: Unremarkable. No rib fracture identified. IMPRESSION: No acute findings.
[2023-10-09] MEDS: IBUPROFEN 400 MG TABLET 800 MG PO (21:40)
[2023-10-09] MEDS: ACETAMINOPHEN 500MG TAB 1000 MG PO (21:40)
--- NOTE | 2023-10-09 21:42 | ED_ITS ---
Discharge Plan Disposition Patient Disposition: Home, Self-Care Condition: Good Prescriptions Prescriptions: No Action bupropion HCl 300 mg tablet extended release 24 hr PO cephalexin 500 mg capsule 500 mg PO QID 10 Days Qty: 40 0RF levothyroxine 150 mcg capsule 150 mcg PO DAILY amiodarone 200 mg tablet 200 mg PO BID 14 Days Qty: 28 0RF metformin 500 mg tablet 500 mg PO BIDWMEAL citalopram 40 mg tablet 40 mg PO DAILY norethindrone acetate 5 mg tablet 5 mg PO DAILY lactulose 10 gram/15 mL solution 30 ml PO BIDP PRN (Reason: Constipation) Patient Comments: GIVE 30ML BY MOUTH TWICE A DAY NEEDED FOR CONSTIPATION atorvastatin 40 mg Tablet 40 mg PO HS 30 Days Qty: 30 0RF aspirin 81 mg Tablet,Delayed Release (Dr/Ec) 81 mg PO DAILY 30 Days Qty: 30 0RF bumetanide 1 mg Tablet 1 mg PO DAILY 30 Days Qty: 30 0RF Jardiance 10 mg Tablet 10 mg PO DAILY 30 Days Qty: 30 0RF insulin lispro protamin-lispro [Humalog Mix 75-25 KwikPen] 100 unit/mL (75-25) Insulin Pen 40 unit SQ BIDWMEAL 30 Days Qty: 24 0RF prasugrel 10 mg Tablet 10 mg PO DAILY 30 Days Qty: 30 0RF Entresto 24-26 mg Tablet 1 tab PO BID 30 Days Qty: 60 0RF spironolactone 25 mg Tablet 25 mg PO DAILY 30 Days Qty: 30 0RF (DME) pen needle, diabetic 31 gauge x 1/4 needle See Rx Instructions .Route Qty: 100 0RF Rx Instructions: As directed Activity Restrictions/Add. Instructions Additional Instructions/Restrictions: Follow-up with your PCP for any worsening signs or symptoms or return to ER for any worsening signs or symptoms as needed Clinical Impressions Clinical Impression: Chest wall contusion Qualifiers: Encounter type: initial encounter Laterality: left Qualified Code(s): S20.212A - Contusion of left front wall of thorax, initial encounter Print Language Print Language: Kyrgyz Discharge ED Provider: Montana Fernandez General Adult HPI <AB Sinclair - Last Filed: 10/11/23 13:51> General Chief complaint: Fall Stated complaint: fall Time Seen by Provider: 10/09/23 21:24 Mode of Arrival: EMS Limitations: No Limitations Description of Symptoms (Recalled from ER Triage Doc. by RN): Pt to ED via [facility] with c/o fall earlier today and now having rib pain. EMS reports low FSBS today. FS 82 upon arrival. Pt given orange juice and penut butter and crackers. History of Present Illness HPI narrative: Patient presents for evaluation of fall. Patient was outside doing some yard work and when she stood up she had a temporary loss of balance and fell against the side of a building. She suffered no apparent injury to her head back or other things but she has been complaining of left posterior chest wall pain. She reports no difficulty breathing and at the time my exam is reading a book and eating peanut butter crackers. Related Data Home Medications ?Medication ?Instructions ?Recorded ?Confirmed citalopram 40 mg tablet 40 mg PO DAILY 06/26/23 09/26/23 lactulose 10 gram/15 mL oral 30 ml PO BIDP PRN Constipation 06/26/23 09/26/23 solution metformin 500 mg tablet 500 mg PO BIDWMEAL 06/26/23 09/26/23 norethindrone acetate 5 mg tablet 5 mg PO DAILY 06/26/23 09/26/23 bupropion HCl 300 mg 24 hr tablet, mg PO 07/27/23 09/26/23 extended release levothyroxine 150 mcg capsule 150 mcg PO DAILY 09/26/23 09/26/23 Previous Rx's ?Medication ?Instructions ?Recorded aspirin 81 mg tablet,delayed 81 mg PO DAILY 30 days #30 tabs 07/01/23 release atorvastatin 40 mg tablet 40 mg PO HS 30 days #30 tabs 07/01/23 bumetanide 1 mg tablet 1 mg PO DAILY 30 days #30 tabs 07/01/23 empagliflozin 10 mg tablet 10 mg PO DAILY 30 days #30 tabs 07/01/23 (Jardiance) insulin lispro protamine-lispro 40 unit (0.4 mL) SQ BIDWMEAL 30 07/01/23 100 unit/mL (75-25) subcutaneous days #24 mL pen (Humalog Mix 75-25 KwikPen) pen needle, diabetic 31 gauge x #100 ea 07/01/23 1/4 prasugrel 10 mg tablet 10 mg PO DAILY 30 days #30 tabs 07/01/23 sacubitril 24 mg-valsartan 26 mg 1 tab PO BID 30 days #60 tabs 07/01/23 tablet (Entresto) spironolactone 25 mg tablet 25 mg PO DAILY 30 days #30 tabs 07/01/23 amiodarone 200 mg tablet 200 mg PO BID 14 days #28 tabs 09/26/23 cephalexin 500 mg capsule 500 mg PO QID 10 days #40 caps 09/26/23 Allergies Allergy/AdvReac Type Severity Reaction Status Date / Time No Known Allergies Allergy Verified 09/26/23 14:05 [facility] <AB Sinclair - Last Filed: 10/11/23 13:51> [facility] Disclaimer: The information contained in this section may have been updated after the patient was seen, as this information can be updated by other users. Medical History (Updated 10/10/23 @ 00:04 by AB Sinclair) Hyperlipidemia Pleural effusion on right History of anemia Depressed Arthritis Hypothyroid Diabetes Social History Smoking Status: Never smoker alcohol intake: never current occupational status: other Travel in the last 8 weeks: None <AB Sinclair - Last Filed: 10/11/23 13:51> ROS Obtained: Yes Systems reviewed as appropriate & no additional complaints except as documented Physical Exam <AB Sinclair - Last Filed: 10/11/23 13:51> General General appearance: alert and in no apparent distress Neck Neck exam: Present lymphadenopathy; Absent tenderness Chest Chest inspection: Present normal inspection, symmetric chest wall rise and tenderness (Patient is tender to palpation and the left posterior rib cage. No evidence of trauma bony deformity contusions ecchymosis noted. Breath sounds are clear and equal bilaterally.) Respiratory Respiratory exam: Present normal lung sounds bilaterally; Absent respiratory distress, wheezes or accessory muscle use Cardiovascular Cardiovascular exam: Present regular rate and normal rhythm Neurological Exam Neurological exam: Present alert and oriented X3 Medical Decision Making <AB Sinclair - Last Filed: 10/11/23 13:51> Medical Records Medical records reviewed: Yes I reviewed the patient's medical records. Paramjit Inquiry Pt receiving controlled substance: No Vital Signs: 10/09/23 21:14 10/09/23 22:30 10/09/23 23:04 Temperature 98.7 F Temperature Source Oral Pulse Rate 74 76 Pulse Rate [Left Radial] 75 Respiratory Rate 18 Blood Pressure 92/60 L 96/52 L Blood Pressure [Right Arm] 96/63 L Blood Pressure Mean [Right Arm] 74 Blood Pressure Source Blood Pressure Source [Right Arm] Automatic Cuff Blood Pressure Position Blood Pressure Position [Right Arm] Sitting 02 Sat by Pulse Oximetry 97 97 100 Oxygen Delivery Method Room Air 10/09/23 23:35 10/10/23 00:02 10/10/23 00:18 Temperature 98.2 F Temperature Source Oral Pulse Rate 74 77 74 Pulse Rate [Left Radial] Respiratory Rate 18 Blood Pressure 99/58 L 96/56 L 96/56 L Blood Pressure [Right Arm] Blood Pressure Mean [Right Arm] Blood Pressure Source Automatic Cuff Blood Pressure Source [Right Arm] Blood Pressure Position Sitting Blood Pressure Position [Right Arm] 02 Sat by Pulse Oximetry 98 97 Oxygen Delivery Method Room Air Orders (Tests/Meds): ED MEDICATIONS Discontinued Medications Generic Name Dose Route Start Last Admin Trade Name Freq PRN Reason Stop Dose Admin Acetaminophen 1,000 mg 10/09/23 21:33 10/09/23 21:40 Acetaminophen 500mg Tab PO 10/09/23 21:34 1,000 mg ONCE ONE Administration Lactated Ringer's 1,000 mls @ 999 mls/hr 10/09/23 23:05 10/09/23 23:07 Lactated Ringer's 1000 Ml Bag IV 10/10/23 00:05 999 mls/hr .Q1H1M ONE Administration Ibuprofen 800 mg 10/09/23 21:33 10/09/23 21:40 Ibuprofen 400 Mg Tablet PO 10/09/23 21:34 800 mg ONCE ONE Administration ORDERS Category Date Time Status XR ribs LT min 3V w CXR1V Stat Exams 10/09/23 21:33 Completed Medical Decision Narrative: In summary patient is a 53-year-old female who presents to the emergency department for evaluation of left posterior rib pain. Patient is hemodynamically stable upon arrival, afebrile. Physical exam is remarkable for tenderness to palpation in the left posterior ribs without any evidence of trauma or bony deformity with normal breath sounds. Differential diagnosis includes contusion versus possible rib fracture. Initial workup will be conducted with plain film x-rays. Initial interventions include Tylenol Motrin p.o. Initial workup reviewed by me and my informal interpretation of her plain film x-ray shows no acute fracture. Upon repeat evaluation patient had significant reduction in her discomfort after initial intervention. Given this patient is a appropriate for discharge with strict return precautions <Montana Fernandez MD - Last Filed: 10/11/23 14:12> Vital Signs: 10/09/23 21:14 10/09/23 22:30 10/09/23 23:04 Temperature 98.7 F Temperature Source Oral Pulse Rate 74 76 Pulse Rate [Left Radial] 75 Respiratory Rate 18 Blood Pressure 92/60 L 96/52 L Blood Pressure [Right Arm] 96/63 L Blood Pressure Mean [Right Arm] 74 Blood Pressure Source Blood Pressure Source [Right Arm] Automatic Cuff Blood Pressure Position Blood Pressure Position [Right Arm] Sitting 02 Sat by Pulse Oximetry 97 97 100 Oxygen Delivery Method Room Air 10/09/23 23:35 10/10/23 00:02 10/10/23 00:18 Temperature 98.2 F Temperature Source Oral Pulse Rate 74 77 74 Pulse Rate [Left Radial] Respiratory Rate 18 Blood Pressure 99/58 L 96/56 L 96/56 L Blood Pressure [Right Arm] Blood Pressure Mean [Right Arm] Blood Pressure Source Automatic Cuff Blood Pressure Source [Right Arm] Blood Pressure Position Sitting Blood Pressure Position [Right Arm] 02 Sat by Pulse Oximetry 98 97 Oxygen Delivery Method Room Air Orders (Tests/Meds): ED MEDICATIONS Discontinued Medications Generic Name Dose Route Start Last Admin Trade Name Freq PRN Reason Stop Dose Admin Acetaminophen 1,000 mg 10/09/23 21:33 10/09/23 21:40 Acetaminophen 500mg Tab PO 10/09/23 21:34 1,000 mg ONCE ONE Administration Lactated Ringer's 1,000 mls @ 999 mls/hr 10/09/23 23:05 10/09/23 23:07 Lactated Ringer's 1000 Ml Bag IV 10/10/23 00:05 999 mls/hr .Q1H1M ONE Administration Ibuprofen 800 mg 10/09/23 21:33 10/09/23 21:40 Ibuprofen 400 Mg Tablet PO 10/09/23 21:34 800 mg ONCE ONE Administration ORDERS Category Date Time Status XR ribs LT min 3V w CXR1V Stat Exams 10/09/23 21:33 Completed Medical Decision Narrative: In summary patient is a 53-year-old female who presents to the emergency department for evaluation of left posterior rib pain. Patient is hemodynamically stable upon arrival, afebrile. Physical exam is remarkable for tenderness to palpation in the left posterior ribs without any evidence of trauma or bony deformity with normal breath sounds. Differential diagnosis includes contusion versus possible rib fracture. Initial workup will be conducted with plain film x-rays. Initial interventions include Tylenol Motrin p.o. Initial workup reviewed by me and my informal interpretation of her plain film x-ray shows no acute fracture. Upon repeat evaluation patient had significant reduction in her discomfort after initial intervention. Given this patient is a appropriate for discharge with strict return precautions I was consulted by the KAE, and we discussed the complexity of the problems being addressed. I approved the treatment and management plan for this patient's care in the Emergency Department, thus performing a substantive portion of the medical decision making. Montana Fernandez MD Critical Care <AB Sinclair - Last Filed: 10/11/23 13:51> Critical Care Time Critical Care Time: No
--- NOTE | 2023-10-09 22:25 | PC.NURSE ---
checked pt gluecose, had a result of 85.
[2023-10-09 22:30] VITALS: BP 92/60; PULSE 74; O2SAT 97
--- NOTE | 2023-10-09 22:57 | PC.NURSE ---
[employer] called to check on process
--- NOTE | 2023-10-09 23:01 | PC.NURSE ---
Rounded on pt at this time. Pt voices no needs. FS 104. Pt had 2 cereal bars, a bag of chips, and a starry.
[2023-10-09 23:04] VITALS: BP 96/52; PULSE 76; O2SAT 100
--- NOTE | 2023-10-09 23:05 | PC.NURSE ---
Kurt Romo notified of pts SBPs being in 90's. Verbal order received to give 1L bolus LR
[2023-10-09] MEDS: LACTATED RINGERS 1000ML 1,000 ML 999 ML IV (23:07)
[2023-10-09 23:35] VITALS: BP 99/58; PULSE 74; O2SAT 98
--- NOTE | 2023-10-09 23:59 | PC.NURSE ---
rounded on pt at this time. pt voices no needs.
[2023-10-10 00:02] VITALS: BP 96/56; PULSE 77; O2SAT 97
--- NOTE | 2023-10-10 00:15 | PC.NURSE ---
Spoke with [employer] employee about pt being DC and needing a ride, they state there is no one working tonight that is able to come pick pt up. Spoke with [employer] to request for an officer to give pt a ride home. They state someone will give us a call back to let us know.
[2023-10-10 00:18] VITALS: BP 96/56; PULSE 74; RESP 18; TEMP 36.8; O2SAT 97
== END 2023-10-10 00:24 | disposition home or self-care (01) ==
PROVIDERS: Emergency Provider Emergency Medicine; PCP Nurse Practitioner Acute Care
DX: S20.212A Contusion of left front wall of thorax, initial encounter (principal); R07.81 Pleurodynia; W22.8XXA Striking against or struck by other objects, initial encounter
CPT/HCPCS: 71101; 96360; 99284; J7120

== ENCOUNTER 2024-09-11 17:57 | Observation (INO) | payer MEDICARE, OTHER, SELFPAY ==
[2024-09-11] VITALS (12 sets, daily range): BP systolic 97–120; BP diastolic 53–99; PULSE 89–116; RESP 16–30; TEMP 36.9; O2SAT 91–99; BMI 43.6; BMI 44.4
--- NOTE | 2024-09-11 18:11 | ECG_ITS ---
APPROVED REPORT Exam: Resting ECG HR:107 bpm ECG Measurements Heart Rate 107 AXES MN 146 P 50 QRSd 86 QRS 241 QT 322 T 65 QTc 385 Conclusion Sinus tachycardia at [address] or T wave changes concerning for ischemia Electronically signed by : Lissette Andrade, 09/12/2024 00:31:38
--- NOTE | 2024-09-11 18:11 | HMH.EDGENADL ---
Discharge Plan Disposition Chief Complaint: Recheck/Abnormal Lab/Rx Discharge ED Provider: Lissette Andrade General Adult HPI General Chief complaint: Recheck/Abnormal Lab/Rx Stated complaint: Pacemaker shock Time Seen by Provider: 09/11/24 17:58 Mode of Arrival: EMS Source of Information: Patient and EMS Description of Symptoms (Recalled from ER Triage Doc. by RN): PT brought to the ED vis [facility] for evaluation of what the PT thought was a shock from her defibulator. History of Present Illness HPI narrative: Patient is a 54-year-old female with a past medical history of ischemic cardiomyopathy, coronary artery disease, with a pacemaker defibrillator in place who presented to the emergency department after her defibrillator shocked her just prior to arrival. Patient states that she closed her eyes and was carrying a cane when it shocked her. Patient states she did not have any chest pain or shortness of breath when this occurred. Patient states that she has otherwise felt at her baseline. Patient denies any abdominal pain nausea vomiting or diarrhea. Patient states that since her defibrillator was placed, it has never fired. Patient denies any history of blood clots. Patient is not on any blood thinners. Patient denies any headache numbness weakness or other neurologic symptoms. Patient denies any infectious symptoms such as fevers cough chills runny nose. Related Data Home Medications ?Medication ?Instructions ?Recorded ?Confirmed citalopram 40 mg tablet 40 mg PO DAILY 06/26/23 09/26/23 lactulose 10 gram/15 mL oral 30 ml PO BIDP PRN Constipation 06/26/23 09/26/23 solution metformin 500 mg tablet 500 mg PO BIDWMEAL 06/26/23 09/26/23 norethindrone acetate 5 mg tablet 5 mg PO DAILY 06/26/23 09/26/23 bupropion HCl 300 mg 24 hr tablet, mg PO 07/27/23 09/26/23 extended release levothyroxine 150 mcg capsule 150 mcg PO DAILY 09/26/23 09/26/23 Previous Rx's ?Medication ?Instructions ?Recorded aspirin 81 mg tablet,delayed 81 mg PO DAILY 30 days #30 tabs 07/01/23 release atorvastatin 40 mg tablet 40 mg PO HS 30 days #30 tabs 07/01/23 bumetanide 1 mg tablet 1 mg PO DAILY 30 days #30 tabs 07/01/23 empagliflozin 10 mg tablet 10 mg PO DAILY 30 days #30 tabs 07/01/23 (Jardiance) insulin lispro protamine-lispro 40 unit (0.4 mL) SQ BIDWMEAL 30 07/01/23 100 unit/mL (75-25) subcutaneous days #24 mL pen (Humalog Mix 75-25 KwikPen) pen needle, diabetic 31 gauge x #100 ea 07/01/2302/24 prasugrel HCl 10 mg tablet 10 mg PO DAILY 30 days #30 tabs 07/01/23 sacubitril 24 mg-valsartan 26 mg 1 tab PO BID 30 days #60 tabs 07/01/23 tablet (Entresto) spironolactone 25 mg tablet 25 mg PO DAILY 30 days #30 tabs 07/01/23 amiodarone 200 mg tablet 200 mg PO BID 14 days #28 tabs 09/26/23 cephalexin 500 mg capsule 500 mg PO QID 10 days #40 caps 09/26/23 Allergies Allergy/AdvReac Type Severity Reaction Status Date / Time No Known Allergies Allergy Verified 09/26/23 14:05 [facility] Disclaimer: The information contained in this section may have been updated after the patient was seen, as this information can be updated by other users. Medical History (Updated 10/10/23 @ 00:04 by AB Sinclair) Hyperlipidemia Pleural effusion on right History of anemia Depressed Arthritis Hypothyroid Diabetes Social History Smoking Status: Never smoker alcohol intake: never current occupational status: other Travel in the last 8 weeks?: None Have you lived/traveled outside [place] in past 30 days?: No Contact w/someone who lives/traveled outside [place] past 30 days?: No Exposure to someone with infectious disease in past 14 days?: No Do you have a fever (greater than 100.4 F or 38 C)?: No Have you tested positive for COVID-19?: No Exposed to someone with COVID-19 in past 14 days?: No Do you have a sore throat?: No Do you have a cough?: No Do you have any weakness?: No Do you have any diarrhea?: No Are you experiencing any unusual bleeding?: No Do you have any muscle aches/pain?: No Do you have any abdominal pain?: No Are you experiencing loss of taste or smell?: No Other Medical History Have you received the Flu Vaccine for this season: No Have you received the Pneumonia Vaccine: No ROS Obtained: Yes All systems reviewed & no additional complaints except as documented and Yes Systems reviewed as appropriate & no additional complaints except as documented Physical Exam General General appearance: alert and in no apparent distress Head Head exam: atraumatic and normocephalic Eye Eye exam: Present normal appearance, PERRL and EOMI ENT ENT exam: Present normal exam and normal external ear exam Neck Neck exam: Present normal inspection and full ROM Chest Chest inspection: Present normal inspection and symmetric chest wall rise Respiratory Respiratory exam: Present normal lung sounds bilaterally; Absent respiratory distress Cardiovascular Cardiovascular exam: Present regular rate, normal rhythm and normal heart sounds Abdominal Exam Abdominal exam: Present soft and distention; Absent tenderness, guarding or rebound Extremities Exam Extremities exam: Present normal inspection and full ROM; Absent tenderness Back Exam Back exam: Present normal inspection and full ROM Neurological Exam Neurological exam: Present alert and oriented X3 Psychiatric Psychiatric exam: Present normal affect and normal mood Skin Skin exam: Present warm, dry and intact Medical Decision Making Medical Records Medical records reviewed: Yes I reviewed the patient's medical records. Screening: Per USPSTF and CDC recommendations, given the prevalence of disease in our region, it is our hospital?s policy to screen for HIV and viral Hepatitis for all patients aged 18 and over and those with ongoing risk factors. Paramjit Inquiry Pt receiving controlled substance: No Vital Signs: 09/11/24 18:00 09/11/24 19:00 09/11/24 19:54 Temperature 98.4 F Temperature Source Oral Pulse Rate 107 H 94 H Pulse Rate [Right] 116 H Respiratory Rate 18 30 H 17 Blood Pressure 101/66 L 100/69 L Blood Pressure [Right Arm] 108/88 L Blood Pressure Mean [Right Arm] 94 02 Sat by Pulse Oximetry 96 96 99 Oxygen Delivery Method Room Air 09/11/24 20:00 09/11/24 20:30 09/11/24 21:01 Temperature Temperature Source Pulse Rate 92 H 89 95 H Pulse Rate [Right] Respiratory Rate 24 22 16 Blood Pressure 114/73 120/77 113/99 H Blood Pressure [Right Arm] Blood Pressure Mean [Right Arm] 02 Sat by Pulse Oximetry 97 97 91 L Oxygen Delivery Method 09/11/24 21:30 09/11/24 22:05 09/11/24 22:30 Temperature Temperature Source Pulse Rate 91 H 97 H 90 Pulse Rate [Right] Respiratory Rate 23 26 H 22 Blood Pressure 120/74 97/53 L 109/74 L Blood Pressure [Right Arm] Blood Pressure Mean [Right Arm] 02 Sat by Pulse Oximetry 94 L 96 97 Oxygen Delivery Method Lab Data Lab results reviewed: Yes I reviewed the patient's lab results. Lab Results 09/11/24 20:55: Troponin I 0.10 H 09/11/24 Unknown 09/11/24 Unknown Orders (Tests/Meds): ED MEDICATIONS Generic Name Dose Route Start Last Admin Trade Name Freq PRN Reason Stop Dose Admin Acetaminophen 650 mg 09/11/24 22:28 Acetaminophen 325mg Tab PO 10/11/24 22:27 Q4HP PRN Fever or Mild Pain (1-3) Enoxaparin Sodium 40 mg 09/12/24 09:00 Enoxaparin 40mg/0.4ml Syringe SUBCUT 10/12/24 08:59 DAILY RACHEL Ondansetron HCl 4 mg 09/11/24 22:28 Ondansetron 4mg/2ml Vial IV 10/11/24 22:27 Q8HP PRN Nausea Pantoprazole Sodium 40 mg 09/12/24 21:00 Pantoprazole 40mg Tablet PO 10/12/24 20:59 HS RACHEL Sodium Chloride 10 ml 09/11/24 20:15 09/11/24 20:15 Sodium Chloride 0.9% 10ml Syr (Rad Only) IV 10/11/24 20:14 10 ml NEEDED PRN Administration Maintain IV Site Discontinued Medications Generic Name Dose Route Start Last Admin Trade Name Freq PRN Reason Stop Dose Admin Sodium Chloride 1,000 mls @ 999 mls/hr 09/11/24 19:07 09/11/24 19:17 Sod Chlor 0.9% 1000ml Bag IV 09/11/24 20:07 999 mls/hr .Q1H1M ONE Administration Iopamidol 75 ml 09/11/24 20:15 09/11/24 20:16 Iopamidol-370 (76%);100ml Bottle IV 09/11/24 20:16 75 ml ONCE ONE Administration Sodium Chloride 50 ml 09/11/24 20:15 09/11/24 20:16 0.9 % Sodium Chloride 50 Ml Vial IV 09/11/24 20:16 50 ml ONCE ONE Administration ORDERS Category Date Time Status CT angio chest PE protocol Stat Cat Scan 09/11/24 19:22 Completed Consult to Case Management [CONS] Routine Cons 09/11/24 22:29 Active CXR --portable [XR chest portable] Stat Exams 09/11/24 18:22 Completed CBC w/Auto Diff [Complete Blood Count Auto Diff] Stat Lab 09/11/24 Completed CMP [Comprehensive Metabolic Panel] Stat Lab 09/11/24 Completed Complete Blood Count Auto Diff AMLAB Lab 09/12/24 06:00 Ordered Comprehensive Metabolic Panel AMLAB Lab 09/12/24 06:00 Ordered D-Dimer Stat Lab 09/11/24 Completed HIV Combo Stat Lab 09/11/24 Received Hepatitis C Ab Qual. W/ RFX Stat Lab 09/11/24 Completed Magnesium AMLAB Lab 09/12/24 06:00 Ordered Trop I [Troponin I] Stat Lab 09/11/24 Completed Troponin I Q3H Lab 09/11/24 20:55 Completed Troponin I Q3H Lab 09/12/24 00:30 Ordered ECG Request Routine Y 09/11/24 22:28 Ordered ECG Data Tracing #1: I reviewed this ECG and interpreted as documented below: Sinus tachycardia at [address] or T wave changes concerning for ischemia Tracing #2: I reviewed this ECG and interpreted as documented below: Sinus tachycardia at [address] or T wave changes concerning for ischemia Tracing #3: I reviewed this ECG and interpreted as documented below: Normal sinus rhythm [address] or T wave changes concerning for ischemia Medical Decision Narrative: Patient is a 54-year-old female with a past medical history of ischemic cardiomyopathy, AICD, pacemaker defibrillator in place, previous coronary artery disease who presented to the emergency department after her defibrillator fired. Patient had no chest pain shortness of breath and patient was asymptomatic on arrival. On arrival, patient was tachycardic but otherwise normotensive. Differential includes but not limited to: ACS/FL, pulmonary embolism, pneumonia, pleural effusion, arrhythmia, electrolyte abnormalities, amongst others. Patient's labs were reviewed and interpreted by myself, CBC showed mild leukocytosis, hemoglobin was stable, D-dimer was elevated at 1.3. CMP notable for mildly elevated creatinine at 1.6 mildly elevated bilirubin at 1.4. Initial troponin was 0.04, repeat troponin was 0.1.Chest x-ray was reviewed and interpreted by myself and showed no acute focal consolidation, pneumothorax, pleural effusion or other acute cardiopulmonary process. CT PE was reviewed and interpreted by myself and showed no pulmonary embolism. Given patient's rising troponins I felt the patient warranted admission for serial troponins. Cardiology was consulted. They recommended admission for defibrillator interrogation, echo in the morning. Hospital medicine was consulted and patient was ultimately admitted to their service for further evaluation workup. Critical Care Critical Care Time Critical Care Time: No
--- OUTSIDE RECORDS SUMMARY | 2024-09-11 18:13 | XMS_ITS | Clinical Summary ---
Author Organization [facility] Address [address] [place] [address] Phone Care Team Providers Care General Practice Name Role Phone Unavailable Primary Care Provider Unavailabl e Allergies No known active allergies Medications * This document contains information received from the source organization and may not represent a complete record from that organization. 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 08/15/2023 Complicated grief 03/14/2023 08/15/2023 Medication monitoring encounter 05/27/2018 08/15/2023 Recurrent depressive disorde r, current episode mild 05/27/2018 08/15/2023 Anxiety disorder, unspecified 05/27/2018 08/15/2023 Social History Tobacco Use Types Packs/Day Years Used Date Smoking Tobacco: Never Assessed Comments Unknown Sex and Gender Information Value Date Recorded Sex Assigned at Not on file Legal Sex Female 1:03 PM EDT Gender Identity Not on file Sexual Orientation Not on file Obstetrics History Plan of Treatment Health Maintenance Due Date Last Done Comments Wellness Exam Medicare 1973 DTaP/TDaP/Td (1 - Tdap) 1989 Hepatitis B Vaccine (1 of 3 - 19+ 3-dose series) 1989 Cervical Cancer Screening 05/10/1991 Pap Smear 05/10/1991 HPV/Pap Cotest 2000 Breast Cancer Screening 2010 Cologuard 05/10/2015 Colon Cancer Screening 05/10/2015 Colonoscopy 05/10/2015 FIT 05/10/2015 Sigmoidoscopy 05/10/2015 Virtual Colonography 05/10/2015 Pneumococcal Vaccine 50+ (1 of 1 - PCV) 2020 Zoster (1 of 2) 2020 COVID-19 Vaccine (1 - 2023-2 5 season) 2023 Influenza Vaccine (#1) 2024 Meningococcal B Vaccine Aged Out No l onger eligible based on patient's age to complete this topic Insurance [employer] [facility] [place] [address] MEDICARE [place] PART A AND B
--- NOTE | 2024-09-11 18:22 | XR_ITS ---
PROCEDURE INFORMATION: Exam: XR Chest Exam date and time: 09/11/2024 6:26 PM Age: 54 years old Clinical indication: Other: Pacemaker shocked her, eval pacemaker TECHNIQUE: Imaging protocol: Radiologic exam of the chest. Views: 1 view. COMPARISON: CR XR RIBS LT MIN 3V W CXR1V 10/09/2023 10:03 PM FINDINGS: Tubes, catheters and devices: ICD pacemaker leads are unchanged. Lungs: See Heart/Mediastinum finding. Pleural spaces: Unremarkable. No pleural effusion. No pneumothorax. Heart/Mediastinum: Cardiomegaly. Enlarged pulmonary arteries likely represent chronic pulmonary arterial hypertension. Bones/joints: Unremarkable. IMPRESSION: No acute findings.
[2024-09-11 18:28] LABS: Hematocrit 38.8 % (37.0-47.0); Hemoglobin 12.6 g/dL (12.2-16.2); Immature Granulocytes % 0.6 %; Mean Corpuscular HGB Conc 32.5 g/dL (31.8-35.4); Mean Corpuscular Hemoglobin 30.1 pg (27.0-31.2); Mean Corpuscular Volume 92.6 fl (81-99); Nucleated Red Blood Cells % 0 %; Platelet Count 181 K/mm3 (142-424); Red Blood Count 4.19 M/mm3 (4.20-5.40); Red Cell Distribution Width-SD 44.8 fL; White Blood Count 11.9 K/mm3 (4.8-10.8)
[2024-09-11 18:38] LABS: Alanine Aminotransferase 29 U/L (12-78); Albumin Level 3.9 g/dl (3.5-5.0); Albumin/Globulin Ratio 1.2 (1.1-1.8); Alkaline Phosphatase 82 U/L (38-126); Anion Gap 13.8 mEq/L (5-15); Aspartate Amino Transferase 33 U/L (14-36); Bilirubin,Total 1.4 mg/dl (0.2-1.3); Blood Urea Nitrogen 19 mg/dl (7-17); Calcium 9.3 mg/dl (8.4-10.2); Carbon Dioxide 22 mmol/L (22.0-30.0); Chloride 102 mmol/L (98-107); Creatinine Clearance Estimated 35 mL/min (50-200); Creatinine,Serum 1.60 mg/dl (0.52-1.04); Estimated Glomerular Filt Rate 34 ml/min (>60); GFR (African American) 41 ML/MIN (>60); Globulin 3.3 g/dL (1.3-3.2); Glucose 225 mg/dl (74-100); Potassium 3.8 mmoL/L (3.5-5.1); Sodium 134 mmol/L (136-145); Total Protein,Serum 7.2 g/dl (6.3-8.2)
[2024-09-11 18:43] LABS: D-Dimer 1.30 ug/mL (0.0-0.5)
[2024-09-11 18:52] LABS: Troponin I 0.04 ng/ml (0.00-0.034)
--- NOTE | 2024-09-11 19:11 | ECG_ITS ---
APPROVED REPORT Exam: Resting ECG HR:105 bpm ECG Measurements Heart Rate 105 AXES TN 143 P 52 QRSd 80 QRS -36 QT 327 T 65 QTc 388 Conclusion Sinus tachycardia [address] or T wave changes concerning for ischemia Electronically signed by : Lissette Andrade, 09/12/2024 00:31:12
[2024-09-11] MEDS: 0.9 % SODIUM CHLORIDE 1000ML 1,000 ML 999 ML IV (19:17)
--- NOTE | 2024-09-11 19:22 | CT_ITS ---
PROCEDURE INFORMATION: Exam: CTA Chest With Contrast Exam date and time: 09/11/2024 8:09 PM Age: 54 years old Clinical indication: Other: Elevated dimer; Additional info: Elevated dimer, pacemaker firing TECHNIQUE: Imaging protocol: Computed tomographic angiography of the chest with contrast. Exam focused on the arteries. 3D rendering (Not supervised by radiologist): MIP and/or 3D reconstructed images were created by the technologist. Radiation optimization: All CT scans at this facility use at least one of these dose optimization techniques: automated exposure control; mA and/or kV adjustment per patient size (includes targeted exams where dose is matched to clinical indication); or iterative reconstruction. Contrast material: ISOVUE; Contrast volume: 70 ml; Contrast route: INTRAVENOUS (IV); COMPARISON: CT ANGIO CHEST 06/26/2023 11:19 AM FINDINGS: Tubes, catheters and devices: Cardiac pacemaker is noted. Pulmonary arteries: No pulmonary emboli. Enlarged pulmonary arteries likely represent chronic pulmonary arterial hypertension. Aorta: The left vertebral artery originates directly from the aorta. Lungs: Mild bibasilar atelectasis. Pleural spaces: Unremarkable. No pneumothorax. No pleural effusion. Heart: Unremarkable. No cardiomegaly. No pericardial effusion. Coronary arteries: Advanced atherosclerotic disease of the LAD. Lymph nodes: Unremarkable. No enlarged lymph nodes. Adrenal glands: Mild left adrenal thickening similar to prior study. Kidneys: Left perinephric edema, which is partially visible. Bones/joints: Unremarkable. No acute fracture. Soft tissues: Unremarkable. IMPRESSION: 1. No pulmonary emboli. 2. Left perinephric edema, which is partially visible. Please exclude pyelonephritis. If clinically warranted, consider dedicated abdominal imaging. 3. Advanced atherosclerotic disease of the LAD.
[2024-09-11 20:13] LABS: Hepatitis C Ab Qual. W/ RFX NEGATIVE (Negative)
[2024-09-11] MEDS: SODIUM CHLORIDE 0.9% 10ML SYR (RAD ONLY) 10 ML IV (20:15)
[2024-09-11] MEDS: IOPAMIDOL-370 (76%);100ML BOTTLE 75 ML IV (20:16)
[2024-09-11] MEDS: 0.9 % SODIUM CHLORIDE 50 ML VIAL IV (20:16)
--- NOTE | 2024-09-11 20:53 | ECG_ITS ---
APPROVED REPORT Exam: Resting ECG HR:89 bpm ECG Measurements Heart Rate 89 AXES MS 160 P 69 QRSd 89 QRS 130 QT 374 T 56 QTc 421 Conclusion Normal sinus rhythm [address] or T wave changes concerning for ischemia Electronically signed by : Lissette Andrade, 09/12/2024 00:33:29
--- NOTE | 2024-09-11 21:06 | PC.NURSE ---
@approx 2049 pts rhythm noted to change with to a wide complex at rate 120. Pt denies any symptoms or feeling any changes at time. A&Ox4. BP 113/99. O2 97%. RR 18. MD Andrade notified. EKG obtained and given to .
[2024-09-11 21:36] LABS: Troponin I 0.10 ng/ml (0.00-0.034)
--- NOTE | 2024-09-11 23:14 | PC.NURSE ---
Patient arrived to floor via wheelchair from ED at 23:13.
[2024-09-12] VITALS: PULSE 85
[2024-09-12 01:52] LABS: Troponin I 0.09 ng/ml (0.00-0.034)
--- NOTE | 2024-09-12 03:56 | PC.NURSE ---
Alert and oriented. No complaints since patient arrived to floor. NSR on tele. Room air. Ambulates to the restroom with standby assist. Call light in reach.
[2024-09-12 04:00] VITALS: BP 110/41; PULSE 90; PULSE 91; RESP 20; TEMP 36.8; O2SAT 95; BMI 44.4
--- NOTE | 2024-09-12 04:00 | EXP.HP ---
History of Present Illness *Admission Date: 09/11/24 *Reason for visit:: Automatic defibrillator fired and increased troponin *History of present illness: Patient who lives in a assisted care facility, noted today that an ICD that she had had for quite some time that has never fired fired today.. People that care for her felt it would be prudent for her to come to the hospital and she agreed. After arriving here the implanted defibrillator has not fired again. But noted to have slightly elevated troponin. So patient will be admitted to the floor monitored overnight on continuous oven unloader cardiology has been consulted and labs will be repeated in the morning. Unsure if this was a mechanical malfunction versus that the patient had a abnormal run of V. tach/V-fib Presently is stable and will place on the floor [facility] Disclaimer: The information contained in this section may have been updated after the patient was seen, as this information can be updated by other users. Medical History (Updated 09/12/24 @ 04:04 by Karsten Johnson APRN) ICD (implantable cardioverter-defibrillator), dual, in situ Tonsillectomy planned Hyperlipidemia Pleural effusion on right History of anemia Depressed Arthritis Hypothyroid Diabetes Social History (Updated 09/11/24 @ 23:45 by Lou Moralez RN) Smoking Status: Never smoker alcohol intake: never current occupational status: other Travel in the last 8 weeks?: None Have you lived/traveled outside US in past 30 days?: No Contact w/someone who lives/traveled outside US past 30 days?: No Exposure to someone with infectious disease in past 14 days?: No Do you have a fever (greater than 100.4 F or 38 C)?: No Have you tested positive for COVID-19?: No Exposed to someone with COVID-19 in past 14 days?: No Do you have a sore throat?: No Do you have a cough?: No Do you have any weakness?: No Are you experiencing any nausea/vomitting?: No Do you have any diarrhea?: No Are you experiencing any unusual bleeding?: No Do you have any muscle aches/pain?: No Do you have any abdominal pain?: No Are you experiencing loss of taste or smell?: No Other Medical History Have you received the Flu Vaccine for this season: Yes Have you received the Pneumonia Vaccine: No Review of Systems Review of Systems Review of systems:: pertinent systems reviewed and negative unless documented below Constitutional Constitutional: Reports as per HPI Comments: Mentally limited female, pleasant but not able to do full self-care. Has agreed to stay as long as her cat is taken care of Eyes Eyes: Reports as per HPI ENT Ears, Nose, Mouth, and Throat: Reports as per HPI *Cardiovascular Cardiovascular: Reports as per HPI *Respiratory Respiratory: Reports as per HPI *Gastrointestinal Gastrointestinal: Reports as per HPI *Genitourinary Genitourinary: Reports as per HPI *Musculoskeletal Musculoskeletal: Reports as per HPI Integumentary/Breasts Skin/Breast: Reports as per HPI *Neurologic Neurologic: Reports as per HPI Psychiatric Psychiatric: Reports as per HPI Endocrine Endocrine: Reports as per HPI Hematologic/Lymphatic Hematologic/Lymphatic: Reports as per HPI Allergic/Immunologic Allergic/Immunologic: Reports as per HPI Meds Home Medications and Allergies Home Medications ?Medication ?Instructions ?Recorded ?Confirmed ?Type citalopram 40 mg tablet 40 mg PO DAILY 06/26/23 09/11/24 History lactulose 10 gram/15 mL oral 30 ml PO BIDP PRN Constipation 06/26/23 09/11/24 History solution metformin 500 mg tablet 500 mg PO BIDWMEAL 06/26/23 09/11/24 History norethindrone acetate 5 mg tablet 5 mg PO DAILY 06/26/23 09/11/24 History aspirin 81 mg tablet,delayed 81 mg PO DAILY 30 days #30 tabs 07/01/23 09/11/24 Rx release atorvastatin 40 mg tablet 40 mg PO HS 30 days #30 tabs 07/01/23 09/11/24 Rx bumetanide 1 mg tablet 1 mg PO DAILY 30 days #30 tabs 07/01/23 09/11/24 Rx empagliflozin 10 mg tablet 10 mg PO DAILY 30 days #30 tabs 07/01/23 09/11/24 Rx (Jardiance) insulin lispro protamine-lispro 40 unit (0.4 mL) SQ BIDWMEAL 30 07/01/23 09/11/24 Rx 100 unit/mL (75-25) subcutaneous days #24 mL pen (Humalog Mix 75-25 KwikPen) pen needle, diabetic 31 gauge x #100 ea 07/01/23 09/11/24 Rx 1/4 prasugrel HCl 10 mg tablet 10 mg PO DAILY 30 days #30 tabs 07/01/23 09/11/24 Rx sacubitril 24 mg-valsartan 26 mg 1 tab PO BID 30 days #60 tabs 07/01/23 09/11/24 Rx tablet (Entresto) spironolactone 25 mg tablet 25 mg PO DAILY 30 days #30 tabs 07/01/23 09/11/24 Rx bupropion HCl 300 mg 24 hr tablet, 300 mg PO DAILY 07/27/23 09/11/24 History extended release levothyroxine 150 mcg capsule 150 mcg PO DAILY 09/26/23 09/11/24 History cholecalciferol (vitamin D3) 1,250 1,250 mcg PO WEEKLY 09/11/24 09/11/24 History mcg (50,000 unit) capsule New Prescriptions to Start Prescriptions: Allergies Allergy/AdvReac Type Severity Reaction Status Date / Time No Known Allergies Allergy Verified 09/26/23 14:05 Exam Data for Last 24 hours Vital signs and Labs for Last 24 Hours: Temp Pulse Resp BP Pulse Ox O2 Del Method 98.5 F 85 18 102/70 L 97 Room Air 09/11/24 23:33 09/12/24 00:00 09/11/24 23:33 09/11/24 23:33 09/11/24 23:33 09/12/24 02:57 Laboratory Results - last 24 hr 09/11/24 20:55: Troponin I 0.10 H 09/11/24 : WBC 11.9 H, RBC 4.19 L, Hgb 12.6, Hct 38.8, MCV 92.6, MCH 30.1, MCHC 32.5, RDW 13.3, Plt Count 181, MPV 10.2, Neut % (Auto) 74.9, Lymph % (Auto) 16.2, Catron % (Auto) 7.8, Eos % (Auto) 0.2, Baso % (Auto) 0.3, Neut # (Auto) 8.9 H, Lymph # (Auto) 1.9, Catron # (Auto) 0.9, Eos # (Auto) 0.0, Baso # (Auto) 0.0, D-Dimer 1.30 H, Sodium 134 L, Potassium 3.8, Chloride 102, Carbon Dioxide 22, Anion Gap 13.8, BUN 19 H, Creatinine 1.60 H, Estimated Creat Clear 35, Estimated GFR 34 L, Est GFR ( Amer) 41 L, Glucose 225 H, Calcium 9.3, Total Bilirubin 1.4 H, AST 33, ALT 29, Alkaline Phosphatase 82, Troponin I 0.04 H, Total Protein 7.2, Albumin 3.9, Globulin 3.3 H, Albumin/Globulin Ratio 1.2, HCV Ab SHANNON w/Rflx PCR Qn Negative, HIV Ag/Ab Combo Qual Negative 09/12/24 01:09: Troponin I 0.09 H I & O for Last 24 hours: Intake & Output 09/09/24 09/10/24 09/11/24 09/12/24 05:59 05:59 05:59 05:59 Intake Total 1180 / 1180 Balance 1180 / 1180 Weight 260 lb Constitutional Constitutional: no acute distress Comments: Patient is calm and cooperative at this time showing no distress has no chest pain *Routine HEENT Exam Head: Present normocephalic and atraumatic Eye: Present EOMI ENT: Present mucous membranes moist *Routine Neck Exam Neck: Present supple *Routine Respiratory Exam Respiratory: Present CTA bilaterally, normal respiratory effort, able to speak in complete sentences and symmetric chest movement *Routine Cardiovascular Exam Cardiovascular: Present RRR, Normal S1 and Normal S2 *Routine Abdominal Exam Abdominal: Present soft and normoactive bowel sounds *Routine Rectal Exam Rectal:: deferred *Routine Genitalia Exam Genitalia:: deferred *Routine Extremities Exam Extremities: Present full ROM, pulses intact and normal capillary refill *Routine Skin Exam Skin: Present intact, dry and warm *Routine Neurological Exam Neurological: Present alert, oriented X3, CN II-XII intact, vision grossly intact, hearing grossly intact and normal speech H&P: Result Impressions 1. ICD fired, cause unknown has never happened before patient asymptomatic, has elevated troponin no ST elevation patient Assessment and Plan *Assessment and plan (1) ICD (implantable cardioverter-defibrillator) discharge: Status: Acute Category: Medical Code(s): Z45.02 - Encounter for adjustment and management of automatic implantable cardiac defibrillator (2) Elevated troponin: Status: Acute Category: Medical Code(s): R79.89 - Other specified abnormal findings of blood chemistry (3) Abnormal electrocardiogram [ECG] [EKG]: Status: Acute Category: Medical Code(s): R94.31 - Abnormal electrocardiogram [ECG] [EKG] Plan ER provider talked to Dr. Lara will place the patient as inpatient continue to monitor tonight the pacemaker will be interrogated tomorrow. Presently patient doing well sleeping in the bed. History of decreased self-care ability related to the lecture level. Patient living in an assisted care facility
[2024-09-12 04:54] VITALS: BP 96/55
--- NOTE | 2024-09-12 05:20 | CA_ITS ---
APPROVED REPORT EXAM: Comprehensive 2D, Doppler, and color-flow Echocardiogram Neckties Painter: Claire Gunter, RCS, RVS Ht: 5 ft 4 in Wt: 260lbs BSA: 2.19 BP: 102/70 mmHg Indications: Elevated tropnin, AICD, Hx-CM last ef 25%-06/2023, Hypothyroidism , Assisted living resident. Echo Enhancing Agent Comments: TDS: Due to patient in constant motion 2D Dimensions Left Atrium 3.58 cm F: 2.7 - 3.8 LVEF (Patel's) 37.00 % F: 54 - 74 LV Volume 164.40 mL F: 46 - 106 LV Volume Index 75.295761 mL/m2 F: 29 - 61 LA Volume 62.60 mL LA Volume Index 28.277249 mL/m2 (M/F) 16-34 EF AP4 35.30 % EF AP2 41.3 % EF BP 37.0 % GL Strain -13.9 % M-Mode Dimensions RVDd 2.09 cm (0.9-2.6) LA Diam 3.51 cm (1.9-4.0) LVDd 6.15 cm (3.5-5.7) LVDs 5.02 cm (3.5-5.7) IVSd 0.96 cm (0.6-1.1) PWd 0.96 cm (0.6-1.1) EF (Teich) 37.30% FS 18.40% EDV (Teich) 190.40 mL TAPSE 2.26 (<1.7) ESV (Teich) 119.30 mL LV Diastology E Decel Time 103 (160-240 msec) E/A Ratio 1.30 MED A' 10.20 cm/s LAT A' 13.10 cm/s Aortic Valve JOSEPH Index 1.00 cm2/m2 AoV Peak Vivek. 137.0 (50-130 cm/s) AO Peak GR. 7.50 mmHg AO Mean GR. 3.70 (<5 mmHg) AO VTI 22.8 (18-25 cm) JOSEPH (VTI) 2.23 (2.5-4.5 cm2) Mitral Valve MV A Velocity 67.0 (40-130 cm/s) E/A Ratio 1.30 Tricuspid Valve TR P. Velocity 225.00 cm/s RAP Estimate 10.00 mmHg RVSP 30.30 mmHg Left Ventricle The left ventricle is normal size. The left ventricular systolic function is mildly reduced. There is normal left ventricular wall thickness. There is mild global hypokinesis is present. The septum is asynchronous. Grade 1 diastolic dysfunction is present. LVEF is 45%. Right Ventricle Right ventricle is mildly dilated. The right ventricular systolic function is normal. There is a device lead in the right ventricle. Atria Left atrium is mildly dilated. Right atrium is mildly dilated. There is no Doppler evidence of interatrial shunt. Aortic Valve The aortic valve is mildly thickened. There is no aortic valvular stenosis. No aortic regurgitation is present. Mitral Valve The mitral valve is normal in structure. No evidence of mitral valve stenosis. Mild mitral regurgitation. Tricuspid Valve Tricuspid valve is grossly normal in structure and function. Mild tricuspid regurgitation. RVSP is normal. Pulmonic Valve The pulmonary valve is normal in structure. Trace pulmonic regurgitation. Great Vessels The aortic root is normal in size. IVC is normal in size and collapses >50% with inspiration. Pericardium There is no pericardial effusion. Other Information Study Quality: Fair Conclusion Milldy reduced LV systolic function (LVEF 45%). Mildly dilated RV with normal RV function. Mild biatrial dilation. Mild MR, mild TR. Electronically signed by : Demetria Dinero MD 09/12/2024 12:02:58
[2024-09-12 06:28] LABS: Hematocrit 39.8 % (37.0-47.0); Hemoglobin 12.8 g/dL (12.2-16.2); Immature Granulocytes % 0.4 %; Mean Corpuscular HGB Conc 32.2 g/dL (31.8-35.4); Mean Corpuscular Hemoglobin 30.3 pg (27.0-31.2); Mean Corpuscular Volume 94.1 fl (81-99); Nucleated Red Blood Cells % 0 %; Platelet Count 170 K/mm3 (142-424); Red Blood Count 4.23 M/mm3 (4.20-5.40); Red Cell Distribution Width-SD 45.5 fL; White Blood Count 9.8 K/mm3 (4.8-10.8)
[2024-09-12 06:57] LABS: Alanine Aminotransferase 24 U/L (12-78); Albumin Level 3.8 g/dl (3.5-5.0); Albumin/Globulin Ratio 1.2 (1.1-1.8); Alkaline Phosphatase 76 U/L (38-126); Anion Gap 11.0 mEq/L (5-15); Aspartate Amino Transferase 28 U/L (14-36); Bilirubin,Total 0.9 mg/dl (0.2-1.3); Blood Urea Nitrogen 19 mg/dl (7-17); Calcium 9.4 mg/dl (8.4-10.2); Carbon Dioxide 27 mmol/L (22.0-30.0); Chloride 105 mmol/L (98-107); Creatinine Clearance Estimated 40 mL/min (50-200); Creatinine,Serum 1.40 mg/dl (0.52-1.04); Estimated Glomerular Filt Rate 39 ml/min (>60); GFR (African American) 47 ML/MIN (>60); Globulin 3.2 g/dL (1.3-3.2); Glucose 82 mg/dl (74-100); Magnesium 2.3 mg/dl (1.6-2.3); Potassium 4.0 mmoL/L (3.5-5.1); Sodium 139 mmol/L (136-145); Total Protein,Serum 7.0 g/dl (6.3-8.2)
[2024-09-12 08:00] VITALS: BP 107/46; PULSE 89; PULSE 95; RESP 18; TEMP 36.9; O2SAT 97
--- NOTE | 2024-09-12 09:07 | HMH.OTEV ---
OT Inpatient Evaluation Rehab OT IP Evaluation Start: 09/11/24 23:45 Freq: ONCE Status: Active Protocol: Document 09/12/24 08:59 NIKUNJ (Rec: 09/12/24 09:07 NIKUNJ [id number]) Rehab OT IP Assessment Subjective History PER HPI narrative: Patient is a 54-year-old female with a past medical history of ischemic cardiomyopathy, coronary artery disease, with a pacemaker defibrillator in place who presented to the emergency department after her defibrillator shocked her just prior to arrival. Patient states that she closed her eyes and was carrying a cane when it shocked her. Patient states she did not have any chest pain or shortness of breath when this occurred. Patient states that she has otherwise felt at her baseline. Patient denies any abdominal pain nausea vomiting or diarrhea. Patient states that since her defibrillator was placed, it has never fired. Patient denies any history of blood clots . Patient is not on any blood thinners. Patient denies any headache numbness weakness or other neurologic symptoms. Patient denies any infectious symptoms such as fevers cough chills runny nose. Subjective I have been already up to bathroom. Pt lives at [facility] and is ind in ADL and can perform cleaning duties in room. [facility] reports [facility] cooking and will clean if pt asks. Pt reports they do no drive, do not use AD. Pt supine in bed when therapy arrived. Pt orient x3. Pt agreed to initial OT eval this AM. Pt reported they needed to use bathroom. Pt went from supine to EOB Ind. Pt then completed STS with no AD, ind. Pt then completed FM task of aprox 8 ft from bed to bathroom ind. Pt then performed toileting and toilet hygiene with SBA per safety. Pt then completed STS from toilet and completed FM task of aprox 4 ft from toilet to sink and completed hand hygiene with SBA per safety. Pt then completed FM task of aprox 10 ft from bathroom to chair and sat in chair. Pt demo good activity tolerance and good endurance. Pt left sitting in chair with all needs within reach. Call light did not reach pt, nursing notified of pt sitting in chair with feet propped and curtain and door open for easy viewing of pt. Nursing reported they would check in on pt, pt's room next to main nursing station. Objective Patient Orientation Person,Place,Birthday Right Upper WFL Extremity Gross ROM Left Upper Extremity WFL Gross ROM Bed Mobility bed mobility-scooting,bed mobility - supine/sit Assist Level Independent Transfer Training Sit/Stand Transfer Assist Level Independent Chair Transfer Independent Ability Chair Transfer Sit to/from Ambulatory Technique Chair Transfer None Assistive Devices Overall Commode/ Standby Assistance Toilet Transfer Ability Commode/Toilet Sit to/from Ambulatory Transfer Technique Commode/Toilet Grab Bars Transfer Assistive Devices Decrease in No Endurance Rehab OT IP prob,goals,plan Problems Date of Evaluation: 09/12/24 Rehab Potential Rehab Potential Innapropriate for Skilled Therapy Discharge Plan OT Discharge Plan At this time, pt is at baseline and would not benefit from skilled acute OT while at [facility]. Once pt is DC, pt can return to prior living arrangement with no further interventions or skilled OT services needed if pt does not decline while at [facility]. Eval Complexity Eval Charge Codes 50461 - Moderate Complexity PHYSICIAN CERTIFICATION: I certify the specified therapy services for Bernice Denton are required, authorized, and reviewed every 30 days.
[2024-09-12 09:11] LABS: Cholesterol 120 mg/dl (140-200); HDL Cholesterol 35 mg/dl (40-60); Triglycerides 106 mg/dl (30-150)
--- NOTE | 2024-09-12 10:03 | SW/DCPLANNER ---
Addendum entered by Lexis Davidson 09/12/24 10:42: I have updated Elke pfeiffer/ P[facility]rez Locke that patient will return this afternoon. Original Note: Patient resides at [facility]. Per PTOT patient is independent. Will continue to follow up with pérez locke until patient is ready for discharge.
--- NOTE | 2024-09-12 10:13 | HMH.PTEV ---
Physical Therapy Evaluation Rehab PT IP Evaluation Start: 09/11/24 23:45 Freq: ONCE Status: Active Protocol: Document 09/12/24 09:59 KAYY (Rec: 09/12/24 10:13 PHOTRISTEN [id number]) Subjective/History History History 54 yowf who lives in a assisted care facility, noted today that an ICD that she had had for quite some time that has never fired fired today.. People that care for her felt it would be prudent for her to come to the hospital and she agreed. After arriving here the implanted defibrillator has not fired again. But noted to have slightly elevated troponin. So patient will be admitted to the floor monitored overnight on continuous bus driver/monitor cardiology has been consulted and labs will be repeated in the morning. Unsure if this was a mechanical malfunction versus that the patient had a abnormal run of V. tach/V-fib. Pt reports she is generally independent with all mobility without an AD and independent with all ADLs at baseline. Subjective Subjective Pt reports no c/o this am and readily agrees to mobility assessment. [facility] How much help from another person do you currently need... Turning from your None back to your side while in a flat bed without using bedrails? Moving from lying on None back to sitting on the side of a flat bed without using bedrails? Moving to and from a None bed to a chair ( including a wheelchair)? Standing up from a None chair using your arms? (e.g., wheelchair, bedside chair) Walking in hospital None room? Climbing 3-5 steps None with a railing? Mobility Score 24 Mobility Level [place] [id number] Walk 250 feet or more Mobility Calculator Rehab PT IP Eval Objective Appearance Patient Behavior Appropriate Patient Orientation Person,Place,Time Difficulty following none instructions Speech Pattern Clear Ambulation Patient Able to Yes Ambulate Ambulation Observation IP General Gait No Deviations/Normal Pattern Observation Ambulation Distance 200 (feet) Ambulation Assistive None Device Ambulation Ability Independent Balance Ability to Arise Able, w/o using arms Sitting Balance Steady, safe Standing Balance Narrow stance w/o support Dynamic Sitting Good Balance Ability Dynamic Standing Good Balance Ability Transfers Bed Transfer Ability Independent Chair Transfer Independent Ability Sit to Stand Bed Independent Transfer Ability Sit to Stand Chair Independent Transfer Ability ROM All Extremities PT ROM Status WFL MMT All Extremities PT MMT WFL Rehab PT IP prob,goals,plan Problems Date of Evaluation: 09/12/24 Discharge Plan PT Discharge Plan Pt is currently appropriate to return to personal fdc once medically stable for d/c and is at baseline for all mobility. No current skilled acute therapy needs at this time. Eval Complexity Eval Charge Codes 67289 - High Complexity PHYSICIAN CERTIFICATION: I certify the specified therapy services for Bernice Denton are required, authorized, and reviewed every 30 days.
[2024-09-12 11:29] LABS: POC Glucose,Bedside 140 (70-110)
[2024-09-12 11:47] VITALS: BP 96/52; PULSE 85; RESP 16; TEMP 37.3; O2SAT 99
--- NOTE | 2024-09-12 13:50 | SW/DCPLANNER ---
Called [facility] to get patient a ride a home. [facility] stated that it will be about an hour before they arrive to get patient. The conformation number is [id number] Marlon Nelson
--- NOTE | 2024-09-12 14:04 | EXP.CARD.CON ---
History of Present Illness History of Present Illness Consult date: 09/12/24 Requesting physician: Diana Carlson Chief complaint: AICD discharge History of present illness: This is a 54-year-old white female who presented to the emergency department after her AICD fired. The patient states that [facility] boxes into a recycling. When she suddenly felt her AICD shocked her. Prior to this she had no symptoms and even after the shock she had no symptoms. She states that she has been feeling great up until this time and still does not feel bad but came to the emergency department because she knew her defibrillator had shocked her. She denies any chest pain or pressure. She denies any shortness of breath or edema. She denies any fever, chills, nausea, vomiting, diarrhea, PND or orthopnea. She did have an elevated troponin on admission at 0.10 which is most likely from her defibrillator firing. [facility] Disclaimer: The information contained in this section may have been updated after the patient was seen, as this information can be updated by other users. Medical History (Updated 09/12/24 @ 14:09 by Ngozi Collado APRN) Atrial fibrillation with RVR Abnormal electrocardiogram [ECG] [EKG] Coronary artery disease Heart failure with reduced ejection fraction STEMI (ST elevation myocardial infarction) Acute hypoxic respiratory failure Hyperosmolar hyperglycemic state (HHS) ACS (acute coronary syndrome) ICD (implantable cardioverter-defibrillator) discharge Heart failure with improved ejection fraction (HFimpEF) ICD (implantable cardioverter-defibrillator), dual, in situ Tonsillectomy planned Hyperlipidemia Pleural effusion on right History of anemia Depressed Arthritis Hypothyroid Diabetes Surgical History (Updated 09/12/24 @ 14:07 by Ngozi Collado APRN) AICD (automatic cardioverter/defibrillator) present Social History (Updated 09/11/24 @ 23:45 by Lou Moralez RN) Smoking Status: Never smoker alcohol intake: never current occupational status: other Travel in the last 8 weeks?: None Review of Systems Review of Systems Review of systems:: pertinent systems reviewed and negative unless documented below Constitutional Constitutional: Reports system reviewed and no additional complaints, except as documented Eyes Eyes: Reports system reviewed and no additional complaints, except as documented ENT Ears, Nose, Mouth, and Throat: Reports system reviewed and no additional complaints, except as documented *Cardiovascular Cardiovascular: Reports system reviewed and no additional complaints, except as documented *Respiratory Respiratory: Reports system reviewed and no additional complaints, except as documented *Gastrointestinal Gastrointestinal: Reports system reviewed and no additional complaints, except as documented *Genitourinary Genitourinary: Reports system reviewed and no additional complaints, except as documented *Musculoskeletal Musculoskeletal: Reports system reviewed and no additional complaints, except as documented Integumentary/Breasts Skin/Breast: Reports system reviewed and no additional complaints, except as documented *Neurologic Neurologic: Reports system reviewed and no additional complaints, except as documented and Reports as per HPI Psychiatric Psychiatric: Reports system reviewed and no additional complaints, except as documented Endocrine Endocrine: Reports system reviewed and no additional complaints, except as documented Hematologic/Lymphatic Hematologic/Lymphatic: Reports system reviewed and no additional complaints, except as documented Allergic/Immunologic Allergic/Immunologic: Reports system reviewed and no additional complaints, except as documented Exam Data for Last 24 hours Vital signs and Labs for Last 24 Hours: Temp Pulse Resp BP Pulse Ox O2 Del Method 99.1 F 85 16 96/52 L 99 Room Air 09/12/24 11:47 09/12/24 11:47 09/12/24 11:47 09/12/24 11:47 09/12/24 11:47 09/12/24 11:47 Laboratory Results - last 24 hr 09/11/24 20:55: Troponin I 0.10 H 09/11/24 : WBC 11.9 H, RBC 4.19 L, Hgb 12.6, Hct 38.8, MCV 92.6, MCH 30.1, MCHC 32.5, RDW 13.3, Plt Count 181, MPV 10.2, Neut % (Auto) 74.9, Lymph % (Auto) 16.2, [place] % (Auto) 7.8, Eos % (Auto) 0.2, Baso % (Auto) 0.3, Neut # (Auto) 8.9 H, Lymph # (Auto) 1.9, [place] # (Auto) 0.9, Eos # (Auto) 0.0, Baso # (Auto) 0.0, D-Dimer 1.30 H, Sodium 134 L, Potassium 3.8, Chloride 102, Carbon Dioxide 22, Anion Gap 13.8, BUN 19 H, Creatinine 1.60 H, Estimated Creat Clear 35, Estimated GFR 34 L, Est GFR ( Amer) 41 L, Glucose 225 H, Calcium 9.3, Total Bilirubin 1.4 H, AST 33, ALT 29, Alkaline Phosphatase 82, Troponin I 0.04 H, Total Protein 7.2, Albumin 3.9, Globulin 3.3 H, Albumin/Globulin Ratio 1.2, HCV Ab SHANNON w/Rflx PCR Qn Negative, HIV Ag/Ab Combo Qual Negative 09/12/24 01:09: Troponin I 0.09 H 09/12/24 05:22: WBC 9.8, RBC 4.23, Hgb 12.8, Hct 39.8, MCV 94.1, MCH 30.3, MCHC 32.2, RDW 13.2, Plt Count 170, MPV 10.1, Neut % (Auto) 73.7, Lymph % (Auto) 18.6, [place] % (Auto) 6.8, Eos % (Auto) 0.2, Baso % (Auto) 0.3, Neut # (Auto) 7.2, Lymph # (Auto) 1.8, [place] # (Auto) 0.7, Eos # (Auto) 0.0, Baso # (Auto) 0.0, Sodium 139, Potassium 4.0, Chloride 105, Carbon Dioxide 27, Anion Gap 11.0, BUN 19 H, Creatinine 1.40 H, Estimated Creat Clear 40, Estimated GFR 39 L, Est GFR ( Amer) 47 L, Glucose 82 D, Calcium 9.4, Magnesium 2.3, Total Bilirubin 0.9, AST 28, ALT 24, Alkaline Phosphatase 76, Total Protein 7.0, Albumin 3.8, Globulin 3.2, Albumin/Globulin Ratio 1.2, Triglycerides 106, Cholesterol 120 L, LDL Cholesterol Direct 59.00 L, VLDL Cholesterol 21, HDL Cholesterol 35 L, Cholesterol/HDL Ratio 3.4 09/12/24 11:17: POC Glucose 140 H I & O for Last 24 hours: Intake & Output 09/09/24 09/10/24 09/11/24 09/12/24 23:59 23:59 23:59 23:59 Intake Total 2140 / 2140 Output Total 1500 / 1500 Balance 640 / 640 Weight 260 lb 260 lb Constitutional Constitutional: no acute distress and average body habitus *Routine HEENT Exam Head: Present normocephalic and atraumatic ENT: Present mucous membranes moist *Routine Neck Exam Neck: Present supple, full ROM and normal carotid upstroke; Absent JVD, carotid bruit or lymphadenopathy *Routine Respiratory Exam Respiratory: Present CTA bilaterally, normal respiratory effort, able to speak in complete sentences and symmetric chest movement *Routine Cardiovascular Exam Cardiovascular: Present RRR, Normal S1 and Normal S2; Absent murmur or gallop *Routine Abdominal Exam Abdominal: Present soft and normoactive bowel sounds; Absent tenderness, distended or organomegaly *Routine Extremities Exam Extremities: Present full ROM, pulses intact and normal capillary refill; Absent cyanosis, clubbing or edema *Routine Skin Exam Skin: Present intact and warm; Absent erythema *Routine Neurological Exam Neurological: Present alert, oriented X3 and CN II-XII intact; Absent sensory deficit or motor deficit Routine Psychiatric Exam Psychiatric: Present normal affect Meds Home Medications and Allergies Home Medications ?Medication ?Instructions ?Recorded ?Confirmed ?Type citalopram 40 mg tablet 40 mg PO DAILY 06/26/23 09/11/24 History lactulose 10 gram/15 mL oral 30 ml PO BIDP PRN Constipation 06/26/23 09/11/24 History solution metformin 500 mg tablet 500 mg PO BIDWMEAL 06/26/23 09/11/24 History norethindrone acetate 5 mg tablet 5 mg PO DAILY 06/26/23 09/11/24 History aspirin 81 mg tablet,delayed 81 mg PO DAILY 30 days #30 tabs 07/01/23 09/11/24 Rx release atorvastatin 40 mg tablet 40 mg PO HS 30 days #30 tabs 07/01/23 09/12/24 Rx bumetanide 1 mg tablet 1 mg PO DAILY 30 days #30 tabs 07/01/23 09/11/24 Rx empagliflozin 10 mg tablet 10 mg PO DAILY 30 days #30 tabs 07/01/23 09/11/24 Rx (Jardiance) insulin lispro protamine-lispro 40 unit (0.4 mL) SQ BIDWMEAL 30 07/01/23 09/11/24 Rx 100 unit/mL (75-25) subcutaneous days #24 mL pen (Humalog Mix 75-25 KwikPen) pen needle, diabetic 31 gauge x #100 ea 07/01/23 09/11/24 Rx 1/4 prasugrel HCl 10 mg tablet 10 mg PO DAILY 30 days #30 tabs 05/10/24 07/23/25 Rx sacubitril 24 mg-valsartan 26 mg 1 tab PO BID 30 days #60 tabs 07/01/23 09/11/24 Rx tablet (Entresto) spironolactone 25 mg tablet 25 mg PO DAILY 30 days #30 tabs 07/01/23 09/11/24 Rx bupropion HCl 300 mg 24 hr tablet, 300 mg PO DAILY 07/27/23 09/11/24 History extended release levothyroxine 150 mcg capsule 150 mcg PO DAILY 09/26/23 09/11/24 History cholecalciferol (vitamin D3) 1,250 1,250 mcg PO WEEKLY 09/11/24 09/11/24 History mcg (50,000 unit) capsule amiodarone 200 mg tablet 200 mg PO BID 14 days #28 tabs 09/12/24 Rx clopidogrel 75 mg tablet 75 mg PO DAILY 14 days #14 tabs 09/12/24 Rx rivaroxaban 10 mg tablet (Xarelto) 20 mg (2 x 10 mg) PO QPMWITHMEAL 09/12/24 Rx 14 days #28 tabs New Prescriptions to Start Prescriptions: amiodarone Aldo,Irfan clopidogrel Aldo,Irfan rivaroxaban [Xarelto] Aldo,Irfan Allergies Allergy/AdvReac Type Severity Reaction Status Date / Time No Known Allergies Allergy Verified 09/26/23 14:05 Assessment and Plan *Assessment and plan (1) ICD (implantable cardioverter-defibrillator) discharge: Status: Acute Category: Medical Code(s): Z45.02 - Encounter for adjustment and management of automatic implantable cardiac defibrillator (2) Atrial fibrillation with RVR: Status: Resolved Category: Medical Code(s): I48.91 - Unspecified atrial fibrillation (3) Elevated troponin: Status: Acute Category: Medical Code(s): R79.89 - Other specified abnormal findings of blood chemistry (4) Coronary artery disease: Status: Acute Qualifiers: Coronary Disease-Associated Artery/Lesion type: [place] artery [place] vs. transplanted heart: [place] heart Associated angina: without angina Qualified Code(s): I25.10 - Atherosclerotic heart disease of [place] coronary artery without angina pectoris Category: Medical Code(s): I25.10 - Atherosclerotic heart disease of [place] coronary artery without angina pectoris (5) Hyperlipidemia: Status: Acute Qualifiers: Hyperlipidemia type: mixed hyperlipidemia Qualified Code(s): E78.2 - Mixed hyperlipidemia Category: Medical Code(s): E78.5 - Hyperlipidemia, unspecified (6) Heart failure with improved ejection fraction (HFimpEF): Status: Acute Category: Medical Code(s): I50.20 - Unspecified systolic (congestive) heart failure (7) AICD (automatic cardioverter/defibrillator) present: Status: Acute Category: Surgical Code(s): Z95.810 - Presence of automatic (implantable) cardiac defibrillator Plan Plan: 1. The patient presented to the emergency department after her AICD fired. She does have an elevated troponin which is likely from the discharge of her AICD. No plans for invasive left cardiac catheterization at this time. 2. However on an outpatient basis the patient would benefit from an ischemic evaluation with stress testing because she does have a known history of coronary artery disease. 3. The patient's AICD was interrogated. The patient did have ATP with a shock delivered. However she was not in ventricular tachycardia or ventricular fibrillation, she was actually in atrial fibrillation with RVR with a rate in the 200s and that is why her device shocked her because her heart rate was so high. 4. The patient was previously on amiodarone for suppression of questionable atrial fibrillation. She has stopped taking her amiodarone and she does not know why. Will restart her on amiodarone 200 mg p.o. twice daily for suppression of her atrial fibrillation. She is currently in sinus rhythm. 5. The patient will need to be on long-term anticoagulation secondary to the atrial fibrillation. Will start her on Xarelto 20 mg p.o. nightly. 6. Coronary artery disease is present. Stop aspirin and Effient. Start Plavix 75 mg daily. The patient will be on both Plavix and Xarelto. 7. The patient does have a history of HFrEF but her ejection fraction is now up to 45 to 50%, she has HFimpEF. 8. Restart Entresto and Jardiance for her history of heart failure. 9. Will also restart Bumex and spironolactone for her heart failure. 10. Her blood pressure is on the low side. No room to add a beta-zion at this time. 11. Her LDL goal is less than 55. Her LDL is 59. She is on a statin. 12. No further recommendations at this time from a cardiac standpoint. The patient can be discharged home today from a cardiac standpoint with follow-up next week in cardiology clinic to be set up for outpatient stress testing. 12. The patient will need to be discharged on the following cardiac medications: Amiodarone 200 mg p.o. twice daily Atorvastatin 40 mg p.o. nightly Bumex 1 mg daily Entresto 24/26 mg twice daily Jardiance 10 mg daily Plavix 75 mg daily Xarelto 20 mg p.o. nightly Spironolactone 25 mg daily Stop aspirin and Effient Thank you for the opportunity to help her to spend the care of this patient. All recommendations and orders are per Dr. Dinero.
--- NOTE | 2024-09-12 17:42 | EXP.DC.SUM ---
General Admission date:: 09/11/24 Discharge date: 09/12/24 HPI HPI HPI: Patient who lives in a assisted care facility, noted today that an ICD that she had had for quite some time that has never fired fired today.. People that care for her felt it would be prudent for her to come to the hospital and she agreed. After arriving here the implanted defibrillator has not fired again. But noted to have slightly elevated troponin. So patient will be admitted to the floor monitored overnight on continuous cardiac rehabilitation specialist cardiology has been consulted and labs will be repeated in the morning. Unsure if this was a mechanical malfunction versus that the patient had a abnormal run of V. tach/V-fib Presently is stable and will place on the floor Hospital Course Hospital Course Hospital Course: patient was admited for device interrogation and was evaluated by cardiology. Patient was then recommended the following and was deemed stable for dc 1. The patient presented to the emergency department after her AICD fired. She does have an elevated troponin which is likely from the discharge of her AICD. No plans for invasive left cardiac catheterization at this time. 2. However on an outpatient basis the patient would benefit from an ischemic evaluation with stress testing because she does have a known history of coronary artery disease. 3. The patient's AICD was interrogated. 4. The patient was previously on amiodarone for suppression of questionable atrial fibrillation. She has stopped taking her amiodarone and she does not know why. Will restart her on amiodarone 200 mg p.o. twice daily for suppression of her atrial fibrillation. She is currently in sinus rhythm. 5. The patient will need to be on long-term anticoagulation secondary to the atrial fibrillation. Will start her on Xarelto 20 mg p.o. nightly. 6. Coronary artery disease is present. Stop aspirin and Effient. Start Plavix 75 mg daily. The patient will be on both Plavix and Xarelto. 7. The patient does have a history of HFrEF but her ejection fraction is now up to 45 to 50%, she has HFimpEF. 8. Restart Entresto and Jardiance for her history of heart failure. 9. Will also restart Bumex and spironolactone for her heart failure. 10. Her blood pressure is on the low side. No room to add a beta-zion at this time. 11. Her LDL goal is less than 55. Her LDL is 59. She is on a statin. 12. No further recommendations at this time from a cardiac standpoint. The patient can be discharged home today from a cardiac standpoint with follow-up next week in cardiology clinic to be set up for outpatient stress testing. 12. The patient will need to be discharged on the following cardiac medications: Amiodarone 200 mg p.o. twice daily Atorvastatin 40 mg p.o. nightly Bumex 1 mg daily Entresto 24/26 mg twice daily Jardiance 10 mg daily Plavix 75 mg daily Xarelto 20 mg p.o. nightly Spironolactone 25 mg daily Stop aspirin and Effient Exam Data for Last 24 hours Vital signs and Labs for Last 24 Hours: Temp Pulse Resp BP Pulse Ox O2 Del Method 99.1 F 85 16 96/52 L 99 Room Air 09/12/24 11:47 09/12/24 11:47 09/12/24 11:47 09/12/24 11:47 09/12/24 11:47 09/12/24 13:00 I & O for Last 24 hours: Intake & Output 09/11/24 09/12/24 09/13/24 09/14/24 23:59 23:59 23:59 23:59 Intake Total 2140 / 2140 Output Total 1500 / 1500 Balance 640 / 640 Weight 117.934 kg 117.934 kg DS: Diagnosis Discharge Diagnosis (1) ICD (implantable cardioverter-defibrillator) discharge: Status: Acute Code(s): Z45.02 - Encounter for adjustment and management of automatic implantable cardiac defibrillator (2) Atrial fibrillation with RVR: Status: Resolved Code(s): I48.91 - Unspecified atrial fibrillation (3) Elevated troponin: Status: Acute Code(s): R79.89 - Other specified abnormal findings of blood chemistry (4) Coronary artery disease: Status: Acute Code(s): I25.10 - Atherosclerotic heart disease of [place] coronary artery without angina pectoris Qualifiers: Associated angina: without angina Coronary Disease-Associated Artery/Lesion type: [place] artery [place] vs. transplanted heart: [place] heart Qualified Code(s): I25.10 - Atherosclerotic heart disease of [place] coronary artery without angina pectoris (5) Hyperlipidemia: Status: Acute Code(s): E78.5 - Hyperlipidemia, unspecified Qualifiers: Hyperlipidemia type: mixed hyperlipidemia Qualified Code(s): E78.2 - Mixed hyperlipidemia (6) Heart failure with improved ejection fraction (HFimpEF): Status: Acute Code(s): I50.20 - Unspecified systolic (congestive) heart failure (7) AICD (automatic cardioverter/defibrillator) present: Status: Acute Code(s): Z95.810 - Presence of automatic (implantable) cardiac defibrillator Meds Home Medications and Allergies Home Medications ?Medication ?Instructions ?Recorded ?Confirmed ?Type citalopram 40 mg tablet 40 mg PO DAILY 06/26/23 09/11/24 History lactulose 10 gram/15 mL oral 30 ml PO BIDP PRN Constipation 06/26/23 09/11/24 History solution metformin 500 mg tablet 500 mg PO BIDWMEAL 06/26/23 09/11/24 History norethindrone acetate 5 mg tablet 5 mg PO DAILY 06/26/23 09/11/24 History atorvastatin 40 mg tablet 40 mg PO HS 30 days #30 tabs 07/01/23 09/12/24 Rx bumetanide 1 mg tablet 1 mg PO DAILY 30 days #30 tabs 07/01/23 09/11/24 Rx empagliflozin 10 mg tablet 10 mg PO DAILY 30 days #30 tabs 07/01/23 09/11/24 Rx (Jardiance) insulin lispro protamine-lispro 40 unit (0.4 mL) SQ BIDWMEAL 30 07/01/23 09/11/24 Rx 100 unit/mL (75-25) subcutaneous days #24 mL pen (Humalog Mix 75-25 KwikPen) pen needle, diabetic 31 gauge x #100 ea 07/01/23 09/11/24 Rx 1/4 sacubitril 24 mg-valsartan 26 mg 1 tab PO BID 30 days #60 tabs 07/01/23 09/11/24 Rx tablet (Entresto) spironolactone 25 mg tablet 25 mg PO DAILY 30 days #30 tabs 07/01/23 09/11/24 Rx bupropion HCl 300 mg 24 hr tablet, 300 mg PO DAILY 07/27/23 09/11/24 History extended release levothyroxine 150 mcg capsule 150 mcg PO DAILY 09/26/23 09/11/24 History cholecalciferol (vitamin D3) 1,250 1,250 mcg PO WEEKLY 09/11/24 09/11/24 History mcg (50,000 unit) capsule amiodarone 200 mg tablet 200 mg PO BID 14 days #28 tabs 09/12/24 Rx clopidogrel 75 mg tablet 75 mg PO DAILY 14 days #14 tabs 09/12/24 Rx rivaroxaban 10 mg tablet (Xarelto) 20 mg (2 x 10 mg) PO QPMWITHMEAL 09/12/24 Rx 14 days #28 tabs New Prescriptions to Start Prescriptions: amiodarone Aldo,Irfan clopidogrel Aldo,Irfan rivaroxaban [Xarelto] Aldo,Irfan Allergies Allergy/AdvReac Type Severity Reaction Status Date / Time No Known Allergies Allergy Verified 09/26/23 14:05 Discharge Plan Disposition Patient Disposition: Home, Self-Care Condition: Good Follow up Plan Follow up with: Ngozi Collado APRN [Nurse Practitioner, Cardiology] - 09/25/24 10:15 am Prescriptions/Medication Reconciliation: New amiodarone 200 mg Tablet 200 mg PO BID 14 Days Qty: 28 0RF clopidogrel 75 mg Tablet 75 mg PO DAILY 14 Days Qty: 14 0RF Xarelto 10 mg Tablet 20 mg PO QPMWITHMEAL 14 Days Qty: 28 0RF Continued bupropion HCl 300 mg tablet extended release 24 hr 300 mg PO DAILY levothyroxine 150 mcg capsule 150 mcg PO DAILY metformin 500 mg tablet 500 mg PO BIDWMEAL citalopram 40 mg tablet 40 mg PO DAILY norethindrone acetate 5 mg tablet 5 mg PO DAILY lactulose 10 gram/15 mL solution 30 ml PO BIDP PRN (Reason: Constipation) Patient Comments: GIVE 30ML BY MOUTH TWICE A DAY NEEDED FOR CONSTIPATION atorvastatin 40 mg Tablet 40 mg PO HS 30 Days Qty: 30 0RF bumetanide 1 mg Tablet 1 mg PO DAILY 30 Days Qty: 30 0RF Jardiance 10 mg Tablet 10 mg PO DAILY 30 Days Qty: 30 0RF insulin lispro protamin-lispro [Humalog Mix 75-25 KwikPen] 100 unit/mL (75-25) Insulin Pen 40 unit SQ BIDWMEAL 30 Days Qty: 24 0RF Entresto 24-26 mg Tablet 1 tab PO BID 30 Days Qty: 60 0RF spironolactone 25 mg Tablet 25 mg PO DAILY 30 Days Qty: 30 0RF (DME) pen needle, diabetic 31 gauge x 1/4 needle See Rx Instructions .Route Qty: 100 0RF Rx Instructions: As directed cholecalciferol (vitamin D3) 1,250 mcg (50,000 unit) capsule 1,250 mcg PO WEEKLY Discontinued aspirin 81 mg Tablet,Delayed Release (Dr/Ec) 81 mg PO DAILY 30 Days Qty: 30 0RF prasugrel HCl 10 mg Tablet 10 mg PO DAILY 30 Days Qty: 30 0RF Problem Reconciliation Problems Reviewed?: Yes Patient Discharge Instructions ACTIVITY: Continue current activity DIET: continue same diet Patient Instructions: DI for Chest Pain Print Language: Irish Providers Primary Care Provider: Provider,Referral Admit Provider: Trever Cody Attending Provider: Trever Cody
--- NOTE | 2024-09-13 10:22 | SW/DCPLANNER ---
Patient is a resident at [facility]. [place] Licensed Physical Therapist Assistant
== END 2024-09-12 14:18 | disposition home or self-care (01) ==
LOC: ER 18:19 → 2ND 22:32
PROVIDERS: Nurse Practitioner Family; Admitting Provider Internal Medicine Adolescent Medicine; Emergency Provider Student in an Organized Health Care Education/Training Program; Visit Provider Internal Medicine Adolescent Medicine
DX: Z45.02 Encounter for adjustment and management of automatic implantable cardiac defibrillator (principal); R79.89 Other specified abnormal findings of blood chemistry; R00.0 Tachycardia, unspecified; I25.10 Atherosclerotic heart disease of native coronary artery without angina pectoris; I48.91 Unspecified atrial fibrillation; E03.9 Hypothyroidism, unspecified; I50.20 Unspecified systolic (congestive) heart failure; E78.5 Hyperlipidemia, unspecified; E11.9 Type 2 diabetes mellitus without complications; Z79.4 Long term (current) use of insulin; Z87.09 Personal history of other diseases of the respiratory system; Z95.810 Presence of automatic (implantable) cardiac defibrillator; Z79.84 Long term (current) use of oral hypoglycemic drugs; Z79.01 Long term (current) use of anticoagulants; Z79.02 Long term (current) use of antithrombotics/antiplatelets; Z79.899 Other long term (current) drug therapy; Z79.890 Hormone replacement therapy
CPT/HCPCS: 36415; 71045; 71275; 80053; 80061; 82962; 83735; 84484; 85025; 85378; 86803; 87389; 93005; 93306; 96360; 97163; 97166; 99285; G0378; J1650; J7030; Q9967

== ENCOUNTER 2024-10-16 08:01 | Outpatient (CLI) | payer MEDICARE, OTHER, SELFPAY ==
--- NOTE | 2024-10-16 | CA_ITS ---
APPROVED REPORT Exam: Pharmacologic Technologist: Rubina Cardenas Ht: 5 ft 4 in Wt: 258 lbs BSA: 2.18 m2 HR: 81 bpm BP: 101/60 mmHg Medical History Medications: Amiodarone, Atorvastatin, Bumetanide, Bupropion HCI XL, Vit D3, Citalopram, Clopidogrel, Jardiance, Humalog, Lactulose, Levothyroxine, Metformin, Xarelto, Entresto, Spironolactone, Norethindrone-actate. Stress Test Details Test: Lexiscan Reason for pharmacologic stress test: physical limitation. HR Resting HR: 81 bpm Max Heart Rate (APMHR): 166.838586 bpm Max HR Achieved: 94 bpm Target HR (85% APMHR): 141.369406 bpm % of APMHR: 56.63 Recovery HR: 89 bpm BP Resting BP: 101.0/60.0 mmHg Max BP: 108.0/60.0 mmHg Recovery BP: 105.0/67.0 mmHg ECG Stress ECG Conclusion Symptoms: None. Arrhythmias/Ectopy: None. ST-T Changes: less than 0.5mm upsloping ST segment changes. Conclusion: Nondiagnostic ECG/Lexiscan. Electronically signed by : Demetria Dinero MD 10/16/2024 18:23:16
--- NOTE | 2024-10-16 08:00 | NM_ITS ---
APPROVED REPORT Exam: Nuclear Stress Test Indication: diabetes,,cad,,abn ecg Patient Location: Outpatient Stress Tech: Carol Lew NM Tech:June Morales RAMU RT (R)(N)(M) Ht: 5 ft 4 in Wt: 258 lbs Bra Size: 46dd HR: 81 bpm BP: 101/60 mmHg BSA: 2.18 m2 TID: 0.92 BMI: 44.2 History: diabetes,,cad,,abn ecg Procedure: Patient received 0.4 mg of intravenous Lexiscan, resting heart rate 81 bpm, resting blood pressure 101/60 mmHg, with Lexiscan maximum heart rate achieved was 94 bpm which is 85 % of the maximum predicted heart rate and blood pressure was 108/60 mmHg. With Lexiscan, patient denied any complaint of chest pain. Cardiac Stress and Resting SPECT Images: Cardiac Stress and Resting SPECT images were obtained using technetium 99m Myoview 29.4 mCi stress and 10.66 mCi at rest. Resting and stress imaging in supine and prone positions demonstrate a large sized, severe, predominantly fixed perfusion defect in the anterior, septal, anteroseptal, and apical LV acosta. There is a small region of reversibility towards the septal LV wall. Gated imaging demonstrates moderate to severe reduction in global LV systolic function. There is akinesis of the anterior, septal, and apical LV acosta. LVEF is calculated at 30%. Conclusion: Large sized, severe, predominantly fixed perfusion defect in the anterior, septal, anteroseptal, and apical LV acosta. There is a small region of reversibility towards the septal LV wall. Gated imaging demonstrates moderate to severe reduction in global LV systolic function. There is akinesis of the anterior, septal, and apical LV acosta. LVEF is calculated at 30%. Electronically signed by : Demetria Dinero MD 10/16/2024 12:23:25
--- OUTSIDE RECORDS SUMMARY | 2024-10-16 08:10 | XMS_ITS | Clinical Summary ---
Author Organization [facility] Address [address] [place] [address] Phone Care Team Providers Care Windlasser Name Role Phone Unavailable Primary Care Provider [...] age to complete this topic Insurance [employer] [facility] [place] [address] [address]
[2024-10-16] MEDS: SODIUM CHLORIDE 0.9% 10ML SYR (RAD ONLY) 10 ML IV ×2 (08:15→09:45)
[2024-10-16] MEDS: ISOTOPE MYOVIEW (PER STUDY) 1 DOSE IV (11:27)
== END 2024-10-16 23:59 | disposition home or self-care (01) ==
LOC: RAD 08:06
PROVIDERS: Visit Provider Nurse Practitioner Family
DX: I25.10 Atherosclerotic heart disease of native coronary artery without angina pectoris (principal); E11.9 Type 2 diabetes mellitus without complications; R94.31 Abnormal electrocardiogram [ECG] [EKG]; R79.89 Other specified abnormal findings of blood chemistry; R94.39 Abnormal result of other cardiovascular function study
CPT/HCPCS: 78452; 93016; 93017; 93018; A9502; J2785

== ENCOUNTER 2024-11-26 07:57 | Day surgery (SDC) | payer MEDICARE, OTHER, SELFPAY ==
[2024-11-26] VITALS (13 sets, daily range): BP systolic 95–116; BP diastolic 50–87; PULSE 77–85; RESP 18–20; O2SAT 95–99; BMI 46.5
--- NOTE | 2024-11-26 07:14 | IR_ITS ---
APPROVED REPORT Patient Location: Outpatient Deckhand Tuna Boat: RAMU Torres RT (R) PROCEDURES Left heart catheterization Left ventriculogram Selective coronary angiogram Drug-eluting stent deployment to the proximal LAD INDICATION Coronary artery disease, Abnormal Myoview, Angina pectoris, Informed consent was obtained prior to the procedure. COMPLICATIONS NONE Estimated Blood Loss: LESS THAN 10 ML TECHNIQUE One percent lidocaine used to anesthetize the right anterior aspect of the wrist. The right radial artery was accessed via the Seldinger technique. A 6 Khmer sheath was placed in the right radial artery. 2.5 mg of Verapamil, 800 mcg of nitroglycerin, 1mg Lidocaine and 5000 U Heparin were given through the arterial sheath. The JL3 catheter was also used to perform left heart catheterization, left ventriculogram and selective coronary angiogram. At the end of the diagnostic angiogram therapeutic heparin was administered giving a therapeutic ACT and the guide catheter was placed in left main artery followed by Choice PT extra-support wire placed down the LAD. A 3.5 x 22 mm [place] frontier stent was deployed at 18 patrick reducing the severe stenosis to 0%. ALVINA II flow was present at the beginning of the procedure with ALVINA-3 flow at the end of the procedure. At the end the procedure the apparatus was removed the sheath was removed and hemostasis was achieved using TR banding patient was transferred to the postop holding area in stable condition ANGIOGRAPHIC RESULTS The left main artery Normal The left anterior descending artery Has a stent in the proximal to mid segment which has a focal eccentric 80% in-stent restenotic lesion. The remaining vessel is widely patent The circumflex artery Large dominant with mild 10 to 20% luminal regularities The right coronary artery Nondominant yet still large with 10% luminal regularities The ALMAZAN ventriculogram reveals Dilated ventricle ejection fraction 30% The left ventricular end-diastolic pressure 15 mmHg IMPRESSION Severe to critical proximal LAD disease as described above Successful stenting of the proximal LAD severe disease reduced to 0% with 1 drug-eluting stent Reduced ejection fraction Mildly elevated LVEDP PLAN 1. Dual antiplatelet therapy 2. Cardiac rehabilitation 3. Avoidance of tobacco products 4. GDMT for systolic heart failure 5. If patient is RV pacing greater than 20% would consider CLINICAL LAB SCIENTIST 6. LDL less than 55 to be achieved at high intensity statin Electronically signed by : Monroe Lara MD 11/26/2024 10:43:13
[2024-11-26 08:44] LABS: Hematocrit 40.4 % (37.0-47.0); Hemoglobin 13.2 g/dL (12.2-16.2); Immature Granulocytes % 0.2 %; Mean Corpuscular HGB Conc 32.7 g/dL (31.8-35.4); Mean Corpuscular Hemoglobin 30.3 pg (27.0-31.2); Mean Corpuscular Volume 92.9 fl (81-99); Nucleated Red Blood Cells % 0 %; Platelet Count 156 K/mm3 (142-424); Red Blood Count 4.35 M/mm3 (4.20-5.40); Red Cell Distribution Width-SD 46.9 fL; White Blood Count 5.7 K/mm3 (4.8-10.8)
[2024-11-26 08:53] LABS: Chloride 106 mmol/L (98-107); Potassium 3.4 mmoL/L (3.5-5.1); Sodium 139 mmol/L (136-145)
[2024-11-26 08:56] LABS: Anion Gap 9.4 mEq/L (5-15); Blood Urea Nitrogen 16 mg/dl (7-17); Carbon Dioxide 27 mmol/L (22.0-30.0); Creatinine Clearance Estimated 46 mL/min (50-200); Creatinine,Serum 1.20 mg/dl (0.52-1.04); Estimated Glomerular Filt Rate 47 ml/min (>60); GFR (African American) 57 ML/MIN (>60); Glucose 136 mg/dl (74-100)
[2024-11-26 08:57] LABS: Calcium 8.6 mg/dl (8.4-10.2)
[2024-11-26] MEDS: HEPARIN 1,000 UNITS/500ML NS (CATH LAB) 3000 UNIT IV (09:42)
[2024-11-26] MEDS: NITROGLYCERIN 800MCG/8ML SYR (CATH LAB) 800 MCG IA (09:42)
[2024-11-26] MEDS: LIDOCAINE 1% 10ML MDV 10 ML IJ (09:42)
[2024-11-26] MEDS: FENTANYL 100MCG/2ML VIAL 50 MCG IV (09:43)
[2024-11-26] MEDS: VERAPAMIL 2.5MG/ML 2ML VIAL 2.5 MG IV (09:43)
[2024-11-26] MEDS: HEPARIN 1,000 UNITS/ML 10ML VIAL (CATH LAB) 5000 UNIT IV (09:43)
[2024-11-26] MEDS: 0.9 % SODIUM CHLORIDE 500 ML 25 ML IV (09:43)
[2024-11-26] MEDS: MIDAZOLAM HCL 1MG/ML 5ML VIAL 1 MG IV (09:43)
[2024-11-26] MEDS: ASPIRIN 325MG TABLET 325 MG PO (10:13)
[2024-11-26] MEDS: IOPAMIDOL-370 (76%);100ML BOTTLE 60 ML IV (11:41)
[2024-11-26 11:43] LABS: CATHL Activated Clotting Time 302 SEC (74-125)
== END 2024-11-26 14:04 | disposition home or self-care (01) ==
LOC: CATHLAB 07:59
PROVIDERS: PCP Nurse Practitioner Family; Visit Provider Internal Medicine
PROC: 4A023N7 Measurement of Cardiac Sampling and Pressure, Left Heart, Percutaneous Approach (ICD-10-PCS; CPT 93452; principal; 2024-11-26 07:15)
DX: I25.119 Atherosclerotic heart disease of native coronary artery with unspecified angina pectoris (principal); T82.855A Stenosis of coronary artery stent, initial encounter; I50.20 Unspecified systolic (congestive) heart failure; I48.91 Unspecified atrial fibrillation; R79.89 Other specified abnormal findings of blood chemistry; R94.39 Abnormal result of other cardiovascular function study; R94.31 Abnormal electrocardiogram [ECG] [EKG]; I25.2 Old myocardial infarction; E03.9 Hypothyroidism, unspecified; E78.2 Mixed hyperlipidemia; E66.813 Obesity, class 3; Z68.42 Body mass index [BMI] 45.0-49.9, adult; Z95.810 Presence of automatic (implantable) cardiac defibrillator; Z79.82 Long term (current) use of aspirin; Z79.84 Long term (current) use of oral hypoglycemic drugs; Z79.01 Long term (current) use of anticoagulants; Z79.02 Long term (current) use of antithrombotics/antiplatelets; Z79.890 Hormone replacement therapy; Z79.4 Long term (current) use of insulin; Z79.899 Other long term (current) drug therapy; Z79.3 Long term (current) use of hormonal contraceptives; Z95.5 Presence of coronary angioplasty implant and graft; Y71.8 Miscellaneous cardiovascular devices associated with adverse incidents, not elsewhere classified
CPT/HCPCS: 80048; 85025; 85347; 92928; 93458; 99152; C1725; C1769; C1874; C9600; J1200; J1644; J2003; J3010; J7040; Q9967

== ENCOUNTER 2024-12-18 11:34 | Outpatient (CLI) | payer MEDICARE, OTHER, SELFPAY ==
--- OUTSIDE RECORDS SUMMARY | 2024-12-18 11:45 | XMS_ITS | Clinical Summary ---
Author Organization [facility] Address [address] [place] [address] Phone Care Team Providers Care Screw Machine Adjuster Automatic Name Role Phone Unavailable Primary Care Provider [...] on file Sexual Orientation Not on file Plan of Treatment Health Maintenance Due Date [...] of 2) 2020 COVID-19 Vaccine (1 - 2024-2 6 season) 2024 Influenza Vaccine (#1) 2024 Meningococcal B Vaccine Aged Out No l onger eligible based on patient's age to complete this topic Insurance [employer] [facility] [place] [address] [address]
[2024-12-18 12:47] LABS: Anion Gap 13.5 mEq/L (5-15); Blood Urea Nitrogen 16 mg/dl (7-17); Calcium 8.7 mg/dl (8.4-10.2); Carbon Dioxide 28 mmol/L (22.0-30.0); Chloride 102 mmol/L (98-107); Creatinine,Serum 1.30 mg/dl (0.52-1.04); Estimated Glomerular Filt Rate 43 ml/min (>60); GFR (African American) 52 ML/MIN (>60); Glucose 176 mg/dl (74-100); Potassium 4.5 mmoL/L (3.5-5.1); Sodium 139 mmol/L (136-145)
== END 2024-12-18 23:59 | disposition home or self-care (01) ==
LOC: LAB 11:36
PROVIDERS: PCP Nurse Practitioner Family; Visit Provider Nurse Practitioner
DX: I25.10 Atherosclerotic heart disease of native coronary artery without angina pectoris (principal)
CPT/HCPCS: 36415; 80048